=== PATIENT | male | born 1945 | race Caucasian/White ===

== ENCOUNTER 2016-04-05 09:58 | Observation (INO) | payer OTHER ==
[~2016-04-05] VITALS: Ht 172.7 cm; Wt 74.8 kg
[~2016-04-05 09:58] MED LIST: APAP500 MG PO; ASPIR 8181 MG PO; CALCIUM CARBON650 M1 PO; CLOPIDOGREL75 MG PO; COLESTIPOL PO; FLOMAX(MONOGRA0.4 MG PO; LIPITOR80 MG PO; LOPRESSOR 25MG25 MG PO; MULTIVITAMIN1 TA1 PO; NITROSTAT0.4 MG PO; PREDNISONE 1 MG1 MG PO; VITAMIN D3 202000 IU PO; ZOLOFT 100 MG100 MG PO
--- NOTE | 2016-04-05 10:24 | ED AMS/SEIZURE/WEAK/DIZZY ---
History of Present Illness General Chief Complaint: Dizziness Stated Complaint: DIZZINESS THIS AM, +LOC, HIT HEAD ON TABLE Source: patient, family Exam Limitations: no limitations Vital Signs & Intake/Output Vital Signs & Intake/Output Vital Signs Date Time Temp Pulse Resp B/P Pulse O2 O2 Flow FiO2 Ox Delivery Rate 04/05 1514 101.0 73 101/78 04/05 1413 80 20 118/56 96 Room Air Room Air 04/05 1412 80 118/56 04/05 1354 98.0 58 20 102/60 98 Room Air 04/05 1336 97.0 46 20 94/54 98 Room Air 04/05 1247 58 85/53 04/05 1146 74 20 116/55 97 Room Air Room Air 04/05 1048 97 Room Air Room Air 04/05 1044 56 88/60 04/05 1042 58 94/53 04/05 1008 96.8 52 20 64/40 Allergies Coded Allergies: NO KNOWN ALLERGIES (06/24/11) Reconcile Medications Acetaminophen (Unknown Strength) TABLET (Unknown Dose) PO PRN PAIN (Reported) Aspirin (Ecotrin*) 81 MG TABLET.DR 1 TAB PO DAILY HEART/BLOOD (Reported) Calcium Carbonate (Calcium) (Unknown Strength) TABLET (Unknown Dose) PO DAILY SUPPLEMENT (Reported) Cholecalciferol (Vitamin D3) (Vitamin D) (Unknown Strength) TABLET (Unknown Dose) PO DAILY SUPPLEMENT (Reported) Clopidogrel Bisulfate (Clopidogrel) 75 MG TABLET 1 TAB PO DAILY BLOOD THINNER (Reported) Dm/P-Ephed/Acetaminoph/Doxylam (Nathalie-Bradford Plus Cold+Flu Pkt) (Unknown Strength) POWD.PACK (Unknown Dose) PO AD COLD SYMPTOMS (Reported) Ezetimibe (Zetia) 10 MG TABLET 1 TAB PO DAILY CHOLESTEROL (Reported) Lisinopril 2.5 MG TABLET 1 TAB PO DAILY HEART/BP (Reported) Metoprolol Succinate 25 MG TAB 1 TAB PO DAILY BP/HEART (Reported) Multivitamin (Multi-Day Vitamins) 1 EACH TABLET 1 TAB PO DAILY SUPPLEMENT ( Reported) Niacinamide (Niacin) (Unknown Strength) TABLET (Unknown Dose) PO DAILY SUPPLEMENT (Reported) Tamsulosin HCl (Flomax) 0.4 MG CAP.ER.24H 1 CAP PO DAILY PROSTATE (Reported) Triage Note: C/O WEAKNESS, DIZZINESS, COUGH X 4 DAYS. HAD SYNCOPAL EPISODE THIS AM, HIT R SIDE OF FOREHEAD PT ON COUMADIN. PMH: PACEMAKER, [place], Triage Nurses Notes Reviewed? yes Onset: Just prior to arrival Duration: day(s): (4) Timing: recent history Injury Environment: home Severity: moderate HPI: Patient is a 70-year-old male with history of pacemaker, [place] presenting to the emergency Department chief complaint syncopal episode that happened this morning. Patient was sitting at the kitchen table when he felt lightheaded and passed out. Over the past 4 days he reports that he's been feeling weak and tired, tactile chills and fevers. Per he had staggering gait when he gets up to use the bathroom at night over the past couple days. Patient does take Coumadin daily. Denies any nausea or vomiting. Denies any palpitations. No visual changes. He reports that his head hurts over where he hit his head but other than that no head pain. Denies any neck pain. No back pain. Denies abdominal pain. He does report some diarrhea over the past 24 hours. Denies any urinary symptoms. No vomiting. Denies taking anything to help with symptoms that he does report recent exposure to influenza. He did get a flu shot this year. All of his primary care physicians are at the [facility]. (GEOVANNA ABBOTT) Past History Travel History Traveled to [place] past 21 day No Medical History Any Pertinent Medical History? see below for history Cardiovascular: myocardial infarction Influenza Vaccine: 02/27/06 Surgical History Surgical History: cardiac stents, pacemaker Psychosocial History Who do you live with Spouse What is your primary language Khmer Tobacco Use: Current Not Daily ETOH Use: occasional use Family History Family History, If Any: MOTHER (HTN). Hx Contributory? No (GEOVANNA ABBOTT) Review of Systems Review of Systems Constitutional: Reports: see HPI, chills, malaise, weakness. Comments Review of systems: See HPI, All other systems negative. Constitutional, no weight loss HEENT: No visual changes no sore throat Cardiovascular: No chest pain ,palpitation , orthopnea or ankle swelling Skin, no jaundice no rashes Respiratory: No dyspnea cough sputum or hemoptysis GI: No nausea no vomiting : No dysuria No hematuria Muscle skeletal: no back pain, no neck pain, Neurologic: No numbness Psych: No stress anxiety or depression,. Heme/endocrine: No bruising no bleeding no polyuria or polydipsia Immunology: No splenectomy or history of AIDS (GEOVANNA ABBOTT) Physical Exam Physical Exam General Appearance: well developed/nourished, no apparent distress, alert, awake , comfortable Comments: Well-developed well-nourished person in no acute distress HEENT: extraocular motion intact, no nystagmus. Pupils equally round and reactive to light and accommodation. Nose is atraumatic. External auditory canal and Tympanic membranes clear. Pharynx normal. No swelling or edema. Large hematoma approximately 4 cm in diameter noted right frontal bone. No step-off or bogginess noted to palpation over entire scalp. Neck: Supple, no lymphadenopathy, normal range of motion without pain or tenderness, no C-spine tenderness. Back: Nontender, no CVA tenderness. Full range of motion Cardiovascular: Regular rate and rhythms no murmurs rubs or gallops, normal JVP Respiratory: Chest nontender. No respiratory distress.breath sounds clear to auscultation bilaterally Abdomen: Soft, nontender nondistended, no appreciable organomegaly. Normal bowel sounds. No ascites Extremity: No edema, no calf tenderness to palpation, normal and equal pulses. Full range of motion of all extremities without difficulty or pain. Supply Chain Procurement Manager strength is equal and symmetric bilaterally. Muscular strength is 5/5 in all extremities. Neuro: Alert oriented x3, motor sensory normal, cranial nerves II through XII grossly intact. Cerebellar testing is unremarkable. Negative drop arm test. Skin: Other than hematoma noted on the forehead, No otherappreciable rash on exposed skin, skin is warm and dry. Psych: Mood and affect is normal, memory and judgment is normal. Core Measures ACS in differential dx? Yes CVA/TIA Diagnosis: No Severe Sepsis Present: No Septic Shock Present: No (GEOVANNA ABBOTT) Progress Differential Diagnosis: intracranial hemorrhage, dehydration, electrolyteabnormality, orthostatic hypotension,influenza, viral syndrome, Plan of Care: Orders Procedure Date/time Status Regular Diet 04/06 D Active Heart Healthy Diet 04/05 D Active BLOOD CULTURE 04/05 1521 Active Patient Data 04/05 1419 Active OXYGEN SETUP (GEN) 04/05 1404 Active Saline Lock 04/[address] in observation 04/05 1404 Active Vital Signs 04/05 1404 Active Activity/Ambulation 04/05 1404 Active Code Status 04/05 1404 Active Intake & Output 04/05 1047 Active URINALYSIS 04/05 1024 Active RAPID VIRAL INFLUENZA A 04/05 1023 Complete VIRAL CULTURE 04/05 1023 Active TROPONIN LEVEL 04/05 1023 Complete PROTHROMBIN TIME 04/05 1023 Complete LACTIC ACID 04/05 1023 Complete COMPREHENSIVE METABOLIC PANEL 04/05 1023 Complete CBC WITHOUT DIFFERENTIAL 04/05 1023 Complete TYPE & SCREEN (NOT X-MATCH) 04/05 1023 Complete MISTAKE 04/05 1008 Active EKG 04/05 1003 Active Laboratory Tests 04/05/16 1323: Lactic Acid Cancelled 04/05/16 1030: Anion Gap 9, Estimated GFR > 60, BUN/Creatinine Ratio 34.0 H, Glucose 118 H, Lactic Acid 1.3, Calcium 9.5, Total Bilirubin 0.6, AST 36, ALT 44, Alkaline Phosphatase 73, Troponin I 0.05, Total Protein 6.3, Albumin 3.5, Globulin 2.8, Albumin/Globulin Ratio 1.3, PT 12.2, INR 1.16, CBC w Diff NO MAN DIFF REQ, RBC 5.40, MCV 94.3 H, MCH 32.3 H, RDW 14.4, MPV 8.2, Gran % 71.1, Lymphocytes % 12.0 L, Monocytes % 14.5 H, Eosinophils % 2.2, Basophils % 0.2, Absolute Granulocytes 5.2, Absolute Lymphocytes 0.9 L, Absolute Monocytes 1.1 H, Absolute Eosinophils 0.2, Absolute Basophils 0, PUBS MCHC 34.2 04/05/16 1023: Virus Culture Pending Microbiology 04/05 152 BLOOD: Blood Culture - ORD 04/05 152 BLOOD: Blood Culture - ORD Diagnostic Imaging: Viewed by Me: CT Scan. Discussed w/RAD: CT Scan. Radiology Impression: PATIENT: ASHLIE CHEUNG PRESENT AGE: 70 PATIENT ACCOUNT NO: [id number] : 46 LOCATION: [facility] ORDERING PHYSICIAN: GEOVANNA CARRILLO SERVICE DATE: 04/05/16-1001 EXAM TYPE: CAT - CT CERV SPINE WO IV CONTRAST; CT HEAD WO IV CONTRAST Addendum: The previously described right parotid nodule is not included on the [id number] on the current study. This could be further clinically correlated, or followed up with a CT scan of the neck. Addendum Signed by: RISSA NEWELL MD 04/05/16 7551 EXAMINATION: CT HEAD WITHOUT CONTRAST CT CERVICAL SPINE WITHOUT CONTRAST CLINICAL INFORMATION: Head injury and loss of consciousness. Assess for intracranial pathology or fracture. COMPARISON: CT scan of the head 07/20/2013. TECHNIQUE: Multidetector CT imaging of the head and cervical spine was performed without the use of intravenous contrast. Coronal and sagittal reformatted images were generated at the technologist workstation. DLP: 991.35 mGy-cm. FINDINGS: CT head: There is no evidence of acute intracranial hemorrhage or territorial infarction. No abnormal mass-effect or midline shift is seen. Ervin to white matter differentiation is well preserved. No extra-axial fluid collections are identified. The ventricles and sulci are commensurately prominent consistent with mild diffuse volume loss, similar compared to the prior study. There are bilateral basal ganglia and left thalamic lacunar infarcts, similar compared to the prior study. There are scattered areas of low attenuation in the periventricular and subcortical white matter, consistent with chronic microvascular ischemic changes. There is a right supraorbital scalp hematoma without evidence of laceration. No fractures are demonstrated. The mastoid air cells are well-aerated. There is relatively extensive mucoperiosteal thickening in the bilateral ethmoid and sphenoid sinuses. There is mucoperiosteal thickening and likely retention cyst formation in the left maxillary sinus. CT cervical spine: There is straightening of the cervical lordosis. There are no compression fractures and vertebral body heights are maintained. There is multilevel narrowing of intervertebral disc height, most severe at C5-C6 and C6- C7. There are uncovertebral osteophytes and foraminal narrowing, most prominent on the right. There are facet arthropathic changes. The atlantoaxial distance is decreased consistent with degenerative changes. The prevertebral soft tissues are unremarkable. The lateral masses of C1 and C2 are normally aligned and the dens is intact. Atlantooccipital alignment is normal. The cervicomedullary and spinal cord are grossly unremarkable. There are relatively extensive atheromatous calcifications of the neck vessels. Left chest pacemaker generated and 2 leads are partially demonstrated. There are 4 mandibular dental implants. There are sequelae of prior median sternotomy. There is a stent in the left subclavian artery. The imaged lung apices are clear. IMPRESSION: 1. There are no acute bleeds or territorial infarcts. 2. There is a right supraorbital scalp contusion. There are no acute calvarial fractures. 3. There are changes consistent with diffuse volume loss and there are sequelae of chronic vascular changes. 4. There are no acute fractures or subluxations in the cervical spine. 5. There are multilevel degenerative changes. DICTATED BY: RISSA NEWELL MD DATE/ TIME DICTATED:04/05/161114 CHUCKING MACHINE SET UP OPERATOR TOOL:QUETA DATE/TIME TRANSCRIBED: 04/05/161114 CXR Impression: PATIENT: ASHLIE CHEUNG PRESENT AGE: 70 PATIENT ACCOUNT NO: [id number] : 46 LOCATION: [facility] ORDERING PHYSICIAN: GEOVANNA CARRILLO SERVICE DATE: 04/05/16 EXAM TYPE: RAD - XRY-PORTABLE CHEST XRAY EXAMINATION: XR PORTABLE CHEST CLINICAL INFORMATION: Syncope. COMPARISON: Chest x-ray 07/21/2013 TECHNIQUE: Portable AP view of the chest was obtained. 2:17 PM FINDINGS: Status post median sternotomy for CABG. Vascular stent left superior mediastinum. Pacemaker lead in right atrium and right ventricle in good position. No pulmonary vascular congestion. Lungs are clear. No pleural effusion. IMPRESSION: No acute abnormality of the chest. Initial ED EKG: NSR (82) Prior EKG: unchanged Comments: on arrival patient is hypotensive, alert and oriented, cranial nerves are intact. Patient is on Coumadin with a head injury. Patient will go for CT of the head and neck. IV fluids initiated. Blood work was drawn and sent including type and screen. Flu swab sent. Patient is resting well. Declined pain medication. 04/05/2016 1:20:20 PM patient informed of all lab work results and imaging results. Patient has influenza. Blood pressure seems to be responding to fluids, patient reports that he still feeling fatigued and lightheaded intermittently. Patient will be admitted for IV hydration, neuro checks secondary to head injury on Coumadin, influenza. Patient still neurologically intact. (JOHNIE CARRILLO,GEOVANNA) Departure Departure Time of Disposition: 1307 Disposition: STILL A PATIENT Condition: Stable Clinical Impression Primary Impression: Influenza A Secondary Impressions: Hypotension Qualifiers: Hypotension type: unspecified hypotension type Qualified Code: I95.9 - Hypotension, unspecified Syncope Qualifiers: Syncope type: unspecified Qualified Code: R55 - Syncope and collapse Referrals: PATIENT HAS NO PRIMARY CARE DR (PCP/Family) Departure Forms: Customer Survey General Discharge Information Admission Note Documentation of Exam: Documentation of any treatments & extenuating circumstances including Concerns Regarding Discharge (functional status, medication knowledge or non-compliance, living conditions, etc.) that warrant an admission rather than observation: Observation Note Spoke With: AC CHAU,DAYANNA Physician Advisor Notified: WAN CHAU,TULIO Garcia Place Patient In: Non-ED OBS Care Area Rationale for Observation: My rational for observation is as follows . Patient requiring IV hydration, blood pressure checks, neuro checks secondary to head injury and on Coumadin. Discharge at this time would be medically harmful, we need to monitor for episode of hypotension again. (JOHNIE CARRILLO,GEOVANNA) PA/DIRECTOR OF OUTSIDE SALES Co-Sign Statement Statement: ED Attending supervision documentation- x I saw and evaluated the patient. I have also reviewed all the pertinent lab results and diagnostic results. I agree with the findings and the plan of care as documented in the PA's/DIRECTOR OF OUTSIDE SALES's documentation. [] I have reviewed the ED Record and agree with the PA's/DIRECTOR OF OUTSIDE SALES's documentation. [] Additions or exceptions (if any) to the PAs/DIRECTOR OF OUTSIDE SALES's note and plan are summarized below: [] (MIRTHA CHAU,CM)
[2016-04-05 10:48] LABS: ABSOLUTE BASOPHIL COUNT 0 /CUMM (0.0-0.2); ABSOLUTE EOSINOPHIL COUNT 0.2 /CUMM (0.0-0.7); ABSOLUTE GRANULOCYTE CT 5.2 /CUMM (1.4-6.5); ABSOLUTE LYMPH COUNT 0.9 /CUMM (1.2-3.4); ABSOLUTE MONOCYTE COUNT 1.1 /CUMM (0.10-0.60); BASOPHIL % 0.2 % (0.0-2.0); EOSINOPHIL % 2.2 % (0-5); GRANULOCYTE % 71.1 % (42.2-75.2); HEMATOCRIT 50.9 % (42-52); MEAN CORPUSCULAR HGB 32.3 PG (27.0-31.0); MEAN CORPUSCULAR HGB CONC 34.2 G/DL (33.0-37.0); MEAN CORPUSCULAR VOLUME 94.3 FL (80.0-94.0); MEAN PLATELET VOLUME 8.2 FL (7.4-10.4); PLATELET COUNT 135 /CUMM (130-400); RBC DISTRIBUTION WIDTH 14.4 % (11.5-14.5); WHITE BLOOD CELL COUNT 7.4 /CUMM (4.8-10.8)
[2016-04-05 10:59] LABS: PT 12.2 SEC (9.4-12.5)
--- NOTE | 2016-04-05 11:39 | CT SCAN REPORT ---
EXAMINATION: CT HEAD WITHOUT CONTRAST CT CERVICAL SPINE WITHOUT CONTRAST CLINICAL INFORMATION: Head injury and loss of consciousness. Assess for intracranial pathology or fracture. COMPARISON: CT scan of the head 07/20/2013. TECHNIQUE: Multidetector CT imaging of the head and cervical spine was performed without the use of intravenous contrast. Coronal and sagittal reformatted images were generated at the technologist workstation. DLP: 991.35 mGy-cm. FINDINGS: CT head: There is no evidence of acute intracranial hemorrhage or territorial infarction. No abnormal mass-effect or midline shift is seen. Ervin to white matter differentiation is well preserved. No extra-axial fluid collections are identified. The ventricles and sulci are commensurately prominent consistent with mild diffuse volume loss, similar compared to the prior study. There are bilateral basal ganglia and left thalamic lacunar infarcts, similar compared to the prior study. There are scattered areas of low attenuation in the periventricular and subcortical white matter, consistent with chronic microvascular ischemic changes. There is a right supraorbital scalp hematoma without evidence of laceration. No fractures are demonstrated. The mastoid air cells are well-aerated. There is relatively extensive mucoperiosteal thickening in the bilateral ethmoid and sphenoid sinuses. There is mucoperiosteal thickening and likely retention cyst formation in the left maxillary sinus. CT cervical spine: There is straightening of the cervical lordosis. There are no compression fractures and vertebral body heights are maintained. There is multilevel narrowing of intervertebral disc height, most severe at C5-C6 and C6-C7. There are uncovertebral osteophytes and foraminal narrowing, most prominent on the right. There are facet arthropathic changes. The atlantoaxial distance is decreased consistent with degenerative changes. The prevertebral soft tissues are unremarkable. The lateral masses of C1 and C2 are normally aligned and the dens is intact. Atlantooccipital alignment is normal. The cervicomedullary and spinal cord are grossly unremarkable. There are relatively extensive atheromatous calcifications of the neck vessels. Left chest pacemaker generated and 2 leads are partially demonstrated. There are 4 mandibular dental implants. There are sequelae of prior median sternotomy. There is a stent in the left subclavian artery. The imaged lung apices are clear. IMPRESSION: 1. There are no acute bleeds or territorial infarcts. 2. There is a right supraorbital scalp contusion. There are no acute calvarial fractures. 3. There are changes consistent with diffuse volume loss and there are sequelae of chronic vascular changes. 4. There are no acute fractures or subluxations in the cervical spine. 5. There are multilevel degenerative changes.
[2016-04-05] MEDS ORDERED: METOPROLOL SUCC25 M1 PO (13:36)
[2016-04-05] MEDS ORDERED: LISINOPRIL2.5 M1 PO (13:37)
[2016-04-05] MEDS ORDERED: ZETIA10 M1 PO (13:37)
[2016-04-05] MEDS ORDERED: CLOPIDOGREL75 M1 PO (13:38)
[2016-04-05] MEDS ORDERED: FLOMAX0.4 M1 PO (13:38)
[2016-04-05] MEDS ORDERED: MULTI-DAY VITA1 EACH PO (13:39)
[2016-04-05] MEDS ORDERED: NIACIN500 M6 PO (13:39)
[2016-04-05] MEDS ORDERED: ASPIRIN EC81 M1 PO (13:39)
[2016-04-05] MEDS ORDERED: VITAMIN D2000 UNI1 PO (13:40)
[2016-04-05] MEDS ORDERED: CALCIUM600 M2 PO (13:40)
[2016-04-05] MEDS ORDERED: ACETAMINOPHEN500 M4 PO (13:41)
[2016-04-05] MEDS ORDERED: ALKA-SELTZER P1 EA10 PO (13:42)
--- NOTE | 2016-04-05 14:55 | RADIOLOGY REPORT ---
EXAMINATION: XR PORTABLE CHEST CLINICAL INFORMATION: Syncope. COMPARISON: Chest x-ray 07/21/2013 TECHNIQUE: Portable AP view of the chest was obtained. 2:17 PM FINDINGS: Status post median sternotomy for CABG. Vascular stent left superior mediastinum. Pacemaker lead in right atrium and right ventricle in good position. No pulmonary vascular congestion. Lungs are clear. No pleural effusion. IMPRESSION: No acute abnormality of the chest.
--- NOTE | 2016-04-05 15:28 | History & Physical ---
KATHRYN LIVE MD 04/05/16 1527: General Information and HPI Source of Information: patient, family Exam Limitations: no limitations History of Present Illness: Patient is a 67-year-old male with a past medical history of CAD status post CABG in 1998, history of PCI of his RCA and left subclavian artery, peripheral vascular disease,1st-degree AV block, Polymyalgia rheumatica,Benign prostatic hypertrophy, left femoral pseudoaneurysm, femoral bypass,Dyslipidemia,back surgery(meniscus surgery for L5-S1 degenerative disc disease) obstructive sleep apnea, myotonic dystrophy, posttraumatic stress disorder, rotator cuff surgery with continued with chief complaints of generalized body ache, runny nose since last 3-4 days, and an episode of fall in morning. Patient claims that he was sitting at the kitchen table when he felt lightheaded and suddenly fell down,followed by hitting of his face and head.He developed bruise and hematoma in right frontal area. He denies any palpitation, headache, blurry vision, loss of consciousness, episode of seizure,tongue bite, incontinence of stool and urine. He was having very loose and flulike symptoms since last 3-4 days for that. He took some herbal remedies. He did not follow any Doctor.He also claims that he feels dehydrated as his fluid intake is very low and also he has sick contact.His daughter is sick with flu. He also has couple of episodes of diarrheasince 1-2 days. Allergies/Medications Allergies: Coded Allergies: NO KNOWN ALLERGIES (06/24/11) Home Med list Acetaminophen (Unknown Strength) TABLET (Unknown Dose) PO PRN PAIN (Reported) Aspirin (Ecotrin*) 81 MG TABLET.DR 1 TAB PO DAILY HEART/BLOOD (Reported) Calcium Carbonate (Calcium) (Unknown Strength) TABLET (Unknown Dose) PO DAILY SUPPLEMENT (Reported) Cholecalciferol (Vitamin D3) (Vitamin D) (Unknown Strength) TABLET (Unknown Dose) PO DAILY SUPPLEMENT (Reported) Clopidogrel Bisulfate (Clopidogrel) 75 MG TABLET 1 TAB PO DAILY BLOOD THINNER (Reported) Dm/P-Ephed/Acetaminoph/Doxylam ([place] Plus Cold+Flu Pkt) (Unknown Strength) POWD.PACK (Unknown Dose) PO AD COLD SYMPTOMS (Reported) Ezetimibe (Zetia) 10 MG TABLET 1 TAB PO DAILY CHOLESTEROL (Reported) Lisinopril 2.5 MG TABLET 1 TAB PO DAILY HEART/BP (Reported) Metoprolol Succinate 25 MG TAB 1 TAB PO DAILY BP/HEART (Reported) Multivitamin (Multi-Day Vitamins) 1 EACH TABLET 1 TAB PO DAILY SUPPLEMENT ( Reported) Niacinamide (Niacin) (Unknown Strength) TABLET (Unknown Dose) PO DAILY SUPPLEMENT (Reported) Tamsulosin HCl (Flomax) 0.4 MG CAP.ER.24H 1 CAP PO DAILY PROSTATE (Reported) Past History Travel History Traveled to [place] past 21 day No Medical History Cardiovascular: myocardial infarction Influenza Vaccine: 02/27/06 Surgical History Surgical History: cardiac stents, pacemaker Past Family/Social History Family History Relations & Conditions if any MOTHER (HTN). Psychosocial History ETOH Use: occasional use Review of Systems Review of Systems Constitutional: Reports: fever, weakness. Denies: chills, diaphoresis. EENTM: Reports: nasal congestion. Cardiovascular: Denies: chest pain, edema, orthopena, palpitations, peripheral edema. Respiratory: Denies: cough, hemoptysis, orthopnea, short of breath, sputum production. GI: Denies: abdominal pain, bloating, constipation, diarrhea, distention, bowel incontinence, melena, nausea. Genitourinary: Denies: discharge, dysuria, frequency, hematuria, hesitation. Musculoskeletal: Denies: back pain, gout, joint pain, joint swelling, muscle pain, muscle stiffness. Skin: Denies: no symptoms. Neurological/Psychological: Reports: anxiety. Exam & Diagnostic Data Last 24 Hrs of Vital Signs/I&O Vital Signs Date Time Temp Pulse Resp B/P Pulse O2 O2 Flow FiO2 Ox Delivery Rate 04/05 1749 78 98/52 04/05 1745 Room Air Room Air 04/05 1744 98.4 04/05 1731 98.4 78 20 98/52 94 04/05 1659 101.3 77 20 94/55 100 Room Air Room Air 04/05 1650 101.3 04/05 1514 101.0 73 101/78 04/05 1413 80 20 118/56 96 Room Air Room Air 04/05 1412 80 118/56 04/05 1354 98.0 58 20 102/60 98 Room Air 04/05 1336 97.0 46 20 94/54 98 Room Air 04/05 1247 58 85/53 04/05 1146 74 20 116/55 97 Room Air Room Air 04/05 1048 97 Room Air Room Air 04/05 1044 56 88/60 04/05 1042 58 94/53 04/05 1008 96.8 52 20 64/40 Intake & Output 04/05 1600 04/05 0800 04/05 0000 Intake Total 3000 Output Total Balance 3000 Intake, IV 3000 Patient 74.843 kg Weight Physical Exam General Appearance Alert, Oriented X3, Cooperative, No Acute Distress Skin No Rashes, No Breakdown HEENT Atraumatic, PERRLA, EOMI Neck Supple, No JVD Cardiovascular Normal S1, Normal S2 Lungs mild basilar MORE on the right side Abdomen Soft, No Tenderness, No Hepatospenomegaly Neurological Normal Speech Assessment/Plan Assessment: Patient is a 67-year-old male with a past medical history of CAD status post CABG in 1998, history of PCI of his RCA and left subclavian artery, peripheral vascular disease,1st-degree AV block, Polymyalgia rheumatica,Benign prostatic hypertrophy, left femoral pseudoaneurysm, femoral bypass,Dyslipidemia,back surgery(meniscus surgery for L5-S1 degenerative disc disease) obstructive sleep apnea, myotonic dystrophy, posttraumatic stress disorder, rotator cuff surgery with continued with chief complaints of generalized body ache, runny nose since last 3-4 days, and an episode of fall in morning. Vital signs at the time of admission -Tem-101.0,P-52.RR-20,BP-64/40 Pertinent -hemoglobin 17.4, hematocrit 50.9, CT head and cervical spine - * No any acute bleed or territorial infarcts, no acute calvarial fractures, no acute fractures or subluxation in the cervical spine, * right suborbital scalp contusion was seen, diffuse volume loss, probably secondary to chronic vascular changes,multilevel degenerative disease in cervical spine. Chest Xray - s/p Median sternostomy for CABG, sclera stent left superior mediastinum, pacemaker lead in the right atrium and the right ventricle and good position, no pulmonary vascular congestion or any acute cardiopulmonary changes. Problem list - Influenza A Hypotension, probably secondary to dehydration or diarrhea CAD status post CABG in 1998, history of PCI of his RCA and left subclavian artery, peripheral vascular disease, 1st-degree AV block, Polymyalgia rheumatica on prednisone, Benign prostatic hypertrophy, left femoral pseudoaneurysm, femoral bypass, Hypertension Hyperlipidemia back surgery(meniscus surgery for L5-S1 degenerative disc disease) myotonic dystrophy, posttraumatic stress disorder, rotator cuff surgery Plan - * As the patient is having multiple cardiac problems, including CHF, pacemaker, and he fell down without any awareness. We will observe the patient for signs of arrhythmias. * Admit the patient in the telemetry * We'll start patient on IV fluid as he presented with a low blood pressure, probably secondary to dehydration or fever or diarrhea * We will repeat the echocardiogram to know cardiac status * We'll continue all home medication * We will regularly monitor CBC and BEP * The flu test was positive,for influenza A, as he had multiple medical problems presented with the shock and his age is more than 66. although, he is out of the time period of 48hrs, Iwould still think for tamiflu, although I will discuss with attending and follow his rcms * Strict intake output charting * Daily weight * DVT prophylaxis-heparin/ALP S * CODE STATUS-full code As Ranked By This Provider Problem List: 1. Syncope Qualifiers Syncope type: unspecified Qualified Code: R55 - Syncope and collapse 2. Influenza A 3. Peripheral vascular disease 4. CAD S/P BYPASS- 4 VESSELS 5. Degeneration of lumbosacral intervertebral disc 6. Dizziness Core Measures/Miscellaneous Acute Coronary Syndrome ACS Diagnosis: No Cerebrovascular Accident CVA/TIA Diagnosis: No Congestive Heart Failure CHF Diagnosis: No Venous Thromboembolism VTE Risk Factors: Age > 40 VTE Prophylaxis Ordered Inpt: Mechanical (ALPS/TEDS) [facility] d/t: No contraindications No VTE Pharm Prophylaxis d/t: No contraindications VTE Diagnosis: No VTE Type: NONE VTE Confirmed by (Test): NONE Severe Sepsis Severe Sepsis Present: No Septic Shock Septic Shock Present: No Miscellaneous Documentation Attending Case Discussed With: DAYANNA SHEN MD Primary Care Physician: PATIENT HAS NO PRIMARY CARE DR Patient sees these Specialists none Level of Patient Care: Telemetry HENRY POWELL 04/05/16 1528: Resident Review Statement Resident Statement: examined this patient, discussed with environmental intern, agreed with environmental intern Other Findings: This is a 70-year-old male past medical history of coronary artery disease status post CABG 4 vessels (1998) and PCI, peripheral artery disease status post femoral popliteal bypass (remote history, questionable myotonic dystrophy, polymyalgia rheumatica on prednisone, posttraumatic stress disorder , hyperlipidemia, degenerative disc disease, presented with chief complaint of syncopal episode that happened this morning. He was sitting at the kitchen table when he felt lightheaded and passed out.He fell on his face and hit the right frontal area and had a mild bruise.He is unsure if he lost conciousness or not. He denied seizure like activity, loss of blowel ,bladder control,chest pain, tongue biting or any prior aura. Over the past 4 days he reports that he's been feeling weak and tired, chills and fever. Per the he has been having staggering gait for the last couple of days. Of note patient is on daily Coumadin therapy. With the fall he did hurt his head, however he does not complain of any headache. He denies any nausea, vomiting, back pain, abdominal pain. He does report some diarrhea over the last 24 hours. Positive contact history for flu. Vitals on admission : MAXIMUM TEMPERATURE of 101, pulse of 50-80, respiration of 20, blood pressure in the range of 85 218 systolic and 50-60 diastolic. He was saturating 98% on room air. White count of 7.4, H/H was 17.4/50.9, platelet of 135. Electrolytes within the normal limit BUN and creatinine 34/1.0, sodium of 139. Glucose of 118. CT head and cervical spine did not show any acute bleed or territorial infarcts, right suborbital scalp contusion was seen, there were no acute calvarial fractures. Changes were consistent with diffuse volume loss, which could be a sequelae of chronic vascular changes, no acute fractures or subluxation in the cervical spine, multilevel degenerative disease. Chest Xray s/p Median sternostomy for CABG, sclera stent left superior mediastinum, pacemaker lead in the right atrium and the right ventricle and good position, no pulmonary vascular congestion or any acute cardiopulmonary changes. EKg : NSR, first degree Av block VT : 224, Qtc : 435,PVC's At the emergency room department he received 3 L of normal saline bolus. Problem list alongwith assesment and plan : 1. Mechanical fall ? syncope * Possible causes nuerogenic v/s cardiogenic syncope * check orthostatic vital signs. * Continue telemetry monitoring, rule out caridac cuase of syncope, rule out arrythmia. * Patient is very dehydrated. * Ct iv fluid supplementation. * PAtient recived 3 litres ofnromal saline, will continue gentle iv hydration at 75ml/hour * Previous echo is 2006, EF of 35 to 40%, will get another echo atthis admission. * Cautious with hydration. * Patient unsure lost conciousness or not, denied seizure like activity * ct nuerochecks * Denied complaint of sweating , or light headedness,palpitations or blurring of vision that would be consistent with vasovagal syncope. #2 Rapid Flu positive * Patient beyond 48 hours, therefore doesnot seem to be candidate fro tamiflu * Ct iv hydration * CT monitoring vitals closely. #3 Hypotension * 2/2 to volume loss due to dehydration * Ct iv hydration ct to monitor BP closely. #4 H/o CAD status post CABG * Stable * Ct home medications. * Ct metoprolol * Ct Zetia #5 right supraorbital scalp contusion * 2/2 to fall and hitting the head. * Willhold asprin for now. * Will ct DVT px with ALPS. #6 H/o Myotonic dystrophy. * Stable. Ct rest of home medicatinos for chronic illness. FC Mild/moderate, severe pain pathway DVT px : SERAFIN SHEN MD,[facility] 04/05/161950: Attending MD Review Statement Attending Statement Attending MD Statement: examined this patient, discuss w/resident/PA/STRETCHING PRESS OPERATOR, agreed w/resident/PA/STRETCHING PRESS OPERATOR, discussed with nursing Attending Assessment/Plan: 70M PMH CAD s/p CABG, PVD, HTN, BPH presenting with syncopal episode. Patient has been feeling weak and ill for 4 days and has not been eating or drinking much. He was sitting drinking coffee when he woke up on the floor. Lost consciousness for a second or two, no post-ictal state, no symptoms prior to syncope. Hit his right forehead on the ground, but does not complain of headache, vision changes, or any neurological complaints. Found to be influenza positive in ED. Appears dehydrated clinically and by labs. Ecchmosis on right forehead, exam otherwise benign. Initially hypotensive 66/40 but improved to 110/70 after 2L NS. Plan - Observation on telemetry - Continue gentle IV hydration, received 3L normal saline thus far - Not a candidate for Tamiflu given timing of symptoms - No antibiotics - Monitor renal function and electrolytes - Obtain echocardiogram - Continue home medications - DVT PPx
[2016-04-05 17:31] VITALS: BP 98/52
[2016-04-05 23:05] VITALS: BP 92/64
[2016-04-06 07:49] LABS: ABSOLUTE BASOPHIL COUNT 0 /CUMM (0.0-0.2); ABSOLUTE EOSINOPHIL COUNT 0.2 /CUMM (0.0-0.7); ABSOLUTE GRANULOCYTE CT 4.3 /CUMM (1.4-6.5); ABSOLUTE LYMPH COUNT 1.2 /CUMM (1.2-3.4); ABSOLUTE MONOCYTE COUNT 0.8 /CUMM (0.10-0.60); BASOPHIL % 0.2 % (0.0-2.0); GRANULOCYTE % 65.6 % (42.2-75.2); MEAN CORPUSCULAR HGB 31.8 PG (27.0-31.0); MEAN CORPUSCULAR VOLUME 93.4 FL (80.0-94.0); MEAN PLATELET VOLUME 8.9 FL (7.4-10.4); RBC DISTRIBUTION WIDTH 14.3 % (11.5-14.5); RED BLOOD CELL CT 4.78 /CUMM (4.70-6.10); WHITE BLOOD CELL COUNT 6.5 /CUMM (4.8-10.8)
[2016-04-06 08:00] VITALS: BP 90/58
--- NOTE | 2016-04-06 08:05 | PN- Housestaff ---
MARIA T CHAU,KATHRYN 04/06/16 0805: Subjective Follow-up For: Syncope Influenza A Dehydration Complaints: PT is feeling much uncomfortable in the hospital because of the bed, he want to go home as soon as possible Tele-Events Since Last Visit: No overnight events, continues to have first-degree block Subjective: Patient is seen and examined at the bedside. He was much better than yesterday. He denies of any dizziness, nausea, vomiting, chest pain. His weakness has been improved. Discussed with the nurse, according to her his blood pressure is continuously towards lower side. Also, he is negative for orthostatic hypotension. According to the patient his baseline blood pressure is always been near 105/70. Review of Systems Constitutional: Denies: no symptoms. EENTM: Denies: no symptoms. Cardiovascular: Denies: no symptoms. Respiratory: Denies: no symptoms. Gastrointestinal: Denies: no symptoms. Genitourinary: Denies: no symptoms. Musculoskeletal: Denies: no symptoms. Skin: Denies: no symptoms. Neurological/Psychological: Denies: no symptoms. Objective Last 24 Hrs of Vital Signs/I&O Vital Signs Date Time Temp Pulse Resp B/P Pulse O2 O2 Flow FiO2 Ox Delivery Rate 04/06 1739 97.7 / 1626 97.7 77 20 96/70 93 /08 1607 97.9 /08 1130 69 98/70 02/08 1114 98.5 02/08 1106 77 90/58 /08 1106 77 90/58 /08 1104 77 90/58 /08 0800 98.3 77 20 90/58 93 Room Air 04/06 0542 99.1 / 0000 96 Room Air 04/05 2305 98.4 72 22 92/64 96 Room Air 04/05 2230 98.4 Intake & Output 04/06 1600 /08 0800 /08 0000 Intake Total 1340 1080 1080 Output Total 450 725 350 Balance 890 355 730 Intake, IV 700 600 600 Intake, Oral 640 480 480 Number 0 Bowel Movements Output, Urine 450 725 350 Patient 74.843 kg Weight Physical Exam General Appearance: Alert, Oriented X3, Cooperative, No Acute Distress Skin: No Rashes, small bluish discoloration on right supraorbital area HEENT: Atraumatic, PERRLA, EOMI Neck: Supple, No JVD Cardiovascular: Regular Rate, Normal S1, Normal S2 Lungs: mild basilar crackles Abdomen: Normal Bowel Sounds, Soft, No Tenderness Neurological: Normal Speech Extremities: No Clubbing, No Cyanosis, No Edema Vascular: Normal Pulses, Pulses Symmetrical Assessment/Plan Assessment: Patient is a 67-year-old male with a past medical history of CAD status post CABG in 1998, history of PCI of his RCA and left subclavian artery, peripheral vascular disease,1st-degree AV block, Polymyalgia rheumatica,Benign prostatic hypertrophy, left femoral pseudoaneurysm, femoral bypass,Dyslipidemia,back surgery(meniscus surgery for L5-S1 degenerative disc disease) obstructive sleep apnea, myotonic dystrophy, posttraumatic stress disorder, rotator cuff surgery with continued with chief complaints of generalized body ache, runny nose since last 3-4 days, and an episode of fall in morning. Vital signs-temperature 97.7, pulse 77, respiratory rate 20, blood pressure 96/ 70, SPO2 93% on room air Orthostatic vitals -blood pressure 98/70 on lying, 92/56 on sitting, 82/54 on standing Problem list- Problem list - Influenza A right supraorbital scalp contusion Hypotension, probably secondary to dehydration or diarrhea CAD status post CABG in 1998, history of PCI of his RCA and left subclavian artery, peripheral vascular disease, 1st-degree AV block, Polymyalgia rheumatica on prednisone, Benign prostatic hypertrophy, left femoral pseudoaneurysm, femoral bypass, Hypertension Hyperlipidemia back surgery(meniscus surgery for L5-S1 degenerative disc disease) myotonic dystrophy, posttraumatic stress disorder, rotator cuff surgery NOTE -According to the patient, he was given 80 mgs of atorvastatin, 3-4 years ago and later he started having generalized body ache and muscle weakness. Doctors at [facility] were not able to accurately find the cause, thats why they did the muscle biopsy and found that the he is having myotonic dystrophy. As atorvastatin exacerbate his symptoms, he doesn't want to take it again. Plan - * We will continue to observe the patient in the telemetry * We will increase the IV fluid 100 mL per hour,as his blood pressure is low * We will follow the echocardiogram * We'll withhold the lisinopril and metoprolol as his blood pressure is lower side * We will restart his aspirin and clopidogrel * His magnesium was 2 * We will regularly monitor CBC and BEP * The flu test was positive,for influenza A, as he had multiple medical problems presented with the shock and his age is more than 66. although, he is out of the time period of 48hrs, I would still think for tamiflu, although I will discuss with attending and follow his rcms * Strict intake output charting * Daily weight * DVT prophylaxis-heparin/ALP S * CODE STATUS-full code Problem List: 1. Syncope 2. Hypotension 3. Influenza A 4. Scalp contusion Pain Ratin Pain Location: right supraorbital area Pain Goal: Remain pain free Pain Plan: mild Tomorrow's Labs & Rationales: cbc, bep, Mg DVT/Prophylaxis: mechanical, pharmacological DAYANNA SHEN MD 04/06/16 1157: Attending MD Review Statement Attending Statement Attending MD Statement: examined this patient, discuss w/resident/PA/CERTIFIED REGISTERED NURSE PRACTITIONER, agreed w/resident/PA/CERTIFIED REGISTERED NURSE PRACTITIONER, reviewed EMR data (avail) Attending Assessment/Plan: 70M PMH CAD s/p CABG, PVD, HTN, BPH presenting with syncopal episode. Patient has been feeling weak and ill for 4 days and has not been eating or drinking much. He was sitting drinking coffee when he woke up on the floor. Lost consciousness for a second or two, no post-ictal state, no symptoms prior to syncope. Hit his right forehead on the ground, but does not complain of headache, vision changes, or any neurological complaints. Found to be influenza positive in ED. Appears dehydrated clinically and by labs. Ecchmosis on right forehead, exam otherwise benign. Patient feels much better today. He is eating and drinking well and his only complaint is that he did not sleep well in the hospital bed. Vitals have improved, afebrile overnight. Plan - Continue gentle IV hydration, received 3L normal saline thus far - Not a candidate for Tamiflu given timing of symptoms - No antibiotics - Monitor renal function and electrolytes - Obtain echocardiogram - Continue home medications - DVT PPx - Pending echocardiogram and ambulation, patient can be discharged this afternoon or tomorrow morning
[2016-04-06 08:14] LABS: HEMATOCRIT 44.7 % (42-52); PLATELET COUNT 118 /CUMM (130-400)
[2016-04-06 11:30] VITALS: BP 98/70
--- NOTE | 2016-04-06 15:23 | Cons- Cardiology ---
General Information and HPI Consulting Request Date of Consult: 04/06/16 Requested By: DAYANNA SHEN MD History of Present Illness: This patient is a 70 year old male with history of coronary artery disease, status post coronary artery bypass grafting back in 1998. This consisted of 4 grafts and he also had aortobifemoral bypass 15-20 years ago. In addition, the patient has a known chronic first degree AV block. The patient was initially seen in the setting of an acute inferior wall myocardial infarction for which TNK was administered. The patient's current admission is for syncope. He has had "Flu-like" symptoms of weakness, runny nose and generalized achiness. He was sitting at his kitchen table when he noted some premonitory symptoms of lightheadedness without palpitations and then subsequently passed out. In general he has not been feeling lightheaded and otherwise denies any chest pain, pressure or tightness, shortness of breath or palpitations. The patient does feel back to normal at this point in time. It should be noted that this patient has a myotonic dystrophy and does not have the muscle strength that he once had. This patient had a cardiac catheterization performed by Dr. Comer at the [facility] prior to a surgical procedure. This resulted in a difficult but successful angioplasty of the right coronary artery with 2 drug-eluting stents, a Premier 3.5 x 60 mm stent and a 3 x 12 mm stent, both placed in the mid RCA. The patient also had a left subclavian angioplasty performed for a total subclavian occlusion. With this procedure, the patient's symptoms of chest and arm discomfort have completely resolved. An echocardiogram was also obtained during this admission. It did show a decreased ejection fraction of 23% with global hypokinesis, including the mid anterolateral, apical wall and inferior wall. The right ventricle was normal in size and function. In terms of the cardiac valves, there was mild mitral and trace tricuspid regurgitation. This did represent a decrease in his EF from a previous EF of approximately 40%. Allergies/Medications Allergies: Coded Allergies: NO KNOWN ALLERGIES (06/24/11) Home Med List: Acetaminophen (Unknown Strength) TABLET (Unknown Dose) PO PRN PAIN (Reported) Aspirin (Ecotrin*) 81 MG TABLET.DR 1 TAB PO DAILY HEART/BLOOD (Reported) Calcium Carbonate (Calcium) (Unknown Strength) TABLET (Unknown Dose) PO DAILY SUPPLEMENT (Reported) Cholecalciferol (Vitamin D3) (Vitamin D) (Unknown Strength) TABLET (Unknown Dose) PO DAILY SUPPLEMENT (Reported) Clopidogrel Bisulfate (Clopidogrel) 75 MG TABLET 1 TAB PO DAILY BLOOD THINNER (Reported) Dm/P-Ephed/Acetaminoph/Doxylam (Nathalie-Rueter Plus Cold+Flu Pkt) (Unknown Strength) POWD.PACK (Unknown Dose) PO AD COLD SYMPTOMS (Reported) Ezetimibe (Zetia) 10 MG TABLET 1 TAB PO DAILY CHOLESTEROL (Reported) Lisinopril 2.5 MG TABLET 1 TAB PO DAILY HEART/BP (Reported) Metoprolol Succinate 25 MG TAB 1 TAB PO DAILY BP/HEART (Reported) Multivitamin (Multi-Day Vitamins) 1 EACH TABLET 1 TAB PO DAILY SUPPLEMENT ( Reported) Niacinamide (Niacin) (Unknown Strength) TABLET (Unknown Dose) PO DAILY SUPPLEMENT (Reported) Tamsulosin HCl (Flomax) 0.4 MG CAP.ER.24H 1 CAP PO DAILY PROSTATE (Reported) Review of Systems Review of Systems: diarrhea Past History Travel History Traveled to [place] past 21 day No Medical History Blood Transfusion Hx: No Cardiovascular: myocardial infarction Other Medical Hx: Dyslipidemia, a femoral bypass 20 years ago, coronary artery disease status post CABG x4, coronary artery disease status post anterior wall NV, status post thrombolytics, back surgery, meniscus surgery for L5-S1 degenerative disc disease, recent angioplasty to the right coronary artery and left subclavian, obstructive sleep apnea, polymyalgia rheumatica, myotonic dystrophy, elevated PSA, posttraumatic stress disorder, rotator cuff surgery. Surgical History Surgical History: cardiac stents, pacemaker Family History Relations & Conditions If Any: MOTHER (HTN). Psychosocial History Where Do You Live? Home Smoking Status: Former Smoker ETOH Use: occasional use Exam & Diagnostic Data Vital Signs and I&O Vital Signs Date Time Temp Pulse Resp B/P Pulse O2 O2 Flow FiO2 Ox Delivery Rate 04/06 1130 69 98/70 04/06 1114 98.5 04/06 1106 77 90/58 04/06 1106 77 90/58 04/06 1104 77 90/58 04/06 0800 98.3 77 20 /58 93 Room Air 04/06 0542 99.1 04/06 0000 96 Room Air 04/05 2305 98.4 72 22 92/64 96 Room Air 04/05 2230 98.4 04/05 1749 78 98/52 04/05 1745 Room Air Room Air 04/05 1744 98.4 04/05 1731 98.4 78 20 98/52 94 04/05 1659 101.3 77 20 94/55 100 Room Air Room Air 04/05 1650 101.3 04/05 1514 101.0 73 101/78 Intake & Output 04/06 1600 04/06 0800 04/06 0000 04/05 1600 04/05 0800 04/05 0000 Intake Total 1340 1080 1080 3000 Output Total 450 725 350 Balance 890 525 463 6100 Intake, IV 700 558 523 2682 Intake, Oral 640 480 480 Number 0 Bowel Movements Output, Urine 450 725 350 Patient 165 lb 165 lb Weight Physical Exam: General: WD/ WN male in NAD; alert and oriented x 2, decreased memory HEENT: NC/AT, PERRL, EOMI Neck: no JVD. no carotid bruit Heart : RRR w/o mumur Lungs: clear bilaterally Abdomen: soft, NT, +ve bowel sounds Extremties: no edema Diagnostic Data EKG Results sinus rhythm with large old anterior NV, old inferior NV, first degree AV block and rare PVC Assessment/Plan Assessment/Plan * This patient had an episode of syncope in the setting of mild dehydration and vasodilitation related to a viral syndrome and diarrhea. Nevertheless, this patient has had prior episodes of syncope and has a low EF with evidence of ventricular ectopy. He also has a first degree AV block. As such, both ventricular dysrhythmias and heart block need to be considered. Check a magnesium level and please obtain a repeat echocardiogram to assess this patient 's overall EF. * Continue to monitor this patient on telemetry and continue aspirin and Plavix. He should be on a statin. His BP is borderline on his current drug regimen that includes tamsulosin and Metoprolol. I would hold of on afterload reduction with an ACEI until the patient proves that his BP is reasonably stable and in the normal range to avoid his passing out again upon arising. Consult Acknowledgment - Thank you for your consult request.
[2016-04-06 16:26] VITALS: BP 96/70
--- NOTE | 2016-04-06 21:53 | Patient Discharge Instructions ---
Discharge Instructions General Discharge Information You were seen/treated for: Hypertension, right scalp hematoma, fall Special Instructions: Take all fall precaution Please follow-up with your PCP within a week of discharge Please follow-up with your facility security officer within a week of discharge We are holding and not starting your lisinorpil We will provide you with BP kit, if BP is high, please restart your BP medication. Please follow up with your PCP within one week of discharge and discuss management of blood pressure medications. Diet Recommended Diet: Heart Healthy Activity Full Activity/No Limits: No (As tolerated) Acute Coronary Syndrome Inclusion Criteria At DC or during hospital stay patient has or had the following: ACS DIAGNOSIS No Discharge Core Measures Meds if any: Prescribed or Continued at Discharge Meds if any: NOT Prescribed or Continued at Discharge Congestive Heart Failure Inclusion Criteria At DC or during hospital stay patient has or had the following: CHF DIAGNOSIS No Discharge Core Measures Meds if any: Prescribed or Continued at Discharge Meds if any: NOT Prescribed or Continued at Discharge Cerebrovascular accident Inclusion Criteria At DC or during hospital stay patient has or had the following: CVA/TIA Diagnosis No Discharge Core Measures Meds if any: Prescribed or Continued at Discharge Meds if any: NOT Prescribed or Continued at Discharge Venous thromboembolism Inclusion Criteria VTE Diagnosis No VTE Type NONE VTE Confirmed by (Test) NONE Discharge Core Measures - Per Current guidelines, there needs to be overlap - treatment for the first 5 days of Warfarin therapy. - If discharged on Warfarin prior to 5 days of - overlap therapy, the patient will need to be - assessed for post discharge needs including - *Post discharge parental anticoagulation - *Warfarin and/or parental anticoagulation education - *Follow up date to check INR post discharge At least 5 days overlap therapy as Inpatient No Meds if any: Prescribed or Continued at Discharge Warfarin No Note: Overlap Therapy is Warfarin and Anticoagulant Meds if any: NOT Prescribed or Continued at Discharge
[2016-04-06 23:25] VITALS: BP 98/70
--- NOTE | 2016-04-07 08:08 | PN- Housestaff ---
Subjective Follow-up For: Syncope Influenza A Dehydration /hypotension Complaints: no complaints Subjective: pt is seen and examine at the bed side. He was not having any active complains.Denies dizziness, blurry vision,nausea, headache. Still had some cough and runny nose. Review of Systems Constitutional: Reports: weakness. Denies: chills, diaphoresis, fever, malaise. EENTM: Denies: no symptoms. Cardiovascular: Denies: chest pain, edema, orthopena, palpitations, peripheral edema. Respiratory: Reports: cough. Denies: hemoptysis, orthopnea, short of breath, sputum production. Gastrointestinal: Denies: abdominal pain, bloating, constipation, diarrhea, distention, nausea. Genitourinary: Denies: no symptoms. Musculoskeletal: Denies: no symptoms. Skin: Denies: no symptoms. Objective Last 24 Hrs of Vital Signs/I&O Vital Signs Date Time Temp Pulse Resp B/P Pulse O2 O2 Flow FiO2 Ox Delivery Rate 04/07 927 72 118/60 04/06 2351 97.9 04/06 2325 97.9 74 20 98/70 93 Room Air 04/06 1739 97.7 04/06 1626 97.7 77 20 96/70 93 04/06 1607 97.9 Intake & Output 04/07 1600 04/07 0800 04/07 0000 Intake Total 892 502 9937 Output Total 900 1400 1000 Balance -660 -480 80 Intake, IV 800 600 Intake, Oral 240 120 480 Number 0 Bowel Movements Output, Urine 900 1400 1000 Physical Exam General Appearance: Alert, Oriented X3, Cooperative, No Acute Distress Skin: No Rashes, No Breakdown HEENT: Atraumatic, PERRLA, EOMI Neck: Supple, No JVD Cardiovascular: Regular Rate, Normal S1, Normal S2 Lungs: Clear to Auscultation Abdomen: Soft, No Tenderness Neurological: Normal Speech Extremities: No Clubbing, No Cyanosis, No Edema Assessment/Plan Assessment: Patient is a 67-year-old male with a past medical history of CAD status post CABG in 1998, history of PCI of his RCA and left subclavian artery, peripheral vascular disease,1st-degree AV block, Polymyalgia rheumatica,Benign prostatic hypertrophy, left femoral pseudoaneurysm, femoral bypass,Dyslipidemia,back surgery(meniscus surgery for L5-S1 degenerative disc disease) obstructive sleep apnea, myotonic dystrophy, posttraumatic stress disorder, rotator cuff surgery with continued with chief complaints of generalized body ache, runny nose since last 3-4 days, and an episode of fall in morning. Vital signs-temperature 97.9, pulse 72, respiratory rate 20, blood pressure 118/ 60, SPO2 93% on room air Problem list - Influenza A right supraorbital scalp contusion Hypotension, probably secondary to dehydration or diarrhea CAD status post CABG in 1998, history of PCI of his RCA and left subclavian artery, peripheral vascular disease, 1st-degree AV block, Polymyalgia rheumatica on prednisone, Benign prostatic hypertrophy, left femoral pseudoaneurysm, femoral bypass, Hypertension Hyperlipidemia back surgery(meniscus surgery for L5-S1 degenerative disc disease) myotonic dystrophy, posttraumatic stress disorder, rotator cuff surgery NOTE -According to the patient, he was given 80 mgs of atorvastatin, 3-4 years ago and later he started having generalized body ache and muscle weakness. Doctors at [place] were not able to accurately find the cause, thats why they did the muscle biopsy and found that the he is having myotonic dystrophy. As atorvastatin exacerbate his symptoms, he doesn't want to take it again. Plan - * We will discharge him today * We also make patient aware that, today weather is too bad, if he wants we can discharge him tmr, but he was saying that one of his brother/cousin will be here to pick him. * Advised to have the echocardiogram as an outpatient. * we advised to make a log of BP and take it to PCP/ sandblasting supervisor. * We will continue his aspirin and clopidogrel * The flu test was positive,for influenza A, as he had multiple medical problems presented with the shock and his age is more than 66. although, he is out of the time period of 48hrs, I would still think for tamiflu, although I will discuss with attending and follow his rcms. * We advised to take droplet precautions for total 7 days, from onset of his symptoms. * DVT prophylaxis-heparin/ALP S * CODE STATUS-full code Problem List: 1. Syncope 2. Scalp contusion 3. Influenza A Pain Ratin Pain Location: none Pain Goal: Remain pain free Pain Plan: mild Tomorrow's Labs & Rationales: none DVT/Prophylaxis: mechanical, pharmacological
[2016-04-07 08:11] LABS: ABSOLUTE BASOPHIL COUNT 0 /CUMM (0.0-0.2); ABSOLUTE EOSINOPHIL COUNT 0.2 /CUMM (0.0-0.7); ABSOLUTE GRANULOCYTE CT 2.4 /CUMM (1.4-6.5); ABSOLUTE MONOCYTE COUNT 0.6 /CUMM (0.10-0.60); BASOPHIL % 0.6 % (0.0-2.0); EOSINOPHIL % 5.3 % (0-5); GRANULOCYTE % 56.8 % (42.2-75.2); HEMATOCRIT 47.1 % (42-52); MEAN CORPUSCULAR HGB 31.6 PG (27.0-31.0); MEAN CORPUSCULAR HGB CONC 33.5 G/DL (33.0-37.0); MEAN CORPUSCULAR VOLUME 94.5 FL (80.0-94.0); MEAN PLATELET VOLUME 8.4 FL (7.4-10.4); PLATELET COUNT 105 /CUMM (130-400); RBC DISTRIBUTION WIDTH 14.4 % (11.5-14.5); RED BLOOD CELL CT 4.98 /CUMM (4.70-6.10); WHITE BLOOD CELL COUNT 4.3 /CUMM (4.8-10.8)
[2016-04-07 09:28] VITALS: BP 118/60
--- NOTE | 2016-04-07 13:59 | Discharge Summary ---
Visit Information Visit Dates Admission Date: 04/05/16 Discharge Date: 04/07/2016 Hospital Course Course Attending Physician: DAYANNA SHEN MD Primary Care Physician: Jennifer Molina [facility] Course: Patient is a 67-year-old male with a past medical history of CAD status post CABG in 1998, history of PCI of his RCA and left subclavian artery, peripheral vascular disease,1st-degree AV block, Polymyalgia rheumatica,Benign prostatic hypertrophy, left femoral pseudoaneurysm, femoral bypass,Dyslipidemia,back surgery(meniscus surgery for L5-S1 degenerative disc disease) obstructive sleep apnea, myotonic dystrophy, posttraumatic stress disorder, rotator cuff surgery presented with chief complaints of generalized body ache, runny nose since last 3-4 days, and an episode of fall. Vital signs at the time of admission -Tem-101.0, P-52, RR-20, BP-64/40 Pertinent labs -hemoglobin 17.4, hematocrit 50.9 Influenza A - We kept the patient on droplet precautions, and maintain his hydration by giving IV fluids. We didnt give the Tamiflu because he was out of the window period of 48 hours. Patient felt much better after 24 hours, so we discharged with advised to follow up with PCP and have 7 days of droplet precaution from onset of his symptoms. Hypotension secondary to dehydration, probably secondary to diarrhea - We kept the patient on telemetry observation as the patient presented with a Hx of fall and having history of multiple cardiac problems and on examination had low BP. We maintain his blood pressure by giving IV fluids and holding his antihypertensives.We also took cardiology consult and followed their recommendations. At the time of discharge, his blood pressure was 118/60. We restarted him on metoprolol and kept hold on lisinopril.We advised to monitor the blood pressure daily and make a log, and show it to PCP/ceo & founder for further management of the blood pressure. Right supraorbital scalp contusion - After fall at home, patient had hematoma on the right supraorbital scalp area. We did CT head and cervical spine, which showed no any acute bleed or territorial infarcts, calvarial fractures and fractures or subluxation in the cervical spine, although there was right suborbital scalp contusion. We treated it conservatively,by giving symptomatic management. Allergies: Coded Allergies: NO KNOWN ALLERGIES (06/24/11) Pertinent Lab Results: CT head and cervical spine - * No any acute bleed or territorial infarcts, no acute calvarial fractures, no acute fractures or subluxation in the cervical spine, * right suborbital scalp contusion was seen, diffuse volume loss, probably secondary to chronic vascular changes,multilevel degenerative disease in cervical spin Chest Xray - s/p Median sternostomy for CABG, sclera stent left superior mediastinum, pacemaker lead in the right atrium and the right ventricle and good position, no pulmonary vascular congestion or any acute cardiopulmonary changes. Disposition Summary Disposition Principal Diagnosis: Influenza A right supraorbital scalp contusion Hypotension, probably secondary to dehydration or diarrhea Additional Diagnosis: CAD status post CABG in 1998, history of PCI of his RCA and left subclavian artery, peripheral vascular disease, 1st-degree AV block, Polymyalgia rheumatica on prednisone, Benign prostatic hypertrophy, left femoral pseudoaneurysm, femoral bypass, Hypertension Hyperlipidemia back surgery(meniscus surgery for L5-S1 degenerative disc disease) myotonic dystrophy, posttraumatic stress disorder, rotator cuff surger Discharge Disposition: home or self care Discharge Instructions General Discharge Information Code Status: Full Code Patient's Diet: Heart Helathy diet Patient's Activity: as tolerated Follow-Up Instructions/Appts: Take all fall precaution Please follow-up with your PCP within a week of discharge Please follow-up with your ceo & founder within a week of discharge We are holding and not starting your lisinorpil We will provide you with BP kit, if BP is high, please restart your BP medication. Please follow up with your PCP within one week of discharge and discuss management of blood pressure medications. Medications at Discharge Discharge Medications: Stop taking the following medications: Lisinopril (Lisinopril) 2.5 MG TABLET ORAL DAILY Continue taking these medications: Metoprolol Succinate (Metoprolol Succinate) 25 MG TAB 1 Tablet ORAL DAILY Comments: Last Taken: 04/06 Time: 10AM Ezetimibe (Zetia) 10 MG TABLET 1 Tablet ORAL DAILY Comments: Last Taken: 04/07 Time: 9AM Clopidogrel Bisulfate (Clopidogrel) 75 MG TABLET 1 Tablet ORAL DAILY Comments: Last Taken: 04/07 Time: 9AM Tamsulosin HCl (Flomax) 0.4 MG CAP.ER.24H 1 Capsule ORAL DAILY Comments: Last Taken: 04/07 Time: 9AM Multivitamin (Multi-Day Vitamins) 1 EACH TABLET 1 Tablet ORAL DAILY Comments: Last Taken: NOT GIVEN IN HOSPITAL Time: Aspirin (Ecotrin*) 81 MG TABLET.DR 1 Tablet ORAL DAILY Comments: Last Taken: 04/06 Time: 3PM Niacinamide (Niacin) (Unknown Strength) TABLET Unknown Dose ORAL DAILY Comments: Last Taken: 04/07 Time: 8AM Calcium Carbonate (Calcium) (Unknown Strength) TABLET Unknown Dose ORAL DAILY Comments: Last Taken: NOT GIVEN IN HOSPITAL Time: Cholecalciferol (Vitamin D3) (Vitamin D) (Unknown Strength) TABLET Unknown Dose ORAL DAILY Comments: Last Taken: NOT GIVEN IN HOSPITAL Time: Acetaminophen (Acetaminophen) (Unknown Strength) TABLET Unknown Dose ORAL as needed for PAIN Comments: Last Taken: 04/05 Time: 6PM Dm/P-Ephed/Acetaminoph/Doxylam (Nathalie-Starks Plus Cold+Flu Pkt) (Unknown Strength) POWD.PACK Unknown Dose ORAL As Directed Comments: Last Taken: NOT GIVEN IN HOSPITAL Time: Copies To: SHERRIE BURTON APRN, MD PhD,TULIO Mcadams MD Review Statement Documenting Attending: AC CHAU,DAYANNA
--- NOTE | 2016-04-07 14:06 | PN- Cardiology ---
Subjective Subjective: * Patient reports ambulating without any chest discomfort, shortness of breath, lightheadedness or palpitations. * Sinus rhythm with occasional unifocal ventricular ectopy Objective Vital Signs and I&Os Vital Signs Date Time Temp Pulse Resp B/P Pulse O2 O2 Flow FiO2 Ox Delivery Rate 04/07 927 72 118/60 04/06 2351 97.9 04/06 2325 97.9 74 20 98/70 93 Room Air 04/06 1739 97.7 04/06 1626 97.7 77 20 96/70 93 04/06 1607 97.9 Intake & Output 04/07 1600 04/07 0800 04/07 0000 04/06 1600 04/06 0000 Intake Total 598 539 8166 1340 1080 1080 Output Total 900 1400 1000 450 725 350 Balance -660 -480 80 890 355 730 Intake, IV 800 600 700 600 600 Intake, Oral 240 120 480 640 480 480 Number 0 0 Bowel Movements Output, Urine 900 1400 1000 450 725 350 Patient 165 lb Weight Physical Exam: General: WD/ WN male in NAD; alert and oriented x 2, decreased memory Neck: no JVD. no carotid bruit Heart : RRR w/o mumur Lungs: clear bilaterally Extremties: no edema Assessment/Plan Assessment/Plan * This patient feels improved and his current blood pressure is in an acceptable range at 118 systolic. I would stop lisinopril and continue Metoprolol as previously prescribed. He has a pacemaker to prevent bradycardia. Continue telemetry? Yes
--- NOTE | 2016-04-08 08:25 | ECHOCARDIOGRAM REPORT ---
ASHLIE CHEUNG Age: 70 : 1945 Gender: M Exam Date: 04/07/2016 09:44 Exam Location: [address] Ht (in): 68 Wt (lb): 165 BSA: 1.90 BP: 90 / 58 Ordering Physician: EDUIN MORILLO MD Referring Physician: EDUIN MORILLO MD Technologist: Nain Sifuentes [facility] Room Number: 187-1 Indications: LIGHTHEADEDNESS Rhythm: Sinus Technical Quality: fair/contrast used FINDINGS Left Ventricle Normal left ventricular size and wall thickness. Mild to moderately decreased systolic function with no obvious regional wall motion abnormalities. Distolic filling pattern is consistent with impaired LV relaxation. The ejection fraction is visually estimated at 35- 40%. Right Ventricle The right ventricle is normal in size and function. Right Atrium The right atrium is normal in size. Left Atrium The left atrium is normal in size. The interatrial septum is intact. Mitral Valve The mitral valve is normal in structure and function. There is trace to mild mitral regurgitation. Aortic Valve Structurally normal aortic valve without significant sclerosis or stenosis. There is no aortic regurgitation. Tricuspid Valve The tricuspid valve is normal in structure and function. There is no tricuspid regurgitation. Pulmonic Valve Structurally normal pulmonic valve. There is no pulmonic regurgitation. Pericardium Normal pericardium without effusion. No pleural effusion. Great Vessels Normal aortic root dimension. The aortic arch and great vessels are well seen and are normal. CONCLUSIONS 1. Moderately decreased EF of 35-40% with impaired LV relaxation. 2. Trace to mild mitral regurgitation. [place] M.D. (Electronically Signed) Final Date: 08 April 2016 08:24 MEASUREMENTS (Male / Female) Normal Values 2D ECHO LV Diastolic Diameter PLAX 4.8 cm 4.2 - 5.9 / 3.9 - 5.3 cm LV Systolic Diameter PLAX 4.3 cm 2.1 - 4.0 cm LV Fractional Shortening PLAX 10.4 % 25 - 46 % LV Ejection Fraction 2D Teich 22.7 % IVS Diastolic Thickness 1.0 cm LVPW Diastolic Thickness 1.1 cm LV Relative Wall Thickness 0.4 RV Internal Dim ED PLAX 3.3 cm 1.9 - 3.8 cm LVOT Diameter 1.8 cm Aortic Root Diameter 3.3 cm LA Systolic Diameter LX 3.7 cm 3.0 - 4.0 / 2.7 - 3.8 cm LA Volume 39.0 cm 18 - 58 / 22 - 52 cm Ascending Aorta Diameter 3.0 cm DOPPLER AV Peak Velocity 142.0 cm/s AV Peak Gradient 8.1 mmHg AV Mean Velocity 86.4 cm/s AV Mean Gradient 4.0 mmHg AV Velocity Time Integral 30.7 cm LVOT Peak Velocity 79.0 cm/s LVOT Peak Gradient 2.5 mmHg LVOT Mean Velocity 47.7 cm/s LVOT Mean Gradient 1.0 mmHg LVOT Velocity Time Integral 17.2 cm LVOT Stroke Volume 43.8 cm AV Area Cont Eq vti 1.4 cm AV Area Cont Eq pk 1.4 cm MV Peak Velocity 126.0 cm/s MV Peak Gradient 6.4 mmHg MV Mean Velocity 75.2 cm/s MV Mean Gradient 3.0 mmHg Mitral E Point Velocity 86.4 cm/s Mitral A Point Velocity 121.0 cm/s Mitral E to A Ratio 0.7 MV PHT Velocity 99.5 cm/s MV Deceleration [place] 286.0 cm/s MV Pressure Half Time 104.4 ms MV Area PHT 2.1 cm MV Deceleration Time 204.0 ms PV Peak Velocity 88.2 cm/s PV Peak Gradient 3.1 mmHg PV Mean Velocity 65.9 cm/s PV Mean Gradient 2.0 mmHg PV Velocity Time Integral 20.3 cm LV E' Lateral Velocity 7.9 cm/s Mitral E to LV E' Lateral Ratio 10.9 LV E' Septal Velocity 5.3 cm/s Mitral E to LV E' Septal Ratio 16.4
== END 2016-04-07 16:45 ==
LOC: CANRESERV → ENRESERVDT → ENRESERVTM → ERH 09:58 → 1NO 14:04 → ERHI 14:04 → ENPENDDIS 14:04 → EDBEDREQ 14:29 → 1NO 17:06
PROVIDERS: Internal Medicine; Physician Assistant; ADMIT Internal Medicine
DX: J09.X2 Influenza due to identified novel influenza A virus with other respiratory manifestations (principal); S00.03XA Contusion of scalp, initial encounter; I95.9 Hypotension, unspecified; I25.810 Atherosclerosis of coronary artery bypass graft(s) without angina pectoris; I73.9 Peripheral vascular disease, unspecified; I44.0 Atrioventricular block, first degree; M35.3 Polymyalgia rheumatica; N40.0 Benign prostatic hyperplasia without lower urinary tract symptoms; I10 Essential (primary) hypertension; E78.5 Hyperlipidemia, unspecified; G71.11 Myotonic muscular dystrophy; F43.10 Post-traumatic stress disorder, unspecified; E86.0 Dehydration; Y93.89 Activity, other specified; Y92.000 Kitchen of unspecified non-institutional (private) residence as the place of occurrence of the external cause; W17.89XA Other fall from one level to another, initial encounter
CPT/HCPCS: 2000; 36415; 81003; 82436; 87040; 87804; 87804-59; 93005; 93010; 96360; 96361; 97116-GP; 97161-GP; 97530-GP; C8929; G0378; G8978-GP; G8979-GP; G8980-GP; J3490; Q9957

== ENCOUNTER 2016-08-26 17:02 | Inpatient (IN) | payer OTHER ==
[~2016-08-26] VITALS: Ht 172.7 cm; Wt 87.6 kg
[~2016-08-26 17:02] MED LIST changes: +ACETAMINOPHEN500 M4 PO; +ALKA-SELTZER P1 EA10 PO; +ASPIRIN EC81 M1 PO; +CALCIUM600 M2 PO; +CLOPIDOGREL75 M1 PO; +FLOMAX0.4 M1 PO; +LISINOPRIL2.5 M1 PO; +METOPROLOL SUCC25 M1 PO; +MULTI-DAY VITA1 EACH PO; +NIACIN500 M6 PO; +VITAMIN D2000 UNI1 PO; +ZETIA10 M1 PO
--- NOTE | 2016-08-26 17:07 | NUR ---
O2 SAT 94 RA AT MANUFACTURING QUALITY MANAGER
--- NOTE | 2016-08-26 17:09 | NUR ---
RECEIVED 70 YO MALE C/O DIZZINESS AND WEAKNESS, STARTED THIS AM ABOUT 11 AM. PT WAS INCONTINENT OF URINE AFTER WAKING UP FROM A NAP. PT HAS HX OF ISCEMIC HEART DISEASE. NO C/O CHEST PAIN OR PRESSURE
--- NOTE | 2016-08-26 17:10 | NUR ---
PT WAS ASSISTED OUT OF CAR BY MULTIPLE STAFF MEMBERS SECONDARY TO WEAKNESS AND DIZZINESS.
--- NOTE | 2016-08-26 17:39 | ED DYSPNEA/ASTHMA COMPLAINT ---
History of Present Illness General Chief Complaint: Dyspnea (COPD, CHF, Other) Stated Complaint: SOB Source: patient, family Exam Limitations: no limitations Vital Signs & Intake/Output Vital Signs & Intake/Output Vital Signs Date Time Temp Pulse Resp B/P B/P Pulse O2 O2 Flow FiO2 Mean Ox Delivery Rate 08/30 0921 75 112/70 08/30 0640 98.4 63 20 112/70 92 Room Air 08/29 2127 78 98/62 ED Intake and Output 08/30 0000 08/29 1200 Intake Total 920 Output Total 1100 600 Balance -180 -600 Intake, Oral 920 Output, Urine 1100 600 Triage Note: RECEIVED 70 YO MALE C/O DIZZINESS AND WEAKNESS, STARTED THIS AM ABOUT 11 AM. PT WAS INCONTINENT OF URINE AFTER WAKING UP FROM A NAP. PT HAS HX OF ISCEMIC HEART DISEASE. NO C/O CHEST PAIN OR PRESSURE Triage Nurses Notes Reviewed? 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 Patient does smoke and has a chronic nonproductive cough no changes. Patient complains of fever and chills Denies any chest pain arm pain jaw pain nausea vomiting hemoptysis leg swelling headache blurred vision neck pain neck stiffness shortness of breath. (CAROLANN CARRILLO,MOISES) Allergies Coded Allergies: NO KNOWN ALLERGIES (UNKNOWN 08/29/16) Reconcile Medications Amoxicillin/Potassium Clav (Augmentin 875-125 Tablet) 875 MG-125 MG TABLET 1 TAB PO BID cellulitis Aspirin (Ecotrin*) 81 MG TABLET. 1 TAB PO DAILY HEART/BLOOD (Reported) Calcium Carbonate (Calcium) (Unknown Strength) TABLET (Unknown Dose) PO DAILY SUPPLEMENT (Reported) Cholecalciferol (Vitamin D3) (Vitamin D) (Unknown Strength) TABLET (Unknown Dose) PO DAILY SUPPLEMENT (Reported) Clopidogrel Bisulfate (Clopidogrel) 75 MG TABLET 1 TAB PO DAILY BLOOD THINNER Colestipol HCl (Colestid) 1 GRAM TABLET 4 TAB PO BID CHOLESTEROL (Reported) LAST PRESCRIBED IN 2014 Dm/P-Ephed/Acetaminoph/Doxylam (Nathalie-[place] Plus Cold+Flu Pkt) (Unknown Strength) POWD.PACK (Unknown Dose) PO AD COLD SYMPTOMS (Reported) Ezetimibe (Zetia) 10 MG TABLET 1 TAB PO DAILY CHOLESTEROL (Reported) Lisinopril 2.5 MG TABLET 1 TAB PO DAILY BP (Reported) Metoprolol Tartrate 25 MG TABLET 0.5 TAB PO BID blood pressure Multivitamin (Multi-Day Vitamins) 1 EACH TABLET 1 TAB PO DAILY SUPPLEMENT ( Reported) Niacinamide (Niacin) (Unknown Strength) TABLET 500 MG PO DAILY SUPPLEMENT ( Reported) Primidone (Mysoline) 50 MG TABLET 0.5 TAB PO DAILY BP (Reported) Tamsulosin HCl (Flomax) 0.4 MG CAP.ER.24H 1 CAP PO DAILY PROSTATE (Reported) (ANYA CRUM DO) Past History Travel History Traveled to [place] past 21 day No Medical History Any Pertinent Medical History? see below for history Neurological: NONE EENT: NONE Cardiovascular: myocardial infarction Respiratory: NONE Gastrointestinal: NONE Hepatic: NONE Renal: NONE Musculoskeletal: NONE Psychiatric: NONE Endocrine: NONE Blood Disorders: NONE Cancer(s): NONE Other Medical Hx: Dyslipidemia, a femoral bypass 20 years ago, coronary artery disease status post CABG x4, coronary artery disease status post anterior wall [place], status post thrombolytics, back surgery, meniscus surgery for L5-S1 degenerative disc disease, recent angioplasty to the right coronary artery and left subclavian, obstructive sleep apnea, polymyalgia rheumatica, myotonic dystrophy, elevated PSA, posttraumatic stress disorder, rotator cuff surgery. History of MRSA: No History of VRE: No History of CDIFF: No Influenza Vaccine: 02/27/06 Surgical History Surgical History: cardiac stents, pacemaker Psychosocial History Who do you live with Spouse What is your primary language Belarusian Tobacco Use: Current Daily Use Daily Tobacco Use Amount/Type: => 5 Cigarettes daily Family History Family History, If Any: MOTHER (HTN). Hx Contributory? No (MOISES ZAMAN) Review of Systems Review of Systems Constitutional: Reports: see HPI, chills, fever. EENTM: Reports: no symptoms. Respiratory: Reports: see HPI, cough. Cardiovascular: Reports: see HPI. Denies: chest pain. GI: Reports: no symptoms. Genitourinary: Reports: no symptoms. Musculoskeletal: Reports: no symptoms. Skin: Reports: no symptoms. Neurological/Psychological: Reports: see HPI. Denies: headache. Hematologic/Endocrine: Reports: no symptoms. Immunologic/Allergic: Reports: no symptoms. All Other Systems: Reviewed and Negative (MOISES ZAMAN) Physical Exam Physical Exam General Appearance: no apparent distress, alert, comfortable Head: atraumatic Eyes: Bilateral: normal appearance, PERRL, EOMI. Ears, Nose, Throat: normal pharynx, normal ENT inspection, hearing grossly normal Neck: normal inspection, supple, full range of motion, no midline tenderness Respiratory: chest non-tender, crackles Cardiovascular: tachycardia Peripheral Pulses: 2+ radial (R), 2+ radial (L) Gastrointestinal: normal bowel sounds, soft, non-tender Extremities: normal inspection, normal capillary refill, normal range of motion, no edema Skin: intact, normal color, warm/dry Lymphatic: no anterior cervical maria del rosario Core Measures ACS in differential dx? No Severe Sepsis Present: Yes BC x2: Yes Lactic Acid x2: Yes IV ABX Broad Spectrum: Yes NS/LR Started: Yes Septic Shock Present: Yes BC x2: Yes Lactic Acid: Yes IV ABX Broad Spectrum: Yes Focused Exam Completed: Yes NS/LR 30ml/kg w/in 3hrs: Yes IV Vasopressors started: No (MOISES ZAMAN) Progress Differential Diagnosis: asthma, AMI, bronchitis, costochondritis, CHF, COPD, musculoskeletal pain, pericarditis, pulmonary embolism, pneumonia, pneumothorax, unstable angina Plan of Care: Orders Procedure Date/time Status Discharge Patient 08/30 UNK Active MISSING MEDICATION FORM 08/30 UNK Active Laboratory Tests 08/30/16 0707: Anion Gap 5, Estimated GFR > 60, BUN/Creatinine Ratio 24.3, CBC w Diff NO MAN DIFF REQ, RBC 5.06, MCV 95.1 H, MCH 32.0 H, RDW 13.9, MPV 8.3, Gran % 61.3, Lymphocytes % 18.7 L, Monocytes % 9.6 H, Eosinophils % 10.0 H, Basophils % 0.4, Absolute Granulocytes 3.7, Absolute Lymphocytes 1.1 L, Absolute Monocytes 0.6, Absolute Eosinophils 0.6, Absolute Basophils 0, PUBS MCHC 33.6 Patient on initial examination is noted to be febrile and weak over no apparent distress. Patient does have crackles on examination patient was treated for concerns of community-acquired pneumonia. Patient's fever is improving. Patient was administered MULTIPLE normal saline bolus Prior to patient's being admitted patient's blood pressure then became 70/50 patient was administered 2 peripheral lines and was fluid resuscitation did not improve patient's hypotension. Patient then became concerned of severe sepsis and which a central line placed Blood sputum and urine cultures are pending (CAROLANN CARRILLO,MOISES) Diagnostic Imaging: Viewed by Me: Radiology Read. Radiology Impression: SEE COMMENTS Initial ED EKG: normal p-waves, normal QRS complex, normal sinus rhythm, SINUS TACHYCARDIA 112 BPM Comments: PATIENT: ASHLIE CHEUNG PRESENT AGE: 70 PATIENT ACCOUNT NO: [id number] : 46 LOCATION: [facility] [place] ORDERING PHYSICIAN: MOISES CARRILLO SERVICE DATE: 08/26/16 EXAM TYPE: RAD - XRY-CHEST XRAY, PA AND LATERAL EXAMINATION: XR CHEST CLINICAL INFORMATION: Cough, fever COMPARISON: Chest x-ray 07/21/2013 TECHNIQUE: 2 views of the chest were obtained. FINDINGS: Status post median sternotomy. Heart size enlarged. Pacemaker lead in right atrium and right ventricle. Lung volume low. There is mild prominence of the central vessels with prominence of the interstitial lung markings. Lung markings are accentuated by the low inspiratory effort. Underlying mild pulmonary vascular congestion not excluded. No focal dense consolidation or pleural effusion. IMPRESSION: 1. Low inspiratory effort with mild prominence of central vessels. The increased lung markings are accentuated by the low inspiration. 2. No focal consolidation. DICTATED BY: AMALIA GORDON MD DATE/TIME DICTATED:08/26/161829 PATIENT: ASHILE CHEUNG PRESENT AGE: 70 PATIENT ACCOUNT NO: [id number] : 46 LOCATION: [facility] ORDERING PHYSICIAN: HERMELINDO SWIFT MD SERVICE DATE: 08/26/16 EXAM TYPE: CAT - CTA CHEST Addendum: Right IJ catheter has been placed and the catheter tip is in the superior vena cava at the cavoatrial junction. Addendum Signed by: AMALIA GORDON MD 08/26/16 7677 EXAMINATION: CT ANGIOGRAM CHEST, PE STUDY CLINICAL INFORMATION: Shortness of breath. Weakness. Hypertension. COMPARISON: Chest x-ray 08/26/2016, 07/03/2016, 07/21/2013 TECHNIQUE: A noncontrast localizer was performed, followed by the administration of 115 mL Optiray [address] of the chest was then performed. Coronal and sagittal reformatted and 3-D technique MIP images of the chest were completed at the CT scanner and reviewed on the PACS workstation. No adverse effects were reported. DLP: 525.34 mGy-cm. FINDINGS: VASCULAR: The main pulmonary artery, secondary and tertiary branches of the pulmonary artery are normally opacified with no evidence of pulmonary embolism. There is extensive atherosclerotic vascular wall calcifications of the aorta and great vessels. Vascular calcification at the origin of great vessels. Vascular stent at the origin of the left brachiocephalic artery. Vascular calcification of coronary arteries. Status post median sternotomy for CABG. Pacemaker leads in right atrium and right ventricle. MEDIASTINUM: No mediastinal mass. No significant lymphadenopathy. There is no pericardial effusion. LUNGS: Coarse reticular opacities at dependent lung of linear atelectasis. FLUID: There is no pericardial effusion. There is no pleural effusion. AXILLA: No significant lymphadenopathy. UPPER ABDOMEN: Several hepatic cysts seen in right and left lobe of liver. Adrenal glands are normal. SKELETAL: Status post median sternotomy. Multilevel degenerative change of the spine with endplate spurs of the vertebrae. IMPRESSION: No acute abnormality. No evidence of pulmonary embolism. DICTATED BY: AMALIA GORDON MD DATE/TIME DICTATED:08/26/162315 PREMIUM CANCELLATION CLERK:QUETA (MOISES ZAMAN) Comments: 08/26/2016 7:39:06 PM although patient was admitted prior to sign out (and consequently patient not signed out to me), I was asked to see patient due to low blood pressure. Patient's systolic blood pressure is currently 72 systolic. I have reevaluated this patient. He was found asleep on the stretcher but aroused with gentle tactile stimuli. Although feeling weak, he denied any specific complaint at this time. When I spoke to him about his blood pressure he stated that usually runs a low blood pressure, typically in the 90s systolic range. He has normal capillary refill and warm and well-perfused extremities although peripheral pulses are weak. He is awake and alert and answers questions and is cooperative. Given his history of chronically low blood pressure does difficult to ascertain whether or not he truly meets septic shock criterion. Although his systolic blood pressure is less than 90 on a regular basis. IV fluids are being administered. We will continue to reevaluate patient periodically. 08/26/2016 8:43:13 PM central line is being placed. Patient's case discussed with the ICU house staff. 08/26/2016 10:02:48 PM patient's case discussed with Dr. Montana. Since this patient is critically ill and he has asked that I speak with Dr. Andre who will start coverage in the morning. 08/26/2016 10:30 PM patient's case discussed with Dr. Swift, including my discussion with Dr. Montana. Dr. Andre has yet to return page. Dr. swift will contact Dr. Montana. (EVON CHAU,ANYA Correa) ED Sepsis Exam Date of Focused Sepsis Exam: 08/27/16 Time of Focused Sepsis Exam: 1939 Sepsis Cardiac Exam: Tachycardia Sepsis Resp Exam: CRACKLES Sepsis Cap Refill Exam: <2 Sec Sepsis Peripheral Pulse Exam: Normal Sepsis Peripheral Pulse Location: Radial Sepsis Skin Color Exam: Flushed Skin Temp/Moisture Exam: Hot/Dry (MOISES ZAMAN) Departure Departure Disposition: STILL A PATIENT Condition: Stable Clinical Impression Primary Impression: Septic shock Secondary Impressions: Fever Referrals: ALMA BURTON APRN (PCP/Family) Departure Forms: Customer Survey General Discharge Information Admission Note Spoke With: DAX SWIFT MD Documentation of Exam: Documentation of any treatments & extenuating circumstances including Concerns Regarding Discharge (functional status, medication knowledge or non-compliance, living conditions, etc.) that warrant an admission rather than observation: [ Patient will be admitted to the ICU for concerns of septic shock at this time is unclear patient's etiology of SEPTIC SHOCK however initially patient had concerns of pneumonia which IV antibiotics were administered. Patient requires pressors, IV antibiotics, IV fluid resuscitation and further evaluation of patient's critical findings.] (MOISES ZAMAN) Departure Prescriptions: Current Visit Scripts Metoprolol Tartrate 0.5 TAB PO BID 30 Days Amoxicillin/Potassium Clav (Augmentin 875-125 Tablet) 1 TAB PO BID #7 TAB Clopidogrel Bisulfate (Clopidogrel) 1 TAB PO DAILY 30 Days Comments 08/26/16 7:15 pm I was alerted that the patient's blood pressure was low. He has an elevated lactic acid. Blood cultures have been drawn. 30 mL per KG of IV fluids are being given. He is awake alert and oriented 3. He has rales at the right base . He will be reevaluated after the fluid bolus. The patient was signed out to Dr. Solo, who will reevaluate the patient after the fluid bolus. PA/CLERICAL ADMINISTRATOR Co-Sign Statement Statement: ED Attending supervision documentation- [X] I saw and evaluated the patient. I have also reviewed all the pertinent lab results and diagnostic results. I agree with the findings and the plan of care as documented in the PA's/CLERICAL ADMINISTRATOR's documentation. [] I have reviewed the ED Record and agree with the PA's/CLERICAL ADMINISTRATOR's documentation. [] Additions or exceptions (if any) to the PAs/CLERICAL ADMINISTRATOR's note and plan are summarized below: [] (ANYA CRUM DO) Procedures Central Line Central Line Lumen: triple Central Line Procedure: Yes: bentadine prep?, sterile drapes applied, sterile dressing applied. Central Line Position: internal jugular (R) Anesthesia: lidocaine 1% CC's of Anesthesia: 5 Complications: none Central Line Post Position: sutured, good blood return, CONFIRMED WITH CT CHEST (MOISES ZAMAN) Critical Care Note Critical Care Note Critical Care Time: 75-104 min (MOISES ZAMAN) (Levophed Drip) 0158 Sodium Chloride 250 ML (Normal Saline 0.9%) Acetaminophen 650 MG Q6P PRN 08/26 2100 AC (Tylenol) Acetaminophen 1,000 MG Q6P PRN 08/26 2100 AC (Ofirmev) Morphine Sulfate 0.5 MG Q4P PRN 08/26 2100 AC (Morphine) Acetaminophen 975 MG ONCE ONE 08/26 1745 CAN (Tylenol) 08/26 1746 Laboratory Tests 08/27/16 0440: Anion Gap 7, Estimated GFR > 60, Glucose 114 H, Lactic Acid 0.7, Calcium 8.1 L , Phosphorus 2.5, Magnesium 1.8, Total Bilirubin 0.6, AST 41, ALT 61, Troponin I 0.11 *H, Albumin 2.8 L, CBC w Diff MAN DIFF ORDERED, RBC 4.86, MCV 96.1 H, MCH 32.2 H, RDW 14.0, MPV 8.5, Gran % 89.0 H, Lymphocytes % 4.9 L, Monocytes % 6.0, Eosinophils % 0, Basophils % 0.1, Absolute Granulocytes 15.7 H, Segmented Neutrophils 85 H, Band Neutrophils 5, Absolute Lymphocytes 0.9 L, Lymphocytes 2 L, Monocytes 8, Absolute Monocytes 1.1 H, Absolute Eosinophils 0, Absolute Basophils 0, Platelet Estimate ADEQUATE, Polychromasia 1+, Poikilocytosis 1+, Ovalocytes 1+, PUBS MCHC 33.5, Fld Total RBCs Counted 100 08/26/16 2349: Troponin I 0.11 *H 08/26/16 2255: pH 7.38, pCO2 30 L, pO2 74 L, HCO3 17 L, ABG O2 Sat (Measured) 93.0 L, Carboxyhemoglobin 2.8, O2 Concentration % 2L, Temperature 98.5, O2 Delivery Method NC, Phlebotomy Draw Site RIGHT BRACHIAL 08/26/162009: Lactic Acid 1.0 08/26/16 1755: Urine Color YEL, Urine Clarity CLEAR, Urine pH 6.5, Ur Specific [place] 1.010, Urine Protein NEG, Urine Ketones NEG, Urine Nitrite NEG, Urine Bilirubin NEG, Urine Urobilinogen 0.2, Ur Leukocyte Esterase SMALL H, Ur Microscopic SEDIMENT EXAMINED, Urine RBC RARE, Urine WBC 1-3 H, Ur Epithelial Cells OCCAS, Urine Hemoglobin NEG, Urine Glucose NEG 08/26/16 1730: Anion Gap 9, Estimated GFR > 60, BUN/Creatinine Ratio 34.3 H, Glucose 147 H, Lactic Acid 2.6 H, Calcium 10.1, Total Bilirubin 0.9, AST 31, ALT 49, Alkaline Phosphatase 69, Troponin I 0.04, Total Protein 6.5, Albumin 3.8, Globulin 2.7, Albumin/Globulin Ratio 1.4, CBC w Diff MAN DIFF ORDERED, RBC 5.64, MCV 95.4 H, MCH 32.0 H, RDW 14.1, MPV 8.2, Gran % 92.1 H, Lymphocytes % 2.3 L, Monocytes % 5.2, Eosinophils % 0.3, Basophils % 0.1, Absolute Granulocytes 13.3 H, Segmented Neutrophils 82 H, Band Neutrophils 6 H, Absolute Lymphocytes 0.3 L, Lymphocytes 7 L, Monocytes 4, Absolute Monocytes 0.8 H, Eosinophils 1, Absolute Eosinophils 0, Absolute Basophils 0, Platelet Estimate ADEQUATE, Normochromic RBCs VERIFIED, Anisocytosis 1+, Macrocytic Cells 1+, PUBS MCHC 33.5 , Lyme Disease Antibody Pending Microbiology 08/26 2329 UPPER RESP: Surveillance Culture - RECD 08/26 2329 GI: Surveillance Culture - RECD 08/26 2053 LOWER RESP: Respiratory Culture - COLB 08/26 2053 LOWER RESP: Gram Stain - COLB 08/26 2044 URINE ROUT: Urine Culture - COLB 08/26 1801 BLOOD: Blood Culture - RECD 08/26 174 BLOOD: Blood Culture - RECD 08/26 173 LOWER RESP: Respiratory Culture - COLB 08/26 1738 LOWER RESP: Gram Stain - COLB Patient on initial examination is noted to be febrile and weak over no apparent distress. Patient does have crackles on examination patient was treated for concerns of community-acquired pneumonia. Patient's fever is improving. Patient was administered MULTIPLE normal saline bolus Prior to patient's being admitted patient's blood pressure then became 70/50 patient was administered 2 peripheral lines and was fluid resuscitation did not improve patient's hypotension. Patient then became concerned of severe sepsis and which a central line placed Blood sputum and urine cultures are pending (CAROLANN CARRILLO,MOISES) Comments: 08/26/2016 7:39:06 PM although patient was admitted prior to sign out (and consequently patient not signed out to me), I was asked to see patient due to low blood pressure. Patient's systolic blood pressure is currently 72 systolic. I have reevaluated this patient. He was found asleep on the stretcher but aroused with gentle tactile stimuli. Although feeling weak, he denied any specific complaint at this time. When I spoke to him about his blood pressure he stated that usually runs a low blood pressure, typically in the 90s systolic range. He has normal capillary refill and warm and well-perfused extremities although peripheral pulses are weak. He is awake and alert and answers questions and is cooperative. Given his history of chronically low blood pressure does difficult to ascertain whether or not he truly meets septic shock criterion. Although his systolic blood pressure is less than 90 on a regular basis. IV fluids are being administered. We will continue to reevaluate patient periodically. 08/26/2016 8:43:13 PM central line is being placed. Patient's case discussed with the ICU house staff. 08/26/2016 10:02:48 PM patient's case discussed with Dr. Montana. Since this patient is critically ill and he has asked that I speak with Dr. Andre who will start coverage in the morning. 08/26/2016 10:30 PM patient's case discussed with Dr. Swift, including my discussion with Dr. Montana. Dr. Andre has yet to return page. Dr. swift will contact Dr. Montana. (EVON CHAU,ANYA Correa) ED Sepsis Exam Date of Focused Sepsis Exam: 08/27/16 Time of Focused Sepsis Exam: 1939 Sepsis Cardiac Exam: Tachycardia Sepsis Resp Exam: CRACKLES Sepsis Cap Refill Exam: <2 Sec Sepsis Peripheral Pulse Exam: Normal Sepsis Peripheral Pulse Location: Radial Sepsis Skin Color Exam: Flushed Skin Temp/Moisture Exam: Hot/Dry (MOISES ZAMAN) Departure Departure Disposition: STILL A PATIENT Condition: Stable Clinical Impression Primary Impression: Septic shock Secondary Impressions: Fever Referrals: ALMA BURTON APRN (PCP/Family) Departure Forms: Customer Survey General Discharge Information Admission Note Spoke With: DAX SWIFT MD Documentation of Exam: Documentation of any treatments & extenuating circumstances including Concerns Regarding Discharge (functional status, medication knowledge or non-compliance, living conditions, etc.) that warrant an admission rather than observation: [ Patient will be admitted to the ICU for concerns of septic shock at this time is unclear patient's etiology of SEPTIC SHOCK however initially patient had concerns of pneumonia which IV antibiotics were administered. Patient requires pressors, IV antibiotics, IV fluid resuscitation and further evaluation of patient's critical findings.] (MOISES ZAMAN) Departure Comments 08/26/16 7:15 pm I was alerted that the patient's blood pressure was low. He has an elevated lactic acid. Blood cultures have been drawn. 30 mL per KG of IV fluids are being given. He is awake alert and oriented 3. He has rales at the right base . He will be reevaluated after the fluid bolus. The patient was signed out to Dr. Solo, who will reevaluate the patient after the fluid bolus. (ANYA CRUM DO) Procedures Central Line Central Line Lumen: triple Central Line Procedure: Yes: bentadine prep?, sterile drapes applied, sterile dressing applied. Central Line Position: internal jugular (R) Anesthesia: lidocaine 1% CC's of Anesthesia: 5 Complications: none Central Line Post Position: sutured, good blood return, CONFIRMED WITH CT CHEST (MOISES ZAMAN) Critical Care Note Critical Care Note Critical Care Time: 75-104 min (MOISES ZAMAN)
--- NOTE | 2016-08-26 17:59 | NUR ---
PT WAS WHEELED TO ROOM 21 ASSISTED ONTO STRETCHER AND PLACED ON MONITO PT DOES HAVE A LT CHEST WALL PACER LABS AND BLD CULTURES ALONG WITH URINE SENT
--- NOTE | 2016-08-26 18:02 | NUR ---
PT MEDICATED ORDERED
[2016-08-26 18:11] LABS: ABSOLUTE BASOPHIL COUNT 0 /CUMM (0.0-0.2); ABSOLUTE EOSINOPHIL COUNT 0 /CUMM (0.0-0.7); ABSOLUTE GRANULOCYTE CT 13.3 /CUMM (1.4-6.5); ABSOLUTE LYMPH COUNT 0.3 /CUMM (1.2-3.4); ABSOLUTE MONOCYTE COUNT 0.8 /CUMM (0.10-0.60); BASOPHIL % 0.1 % (0.0-2.0); EOSINOPHIL % 0.3 % (0-5); HEMATOCRIT 53.8 % (42-52); MEAN CORPUSCULAR HGB CONC 33.5 G/DL (33.0-37.0); MEAN CORPUSCULAR VOLUME 95.4 FL (80.0-94.0); MEAN PLATELET VOLUME 8.2 FL (7.4-10.4); PLATELET COUNT 143 /CUMM (130-400); RBC DISTRIBUTION WIDTH 14.1 % (11.5-14.5); RED BLOOD CELL CT 5.64 /CUMM (4.70-6.10); WHITE BLOOD CELL COUNT 14.4 /CUMM (4.8-10.8)
--- NOTE | 2016-08-26 18:13 | NUR ---
PT LEFT FOR RADIOLOGY
--- NOTE | 2016-08-26 18:20 | NUR ---
PT RECIEIVING BREATHING TX NOW
[2016-08-26 18:26] LABS: GRANULOCYTE % 92.1 % (42.2-75.2)
--- NOTE | 2016-08-26 18:36 | RADIOLOGY REPORT ---
EXAMINATION: XR CHEST CLINICAL INFORMATION: Cough, fever COMPARISON: Chest x-ray 07/21/2013 TECHNIQUE: 2 views of the chest were obtained. FINDINGS: Status post median sternotomy. Heart size enlarged. Pacemaker lead in right atrium and right ventricle. Lung volume low. There is mild prominence of the central vessels with prominence of the interstitial lung markings. Lung markings are accentuated by the low inspiratory effort. Underlying mild pulmonary vascular congestion not excluded. No focal dense consolidation or pleural effusion. IMPRESSION: 1. Low inspiratory effort with mild prominence of central vessels. The increased lung markings are accentuated by the low inspiration. 2. No focal consolidation.
--- NOTE | 2016-08-26 18:42 | NUR ---
CRITICAL TEST RESULTS [id number] ASHLIE CHEUNG 70 M TESTS AND RESULTS: LACTIC 2.6 Results received and read back by: KINSEY MANUEL Results received date and time: 08/26/16 1843 The following provider was notified of the results, and read the results back: LORENA VUONG Notified date and time: 08/26/16 at 1843
--- NOTE | 2016-08-26 18:47 | NUR ---
SECOND LITER INFUSING
--- NOTE | 2016-08-26 19:15 | NUR ---
PT MEDICATED WITH ROCEPHIN PER EMAR. ZITHROMAX INFUSING PER EMAR.
--- NOTE | 2016-08-26 19:19 | NUR ---
PT NOTED WITH A LOW B/P AND PA NOTIFIED OF FINDING AND SECOND IV ESTABLISHED AND 3RD AND 4TH LITER INFUSING
--- NOTE | 2016-08-26 19:55 | NUR ---
PT HAS 5TH LITER INFUSING AT PRESENT
--- NOTE | 2016-08-26 20:01 | NUR ---
DR. GARBER AT BEDSIDE WITH PT TO EVAL
--- NOTE | 2016-08-26 20:10 | NUR ---
2ND LATIC SENT
--- NOTE | 2016-08-26 20:31 | NUR ---
PT HAS 6TH FLUID INF[address] PER DR. JCARLOS CADET TO START IT ALTHOUGH PT HAS A JVD COS OF HIS PRESSURE
--- NOTE | 2016-08-26 20:35 | History & Physical ---
HENRY POWELL 08/26/162034: General Information and HPI MD Statement: I have seen and personally examined ASHLIE CHEUNG and documented this H&P. The patient is a 70 year old M who presented with a patient stated chief complaint of [dizziness]. Source of Information: family, old records Exam Limitations: little hard of hearing History of Present Illness: This is a 70-year-old male with past medical history of coronary artery disease status post CABG in 1998 (4 grafts with aortobifemoral bypass 15-20 years ago), RCA with 2 drug-eluting stents, status post left subclavian angioplasty performed for total subclavian occlusion, systolic and diastolic heart failure, hypertension, dyslipidemia, myotonic dystrophy, benign prostatic hyperplasia, obstructive sleep apnea on CPAP, PTSD, previous back surgeries, current active smoker, occasional alcoholic and no illicit drug abuse came in today with chief complaint of dizziness and generalized weakness. Apprently the the patient was doing all right until on the day of admission in [facility] around 11 AM he was outdoors with the children, when he felt dizzy, lightheaded and therefore came inside. His offered him some ice water, and gave him a peanut butter sandwich as he hadn't eaten anything in morning, however he felt very fatigued and therefore laid down. He tried to go upstairs for a nap, was unable to do that due to weakness therefore laid on the sofa. He also was very shaky, possibly was having chills and rigors. His measured blood pressure was noted to be 115/80 mmHg. However as he wasn't feeling good he took a nap for 2-3 hours. On waking up he noticed that he had an accident and had an episode of urinary incontinence, which was very unusual for him, he was also now more lethargic, tired, dizzy, she measured his pressure is again and now they were noted to be 90/60 mmHg and therefore they decided to come to [facility]. We talked with his at length over the phone, she had concerns about his heart, and wanted to make sure that cardiology sees the patient. He denied any chest pain, abdominal pain, any burning or dysuria, recent cold cough or congestion, any sick contacts, nausea, vomiting, diarrhea, palpitations. At baseline he has myotonic dystrophy, and has muscular weakness, he is hard to walk, however does not use any walker or cane, he has a nursing at that comes in , however recently he is walking capacity has been worsening and therefore he has been working with physical therapy. He does get up and move around but not a lot, he does drive and does groceries occasionally however more recently he has had muscular weakness. Allergies/Medications Allergies: Coded Allergies: NO KNOWN ALLERGIES (06/24/11) Home Med list Acetaminophen (Unknown Strength) TABLET (Unknown Dose) PO PRN PAIN (Reported) Aspirin (Ecotrin*) 81 MG TABLET.DR 1 TAB PO DAILY HEART/BLOOD (Reported) Calcium Carbonate (Calcium) (Unknown Strength) TABLET (Unknown Dose) PO DAILY SUPPLEMENT (Reported) Cholecalciferol (Vitamin D3) (Vitamin D) (Unknown Strength) TABLET (Unknown Dose) PO DAILY SUPPLEMENT (Reported) Clopidogrel Bisulfate (Clopidogrel) 75 MG TABLET 1 TAB PO DAILY BLOOD THINNER (Reported) Colestipol HCl (Colestid) 1 GRAM TABLET 4 TAB PO BID CHOLESTEROL (Reported) LAST PRESCRIBED IN 2014 Dm/P-Ephed/Acetaminoph/Doxylam ([place] Plus Cold+Flu Pkt) (Unknown Strength) POWD.PACK (Unknown Dose) PO AD COLD SYMPTOMS (Reported) Ezetimibe (Zetia) 10 MG TABLET 1 TAB PO DAILY CHOLESTEROL (Reported) Lisinopril 2.5 MG TABLET 1 TAB PO DAILY BP (Reported) Metoprolol Succinate 25 MG TAB 1 TAB PO DAILY BP/HEART (Reported) Multivitamin (Multi-Day Vitamins) 1 EACH TABLET 1 TAB PO DAILY SUPPLEMENT ( Reported) Niacinamide (Niacin) (Unknown Strength) TABLET 500 MG PO DAILY SUPPLEMENT ( Reported) Primidone (Mysoline) 50 MG TABLET 0.5 TAB PO DAILY BP (Reported) Tamsulosin HCl (Flomax) 0.4 MG CAP.ER.24H 1 CAP PO DAILY PROSTATE (Reported) Compliance With Home Meds: UNKNOWN Past History Travel History Traveled to [place] past 21 day No Medical History Neurological: NONE EENT: NONE Cardiovascular: myocardial infarction Respiratory: NONE Gastrointestinal: NONE Hepatic: NONE Renal: NONE Musculoskeletal: NONE Psychiatric: NONE Endocrine: NONE Blood Disorders: NONE Cancer(s): NONE Other Medical Hx: Dyslipidemia, a femoral bypass 20 years ago, coronary artery disease status post CABG x4, coronary artery disease status post anterior wall SC, status post thrombolytics, back surgery, meniscus surgery for L5-S1 degenerative disc disease, recent angioplasty to the right coronary artery and left subclavian, obstructive sleep apnea, polymyalgia rheumatica, myotonic dystrophy, elevated PSA, posttraumatic stress disorder, rotator cuff surgery. History of MRSA: No History of VRE: No History of CDIFF: No Influenza Vaccine: 02/27/06 Surgical History Surgical History: cardiac stents, pacemaker Past Family/Social History Family History Relations & Conditions if any MOTHER (HTN). Psychosocial History Where do you live? Home Who Do You Live With? spouse, child Services at Home: Nursing Primary Language: French Smoking Status: Current Everyday Smoker ETOH Use: occasional use Illicit Drug Use: denies illicit drug use Functional Ability ADLs Independent: dressing, eating, toileting, bathing. Ambulation: independent IADLs Independent: transportation, medication admin. Review of Systems Review of Systems Constitutional: Denies: chills, fever, malaise, weakness. EENTM: Denies: blurred vision, double vision, visual changes, eye pain, eye drainage. Cardiovascular: Denies: chest pain, edema, orthopena, palpitations, peripheral edema, syncope. Respiratory: Reports: cough. Denies: hemoptysis, orthopnea, short of breath, sputum production, stridor, wheezing. GI: Denies: abdominal pain, bloating, constipation, diarrhea, nausea. Genitourinary: Denies: discharge, dysuria, frequency, hematuria. Musculoskeletal: Reports: muscle pain, muscle stiffness. Denies: joint pain, joint swelling. Skin: Denies: cysts, change in skin color, change in hair/nails, dryness, erythema. Neurological/Psychological: Reports: confusion. Denies: anxiety, ataxia, cognitive dysfunction, depressed, dementia. Hematologic/Endocrine: Reports: no symptoms. Immunologic/Allergic: Reports: no symptoms. All Other Systems: Reviewed and Negative Exam & Diagnostic Data Last 24 Hrs of Vital Signs/I&O Vital Signs Date Time Temp Pulse Resp B/P B/P Pulse O2 O2 Flow FiO2 Mean Ox Delivery Rate 08/26 2149 99.7 08/261 84/0 08/27 1955 100.5 95 18 60/42 96 Nasal 2.0L Cannula 08/27 1947 100 16 66/0 94 Room Air Room Air 08/26 1910 99.7 80 16 72/56 94 Nasal 2.0L Cannula 08/26 1827 100.7 08/26 1802 95 Room Air 08/26 1758 102.4 08/26 1714 102.4 110 20 105/68 91 Room Air Physical Exam General Appearance Alert, Oriented X3, Cooperative Skin Scari nthe sternal aread midline, another midline scar in abdominal area Skin Temp/Moisture Exam: Cool/Dry Sepsis Skin Exam (color): Normal for Ethnicity HEENT Atraumatic, PERRLA, EOMI Neck Supple, JVd + Lymphatic LAd Cardiovascular Normal S1, Normal S2, tachycardia Lungs b/l crackles all over Abdomen Normal Bowel Sounds, Soft, No Tenderness, midline scar Neurological Strength at 5/5 X4 Ext, Normal Tone, Sensation Intact, Cranial Nerves 3-12 NL Extremities No Clubbing, No Cyanosis, No Edema, Normal Pulses Vascular Normal Pulses Sepsis Peripheral Pulse Location: Radial Last 24 Hrs of Labs/Stefan: Laboratory Tests 08/26/165: pH 7.38, pCO2 30 L, pO2 74 L, HCO3 17 L, ABG O2 Sat (Measured) 93.0 L, Carboxyhemoglobin 2.8, O2 Concentration % 2L, Temperature 98.5, O2 Delivery Method NC, Phlebotomy Draw Site RIGHT BRACHIAL 08/26/162009: Lactic Acid 1.0 08/26/161754: Urine Color YEL, Urine Clarity CLEAR, Urine pH 6.5, Ur Specific [place] 1.010, Urine Protein NEG, Urine Ketones NEG, Urine Nitrite NEG, Urine Bilirubin NEG, Urine Urobilinogen 0.2, Ur Leukocyte Esterase SMALL H, Ur Microscopic SEDIMENT EXAMINED, Urine RBC RARE, Urine WBC 1-3 H, Ur Epithelial Cells OCCAS, Urine Hemoglobin NEG, Urine Glucose NEG 08/26/16 1730: Anion Gap 9, Estimated GFR > 60, BUN/Creatinine Ratio 34.3 H, Glucose 147 H, Lactic Acid 2.6 H, Calcium 10.1, Total Bilirubin 0.9, AST 31, ALT 49, Alkaline Phosphatase 69, Troponin I 0.04, Total Protein 6.5, Albumin 3.8, Globulin 2.7, Albumin/Globulin Ratio 1.4, CBC w Diff MAN DIFF ORDERED, RBC 5.64, MCV 95.4 H, MCH 32.0 H, RDW 14.1, MPV 8.2, Gran % 92.1 H, Lymphocytes % 2.3 L, Monocytes % 5.2, Eosinophils % 0.3, Basophils % 0.1, Absolute Granulocytes 13.3 H, Segmented Neutrophils 82 H, Band Neutrophils 6 H, Absolute Lymphocytes 0.3 L, Lymphocytes 7 L, Monocytes 4, Absolute Monocytes 0.8 H, Eosinophils 1, Absolute Eosinophils 0, Absolute Basophils 0, Platelet Estimate ADEQUATE, Normochromic RBCs VERIFIED, Anisocytosis 1+, Macrocytic Cells 1+, PUBS MCHC 33.5 , Lyme Disease Antibody Pending Microbiology 08/26 2329 UPPER RESP: Surveillance Culture - ORD 08/26 2329 GI: Surveillance Culture - ORD 08/26 2053 LOWER RESP: Respiratory Culture - ORD 08/26 2053 LOWER RESP: Gram Stain - ORD 08/26 2044 URINE ROUT: Urine Culture - ORD 08/26 180 BLOOD: Blood Culture - RECD 08/26 1744 BLOOD: Blood Culture - RECD 08/26 1738 LOWER RESP: Respiratory Culture - ORD 08/26 1738 LOWER RESP: Gram Stain - ORD Diagnostic Data EKG Results Sinus tachycardia, rate of 112,qtc 410,FL 212 CXR Results SERVICE DATE: 08/26/16 EXAM TYPE: RAD - XRY-CHEST XRAY, PA AND LATERAL MPRESSION: 1. Low inspiratory effort with mild prominence of central vessels. The increased lung markings are accentuated by the low inspiration. 2. No focal consolidation. Other Results SERVICE DATE: 08/26/16-2049 EXAM TYPE: CAT - CTA CHEST FINDINGS: VASCULAR: The main pulmonary artery, secondary and tertiary branches of the pulmonary artery are normally opacified with no evidence of pulmonary embolism. There is extensive atherosclerotic vascular wall calcifications of the aorta and great vessels. Vascular calcification at the origin of great vessels. Vascular stent at the origin of the left brachiocephalic artery. Vascular calcification of coronary arteries. Status post median sternotomy for CABG. Pacemaker leads in right atrium and right ventricle. MEDIASTINUM: No mediastinal mass. No significant lymphadenopathy. There is no pericardial effusion. LUNGS: Coarse reticular opacities at dependent lung of linear atelectasis. FLUID: There is no pericardial effusion. There is no pleural effusion. AXILLA: No significant lymphadenopathy. UPPER ABDOMEN: Several hepatic cysts seen in right and left lobe of liver. Adrenal glands are normal. SKELETAL: Status post median sternotomy. Multilevel degenerative change of the spine with endplate spurs of the vertebrae. IMPRESSION: No acute abnormality. No evidence of pulmonary embolism. Assessment/Plan Assessment: In summary this is a 70-year-old male with past medical history of coronary artery disease status post CABG in 1998 (4 grafts with aortobifemoral bypass 15- 20 years ago), RCA with 2 drug-eluting stents, status post left subclavian angioplasty performed for total subclavian occlusion, systolic and diastolic heart failure, hypertension, dyslipidemia, myotonic dystrophy, benign prostatic hyperplasia, obstructive sleep apnea on CPAP, PTSD, previous back surgeries, current active smoker, occasional alcoholic and no illicit drug abuse came in today with chief complaint of dizziness and generalized weakness since the morning of admission. Vitals MAXIMUM TEMPERATURE of 102.4, blood pressure low at 60 over Doppler, especially rate between 80 up to 120, heart rate 90 upto 110. He was 96% saturating on 2 L. Relevant labs white count of 14.4, 6 bands, H/H of 18.0/53.8, platelets of 143, MCV 95.4, electrolytes within normal limits, sodium mildly low at 134, BUN/ creatinine 24/0.7, UA showed small leukocyte esterase with 1-3 WBCs. Lyme's titer was sent from the ER. Chest x-ray did not show any evidence of consolidation. CTA chest did not show any evidence of consolidation, vascular abnormalities or any evidence of fluid overload. Last echocardiogram in March 2016 showed ejection fraction of 35-40% with diastolic dysfunction,. Initial lactic acid was elevated at 2.6, came down to 1.0. Liver function tests were within normal limits. Initial set of troponin was 0.04, EKG did not show any acute ST-T wave changes, first degree heart block which is old, QTC within normal limit, sinus tachycardia. Blood cultures, urine cultures and sputum cultures were sent from the ER. She received one time of IV ceftriaxone and azithromycin while in the ER. She received total of 6 L of normal saline while in the ER. Pressure still continued to be low therefore she was started on Levophed. Was discussed with Dr. Andre, cardiology horizontal resaw operator, possible differential of cardiogenic shock, as the white count and, chest x-ray as well as UA not very impressive. Possible differentials septic shock versus cardiogenic shock. We will obtain an echocardiogram in the a.m. Problem list along with assessment and plan. Problem #1 hypotension most likely secondary to septic versus cardiogenic shock. Continue to follow blood cultures, sputum cultures, urine cultures. Continue to trend white count. Continue to monitor vitals, intake and output, surveillance monitor. And received one time off IV ceftriaxone and azithromycin, as the chest x-ray and UA are not very impressive, he does not have any symptoms, we will hold off antibiotics for now. If worsening signs of sepsis, consider starting antibiotics. Will trend EKG and troponins. We will hold all the antihypertensive medications for now. Problem #2 history of coronary artery disease status post CABG and drug-eluting stents. Patient was on baby aspirin, continue aspirin daily. Patient was also on Plavix, however the is not very clear of the home medications and what he takes. He did not give us any clear list of medications that he takes. He does have Plavix and his home medication list, ever as per the he has not been taking it due to some allergy, need to confirm this. Nephrology consult in a.m. Consider ID consult if worsening leukocytosis. Continue Levothroid to keep map above 60. Continue to monitor CVP. Gentle hydration with only 30 mL per hour. Problem #3 history of hypertension. We'll hold off all antihypertensives for now. Problem #4 history of hyperlipidemia. We'll hold off statins for now. Problem #5 history of myotonic dystrophy. Problem #6 history of PTSD. We will hold off all his home medications for now, as the medication list was not confirmed. PCP is Alma Burton, have to call her in a.m. to confirm the medication list and medications the patient is actually actively taking. I did went through all the medication list with the however she had medications from 2013 and , which probably he was not taking, and she wasn't very sure on what were his active medications. He is full code. DVT prophylaxis with Lovenox. Mild/moderate and severe pain pathway. Please confrim CMR in am. As Ranked By This Provider Problem List: 1. Dizziness 2. Hypotension Core Measures/Miscellaneous Acute Coronary Syndrome ACS Diagnosis: No Cerebrovascular Accident CVA/TIA Diagnosis: No Congestive Heart Failure CHF Diagnosis: No VTE (View Protocol) VTE Risk Factors: Age > 40 [facility] prophylaxis d/t: No contraindications No VTE Pharm Prophylaxis d/t: No contraindications VTE Diagnosis: No VTE Type: NONE VTE Confirmed by (Test): NONE Sepsis (View Protocol) Severe Sepsis Present: No Septic Shock Septic Shock Present: No Miscellaneous Documentation Attending Case Discussed With: DAX GARBER MD Primary Care Physician: ALMA BURTON APRN Patient sees these Specialists Dr andre Level of Patient Care: Critical Care (CRI) DAX GARBER 08/27/16 0446: Attending MD Review Statement Attending Statement Attending MD Statement: examined this patient, discuss w/resident/PA/VICE PRESIDENT OF TALENT MANAGEMENT, agreed w/resident/PA/VICE PRESIDENT OF TALENT MANAGEMENT, discussed with family, reviewed EMR data (avail), reviewed images, amended to note Attending Assessment/Plan: CC: dizziness PMH: Right angioplasty, first-degree AV block, myotonic dystrophy, BPH, femoral bypass, HLD, back surgery, ROLAND on CPAP, HFrEF(40%) , S/P pacemaker Patient was brought in ER by his for an episode of dizziness and lightheadedness. Patient was shaking at home and felt very lethargic so took a nap, when he woke up he had episode of urinary incontinence because he could not make it to the bathroom and his blood pressure was 90/60 checked by his . Because patient was still very dizzy, lethargic the decided to come to hospital. 14 point ROS unremarkable including chest pain, cough, dysuria, burning, nausea, vomiting, diarrhea. Patient has mild upper respiratory congestion but that just started after coming to ER. Patient and his do not provide any history regarding medications. Patient was planned to undergo possible stenting of left femoral vessel last week, but machine was out of order some that could not be done. Vitals: Height arrival T max 102.4, HR 110, blood pressure 105/68, respiration 20, saturating 91% on 2 L. Later on blood pressure dropped to 72/56, heart rate 80. On exam: A O 3, lethargic, cooperative, no acute distress, neck supple, JVD elevated, no lymphadenopathy, mucosa dry, no focal neurological deficit, no dependent edema, no obvious skin rashes or inflammation CVS: S1-S2, RRR. RS: Crackles in all lung perera. Abdomen: Soft, NT, ND, bowel sounds present. Peripheral pulses palpable thready, extremities warm. Labs: WBC 14.4, neutrophils 92%, bands 6, hemoglobin 18, hematocrit 53, sodium 134, potassium 4.2, chloride 102, right carpal 23, BUN 24, creatinine 0.7, glucose 147, calcium 10.1, lactate 2.6, LFT unremarkable, troponin 0.04 UA positive for small leukocyte esterase ABG 7.38/30/74/17 on 2 L NC CXR: 1. Low inspiratory effort with mild prominence of central vessels. The increased lung markings are accentuated by the low inspiration. 2. No focal consolidation. CTA chest with contrast: No acute abnormality. No evidence of pulmonary embolism. A and P 70-year-old male with extensive past medical history, poor historian presented in ER for dizziness and low blood pressure at home. At arrival patient's blood pressure was low normal range with mild tachycardia, While in ER patient's blood pressure dropped significantly. Patient received 6 L normal saline bolus in ER and blood pressure was still 60 over Doppler at that point central line was placed. His hemoglobin, hematocrit, BUN point towards more hemoconcentration, appears dehydrated on exam, Patient's JVD was significantly elevated, had crackles all the lung perera . Extensive cardiac and vascular history, CTA was obtained to rule out any vascular pathology, PE, pneumonia. Patient has mild leukocyte esterase but no symptoms of UTI except one episode of incontinence. At this point unclear source of hypotension, his lactic acid improved from 2.6-1.0, patient currently on Levophed. + Septic shock versus cardiogenic shock + UTI versus pneumonia + History of CAD S/P CABG S/P stent + S/P pacemaker + PVD + ROLAND + HFrEF(40%) - Admit to ICU - Continue gentle hydration - Titrate Levophed to keep map above 60 - Trend lactate - Serial troponin and EKG - Urine culture, blood culture - Continue ceftriaxone and azithromycin - Cardiology consult - Critical care consult - Need to reconfirm his home medications - DVT prophylaxis with Lovenox TTS 30 min
[2016-08-26] MEDS ORDERED: MYSOLINE50 M1 PO (21:25)
[2016-08-26] MEDS ORDERED: COLESTID1 G1 PO (21:28)
--- NOTE | 2016-08-26 21:28 | NUR ---
PT RECEIVED A CENTRAL LINE TO HIS RT JUGULAR AREA TOLERATED WELL AND PENA PLACED AND BLD PRESSURE A LITTLE BETTER
[2016-08-26] MEDS ORDERED: LISINOPRIL2.5 M1 PO (21:29)
--- NOTE | 2016-08-26 21:35 | NUR ---
MULTIPLE ATTEMPTS MADE TO OBTAIN ABG BY RT UNSUCCESSFUL RESIDENT INFORMED OF LORENZO
--- NOTE | 2016-08-26 21:55 | NUR ---
REPORT GIVEN TO ICU AND PT TO BE TRANSPORTED TO CAT SCAN AND THEN TO FLOOR
--- NOTE | 2016-08-26 22:38 | NUR ---
PT TRANSPORTED SAFELY TO FLOOR
--- NOTE | 2016-08-26 22:39 | NUR ---
ASHLIE CHEUNG Nurse Note by: GEMA LEVINE I agree with the CERAMIC TILE SETTER findings/evaluation of this patient's condition. Entered by: GEMA LEVINE Date: 08/26/16 Time: 4639
[2016-08-26 23:00] VITALS: BP 91/60
--- NOTE | 2016-08-26 23:27 | CT SCAN REPORT ---
EXAMINATION: CT ANGIOGRAM CHEST, PE STUDY CLINICAL INFORMATION: Shortness of breath. Weakness. Hypertension. COMPARISON: Chest x-ray 08/26/2016, 07/03/2016, 07/21/2013 TECHNIQUE: A noncontrast localizer was performed, followed by the administration of 115 mL Optiray [address] of the chest was then performed. Coronal and sagittal reformatted and 3-D technique MIP images of the chest were completed at the CT scanner and reviewed on the PACS workstation. No adverse effects were reported. DLP: 525.34 mGy-cm. FINDINGS: VASCULAR: The main pulmonary artery, secondary and tertiary branches of the pulmonary artery are normally opacified with no evidence of pulmonary embolism. There is extensive atherosclerotic vascular wall calcifications of the aorta and great vessels. Vascular calcification at the origin of great vessels. Vascular stent at the origin of the left brachiocephalic artery. Vascular calcification of coronary arteries. Status post median sternotomy for CABG. Pacemaker leads in right atrium and right ventricle. MEDIASTINUM: No mediastinal mass. No significant lymphadenopathy. There is no pericardial effusion. LUNGS: Coarse reticular opacities at dependent lung of linear atelectasis. FLUID: There is no pericardial effusion. There is no pleural effusion. AXILLA: No significant lymphadenopathy. UPPER ABDOMEN: Several hepatic cysts seen in right and left lobe of liver. Adrenal glands are normal. SKELETAL: Status post median sternotomy. Multilevel degenerative change of the spine with endplate spurs of the vertebrae. IMPRESSION: No acute abnormality. No evidence of pulmonary embolism.
--- NOTE | 2016-08-27 00:54 | NUR ---
RECEIVED PT FROM ER VIA STRETCHER AT 2230-EKG MONITORING, 02 AT 2LNC, IVF INFUSING, PENA IN PLACE, RT IJ TLC IN PLACE. PT PLACED IN BED AT ATTACHED TO BEDSIDE MONITOR. PT A/OX3, FOLLOWS COMMANDS. DENIES ANY PAIN AT PRESENT. BREATH SOUNDS CLEAR WITH DIMINISHED BREATH SOUNDS AT BASES BILATERALLY. NO COUGH, SOB OR RESP DISTRESS NOTED AT PRESENT. SEE FLOW SHEET FOR VS, 02 SATS, I/O'S. MONITOR SHOWS 1ST DEGREE AVB, NO ECTOPY NOTED AT PRESENT. BP IN 80'S ON ADMISSION-LEVOPHED GTT STARTED AT 5MCG/MIN ORDERED-SEE FREQUENT VS SHEET FOR TITRATION. CVP-9 AT PRESENT. ABD SOFT, NONTENDER, NONDISTENDED, POSITIVE BOWEL SOUNDS. PENA IN PLACE-DRAINING CLEAR YELLOW URINE AT PRESENT. SKIN INTACT. ORIENTATION TO UNIT DONE
--- NOTE | 2016-08-27 04:47 | Admission Certification ---
Admission Certification Certification Statement - As attending physician, I certify that at the time of - admission, based on clinical presentation, severity of - symptoms, need for further diagnostic testing and - therapeutic interventions, and risk of adverse outcomes - without in-hospital treatment, in my clinical assessment, - this patient requires an acute hospital stay for a minimum - of two nights or longer. I have also considered psychsocial - factors such as support system, advanced age, financial - issues, cognitive issues, and failed out-patient treatments, - past re-admission history, safety of patient, and lack of - compliance as applicable. Specific rationale supporting this admission is: Hypotension
[2016-08-27 05:42] LABS: ABSOLUTE BASOPHIL COUNT 0 /CUMM (0.0-0.2); ABSOLUTE EOSINOPHIL COUNT 0 /CUMM (0.0-0.7); ABSOLUTE GRANULOCYTE CT 15.7 /CUMM (1.4-6.5); ABSOLUTE LYMPH COUNT 0.9 /CUMM (1.2-3.4); ABSOLUTE MONOCYTE COUNT 1.1 /CUMM (0.10-0.60); BASOPHIL % 0.1 % (0.0-2.0); EOSINOPHIL % 0 % (0-5); MEAN CORPUSCULAR HGB 32.2 PG (27.0-31.0); MEAN CORPUSCULAR HGB CONC 33.5 G/DL (33.0-37.0); MEAN CORPUSCULAR VOLUME 96.1 FL (80.0-94.0); MEAN PLATELET VOLUME 8.5 FL (7.4-10.4); PLATELET COUNT 135 /CUMM (130-400); RED BLOOD CELL CT 4.86 /CUMM (4.70-6.10); WHITE BLOOD CELL COUNT 17.6 /CUMM (4.8-10.8)
[2016-08-27 05:48] LABS: HEMATOCRIT 46.7 % (42-52)
--- NOTE | 2016-08-27 06:50 | NUR ---
PT SLEPT MOST OF SHIFT. PT REMAINS A/OX3, DENIED ANY PAIN THOUGHOUT SHIFT. BREATH SOUNDS REMAIN CLEAR. NO SOB OR RESP DISTRESS NOTED THOUGHOUT SHIFT. MONITOR 1ST DEGREE AVB, OCC PACED BEAT NOTED. BP 90-100'S THOUGHOUT SHIFT-LEVOPHED GTT TITRATED OFF AT 0630 BUT RESTARTED AT 5MCG/MIN SBP-80'S. ADEQUATE URINE OUTPUT VIA PENA FOR SHIFT. SKIN REMAINS INTACT
[2016-08-27 08:00] VITALS: BP 100/60
--- NOTE | 2016-08-27 08:15 | Cons- CRCU ---
[facility] 08/27/16 0814: General Information and HPI Consulting Request Date of Consult: 08/27/16 Requested By: Dr. Swift Source of Information: patient Exam Limitations: no limitations History of Present Illness: 70-year-old gentleman with past medical history of coronary artery disease status post CABG in 1998, status post left subclavian angioplasty performed for total subclavian occlusion, right coronary artery with 2 drug-eluting stents, systolic and diastolic heart failure, hypertension dyslipidemia, prostatic enlargement, obstructive sleep apnea on CPAP, myotonic dystrophy, current smoker , occasional alcoholic came to ED with chief complaints of dizziness and generalized weakness Patient was apparently normal until the day of admission yesterday. He was outdoors with the children, then he felt dizzy, lightheaded and hence he came inside.His offered him some ice water, and gave him a peanut butter sandwich as he hadn't eaten anything in morning, however he felt very fatigued and therefore laid down. He tried to go upstairs for a nap, was unable to do that due to weakness therefore laid on the sofa. He was shaky, possibly was having chills and rigors. Blood pressure then noted to be 115/80 mmHg. He took a nap for 2-3 hours. On waking up he noticed that he had an accident and had an episode of urinary incontinence which was very unusual. His measured his blood pressure again and it noted to be 90/60 mmHg and came to [facility] ED and He denies any chest pain, palpitations, loss of consciousness, abdominal pain, dysuria, vomiting, diarrhea,recent hospital admission. 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 He has been working with physical therapy. He does not drive on occasion does his groceries. Patient is an active smoker who willing to quit smoking once he is out of the hospital Allergies/Medications Allergies: Coded Allergies: NO KNOWN ALLERGIES (06/24/11) Home Med List: Acetaminophen (Unknown Strength) TABLET (Unknown Dose) PO PRN PAIN (Reported) Aspirin (Ecotrin*) 81 MG TABLET. 1 TAB PO DAILY HEART/BLOOD (Reported) Calcium Carbonate (Calcium) (Unknown Strength) TABLET (Unknown Dose) PO DAILY SUPPLEMENT (Reported) Cholecalciferol (Vitamin D3) (Vitamin D) (Unknown Strength) TABLET (Unknown Dose) PO DAILY SUPPLEMENT (Reported) Clopidogrel Bisulfate (Clopidogrel) 75 MG TABLET 1 TAB PO DAILY BLOOD THINNER (Reported) Colestipol HCl (Colestid) 1 GRAM TABLET 4 TAB PO BID CHOLESTEROL (Reported) LAST PRESCRIBED IN 2014 Dm/P-Ephed/Acetaminoph/Doxylam ([place]athal[place] Plus Cold+Flu Pkt) (Unknown Strength) POWD.PACK (Unknown Dose) PO AD COLD SYMPTOMS (Reported) Ezetimibe (Zetia) 10 MG TABLET 1 TAB PO DAILY CHOLESTEROL (Reported) Lisinopril 2.5 MG TABLET 1 TAB PO DAILY BP (Reported) Metoprolol Succinate 25 MG TAB 1 TAB PO DAILY BP/HEART (Reported) Multivitamin (Multi-Day Vitamins) 1 EACH TABLET 1 TAB PO DAILY SUPPLEMENT ( Reported) Niacinamide (Niacin) (Unknown Strength) TABLET 500 MG PO DAILY SUPPLEMENT ( Reported) Primidone (Mysoline) 50 MG TABLET 0.5 TAB PO DAILY BP (Reported) Tamsulosin HCl (Flomax) 0.4 MG CAP.ER.24H 1 CAP PO DAILY PROSTATE (Reported) Current Medications: Current Medications Sig/Yamilet Start time Last Medication Dose Route Stop Time Status Admin Acetaminophen 650 MG Q6P PRN 08/26 2100 AC PO Acetaminophen 1,000 MG Q6P PRN 08/26 2100 AC IV Acetaminophen 1,000 MG ONCE ONE 08/26 1800 DC 08/26 N/A 1 UNIT IV 08/26 1813 1758 Acetaminophen 0 .STK-MED ONE 08/26 1759 DC IV Acetaminophen 975 MG ONCE ONE 08/26 1745 CAN PO 08/26 1746 Albuterol Sulfate 3 ML ONCE ONE 08/26 1815 DC 08/26 INH 08/26 1816 1807 Aspirin Buffered 81 MG DAILY 08/27 1000 AC 08/27 PO 1038 Azithromycin 500 MG ONCE ONE 08/26 1845 DC 08/26 Sodium Chloride 250 ML IV 08/26 194 1915 Ceftriaxone Sodium 0 .STK-MED ONE 08/26 190 DC .ROUTE Ceftriaxone Sodium 1,000 MG ONCE ONE 08/26 190 DC 08/26 IV 08/26 190 1915 Clopidogrel Bisulfate 75 MG DAILY 08/27 1120 DC PO Enoxaparin Sodium 40 MG DAILY 08/27 1000 AC 08/27 SC 1038 Ezetimibe 10 MG DAILY 08/27 1121 AC PO Ipratropium [place] 2.5 ML ONCE ONE 08/26 1815 DC 08/26 INH 08/26 1816 1807 Lidocaine 0 .STK-MED ONE 08/26 204 DC .ROUTE Magnesium Oxide 400 MG ONE ONE 08/27 0900 DC 08/27 PO 08/27 09 1038 Morphine Sulfate 0.5 MG Q4P PRN 08/26 2100 AC IV Nicotinic Acid 500 MG DAILY 08/27 112 AC PO Norepinephrine 4 MG Q24H 08/26 2230 AC 08/27 Sodium Chloride 250 ML IV 0158 Potassium Chloride 40 MEQ ONCE ONE 08/27 09 DC 08/27 PO 08/27 09 1038 Sodium Chloride 1,000 ML .Q24H 08/26 2315 AC 08/26 IV 08/28 2314 2326 Sodium Chloride 1,000 ML BOLUS ONE 08/27 1999 DC 08/26 IV 08/26 Sodium Chloride 1,000 ML BOLUS ONE 08/26 191 DC 08/26 IV 08/26 2013 191 Sodium Chloride 1,000 ML BOLUS ONE 08/26 1915 DC 08/26 IV 08/26 2013 1915 Sodium Chloride 1,000 ML .Q1H ONE 08/26 1915 DC 08/26 IV 08/26 2013 195 Sodium Chloride 1,000 ML BOLUS ONE 08/26 1845 DC 08/26 IV 08/26 1944 1845 Sodium Chloride 1,000 ML BOLUS ONE 08/26 1745 DC 08/26 IV 08/26 1844 1758 Review of Systems Review of Systems Constitutional: Denies: chills, fever, malaise. EENTM: Reports: no symptoms. Denies: blurred vision, double vision, visual changes. Cardiovascular: Denies: chest pain, edema, orthopena, palpitations (right lower leg pedal edema+ ). Respiratory: Denies: no symptoms, cough, hemoptysis, orthopnea, short of breath, sputum production. GI: Denies: abdominal pain, diarrhea, distention, nausea, vomiting. Genitourinary: Denies: dysuria, frequency, hematuria, hesitation. Musculoskeletal: Reports: back pain, muscle stiffness. Denies: joint pain. Skin: Denies: change in skin color, dryness. Neurological/Psychological: Denies: anxiety, depressed, dementia, headache, numbness, tremors. Hematologic/Endocrine: Denies: no symptoms. Immunologic/Allergic: Denies: no symptoms. All Other Systems: Reviewed and Negative Past History Travel History Traveled to [place] past 21 day No Medical History Blood Transfusion Hx: No Neurological: NONE EENT: NONE Cardiovascular: CAD, diastolic CHF, myocardial infarction, systolic CHF Respiratory: NONE Gastrointestinal: NONE Hepatic: NONE Renal: NONE Musculoskeletal: NONE (myotonic dystrophy) Psychiatric: NONE Endocrine: NONE Blood Disorders: NONE Cancer(s): NONE Surgical History Surgical History: hernia repair-umbilical, femoral bypass 20 years ago, status post CABG, meniscus surgery for [id number] disc disease, recent major plasty to the right coronary artery andleft subclavian, rotator cuff surgery. Family History Relations & Conditions If Any: MOTHER (HTN). Psychosocial History Where Do You Live? Home Who Do You Live With? spouse, child Services at Home: Nursing Primary Language: [place]i Smoking Status: Current Everyday Smoker (willing to quit smoking) ETOH Use: occasional use Illicit Drug Use: denies illicit drug use Functional Ability ADLs Independent: dressing, eating, toileting, bathing. Ambulation: independent IADLs Independent: transportation, medication admin. Needs Assist: shopping (n). ECHO Results (as available) Date of last Echo 04/07/16 EF% 35 (ef 35-40%) Exam & Diagnostic Data Last 24 Hrs of Vital Signs/I&O Vital Signs Date Time Temp Pulse Resp B/P B/P Pulse O2 O2 Flow FiO2 Mean Ox Delivery Rate 08/27 1145 Nasal 3.0L Cannula 08/27 1144 96 Nasal 3.0L Cannula 08/27 0400 97 Nasal 2.0L Cannula 08/27 0158 80 20 114/57 08/27 0000 96 Nasal 2.0L Cannula 08/26 2300 98.9 88 23 91/60 94 Nasal 2.0L Cannula 08/26 2230 94 Nasal 2.0L Cannula 08/26 2150 99.7 08/26 2131 84/0 08/26 1956 100.5 95 18 60/42 96 Nasal 2.0L Cannula 08/26 1948 100 16 66/0 94 Room Air Room Air 08/26 1911 99.7 80 16 72/56 94 Nasal 2.0L Cannula 08/26 1827 100.7 08/26 1802 95 Room Air 08/26 1758 102.4 08/26 1714 102.4 110 20 105/68 91 Room Air Intake & Output 08/27 1600 08/27 0800 08/27 0000 Intake Total 638 6250 Output Total 580 850 Balance 58 5400 Intake, IV 398 6250 Intake, Oral 240 Number 0 Bowel Movements Output, Urine 580 850 Patient 193 lb Weight Weight Bed scale Measurement Method Physical Exam General Appearance: alert, awake, comfortable Head: atraumatic, normal appearance Neck: normal inspection, supple (no jvd), central line in right internal jugular vein. no sign of any swelling or redness. Respiratory: normal breath sounds Cardiovascular: regular rate/rhythm Gastrointestinal: normal bowel sounds, soft, non-tender, no organomegaly Back: normal inspection Extremities: normal inspection (right ankle pedal edema 2+) Neurologic/Psych: no motor/sensory deficits, awake, alert, oriented x 3 Cranial Nerves: normal hearing Skin: normal color Last 48 Hrs of Labs/Stefan: Laboratory Tests 08/27/16 1110: PT 14.6 H, INR 1.40 H 08/27/16 1100: Troponin I 0.07 08/27/16 0440: Anion Gap 7, Estimated GFR > 60, Glucose 114 H, Lactic Acid 0.7, Uric Acid 5.8, Calcium 8.1 L, Phosphorus 2.5, Magnesium 1.8, Total Bilirubin 0.6, AST 41, ALT 61, Troponin I 0.11 *H, [id number] Pept 4370 H, Albumin 2.8 L, CBC w Diff MAN DIFF ORDERED, RBC 4.86, MCV 96.1 H, MCH 32.2 H, RDW 14.0, MPV 8.5, Gran % 89.0 H, Lymphocytes % 4.9 L, Monocytes % 6.0, Eosinophils % 0, Basophils % 0.1, Absolute Granulocytes 15.7 H, Segmented Neutrophils 85 H, Band Neutrophils 5, Absolute Lymphocytes 0.9 L, Lymphocytes 2 L, Monocytes 8, Absolute Monocytes 1.1 H, Absolute Eosinophils 0, Absolute Basophils 0, Platelet Estimate ADEQUATE, Polychromasia 1+, Poikilocytosis 1+, Ovalocytes 1+, PUBS MCHC 33.5, Fld Total RBCs Counted 100 08/26/16 2349: Troponin I 0.11 *H 08/26/16 2255: pH 7.38, pCO2 30 L, pO2 74 L, HCO3 17 L, ABG O2 Sat (Measured) 93.0 L, Carboxyhemoglobin 2.8, O2 Concentration % 2L, Temperature 98.5, O2 Delivery Method NC, Phlebotomy Draw Site RIGHT BRACHIAL 08/26/162009: Lactic Acid 1.0 08/26/161754: Urine Color YEL, Urine Clarity CLEAR, Urine pH 6.5, Ur Specific [place] 1.010, Urine Protein NEG, Urine Ketones NEG, Urine Nitrite NEG, Urine Bilirubin NEG, Urine Urobilinogen 0.2, Ur Leukocyte Esterase SMALL H, Ur Microscopic SEDIMENT EXAMINED, Urine RBC RARE, Urine WBC 1-3 H, Ur Epithelial Cells OCCAS, Urine Hemoglobin NEG, Urine Glucose NEG 08/26/16 1730: Anion Gap 9, Estimated GFR > 60, BUN/Creatinine Ratio 34.3 H, Glucose 147 H, Lactic Acid 2.6 H, Calcium 10.1, Total Bilirubin 0.9, AST 31, ALT 49, Alkaline Phosphatase 69, Troponin I 0.04, Total Protein 6.5, Albumin 3.8, Globulin 2.7, Albumin/Globulin Ratio 1.4, CBC w Diff MAN DIFF ORDERED, RBC 5.64, MCV 95.4 H, MCH 32.0 H, RDW 14.1, MPV 8.2, Gran % 92.1 H, Lymphocytes % 2.3 L, Monocytes % 5.2, Eosinophils % 0.3, Basophils % 0.1, Absolute Granulocytes 13.3 H, Segmented Neutrophils 82 H, Band Neutrophils 6 H, Absolute Lymphocytes 0.3 L, Lymphocytes 7 L, Monocytes 4, Absolute Monocytes 0.8 H, Eosinophils 1, Absolute Eosinophils 0, Absolute Basophils 0, Platelet Estimate ADEQUATE, Normochromic RBCs VERIFIED, Anisocytosis 1+, Macrocytic Cells 1+, PUBS MCHC 33.5 , Lyme Disease Antibody Pending Diagnostic Data EKG Results sinus tachycardia CXR Results 1. Low inspiratory effort with mild prominence of central vessels. The increased lung markings are accentuated by the low inspiration. 2. No focal consolidation Other Results SERVICE DATE: 08/26/16-2049 EXAM TYPE: CAT - CTA CHEST FINDINGS: VASCULAR: The main pulmonary artery, secondary and tertiary branches of the pulmonary artery are normally opacified with no evidence of pulmonary embolism. There is extensive atherosclerotic vascular wall calcifications of the aorta and great vessels. Vascular calcification at the origin of great vessels. Vascular stent at the origin of the left brachiocephalic artery. Vascular calcification of coronary arteries. Status post median sternotomy for CABG. Pacemaker leads in right atrium and right ventricle. MEDIASTINUM: No mediastinal mass. No significant lymphadenopathy. There is no pericardial effusion. LUNGS: Coarse reticular opacities at dependent lung of linear atelectasis. FLUID: There is no pericardial effusion. There is no pleural effusion. AXILLA: No significant lymphadenopathy. UPPER ABDOMEN: Several hepatic cysts seen in right and left lobe of liver. Adrenal glands are normal. SKELETAL: Status post median sternotomy. Multilevel degenerative change of the spine with endplate spurs of the vertebrae. IMPRESSION: No acute abnormality. No evidence of pulmonary embolism. Assessment/Plan Impression/Plan: 70-year-old gentleman with past medical history of coronary artery disease s/p CABG in 1998 (4 grafts with aortobifemoral bypass 15-20 years ago), RCA with 2 drug-eluting stents, s/p left subclavian angioplasty performed for total subclavian occlusion, systolic and diastolic heart failure, hypertension, dyslipidemia, myotonic dystrophy,prostatic enlargement, obstructive sleep apnea on CPAP, PTSD, previous back surgery, current active smoker, occasional alcoholic and no illicit drug abuse came to ED with chief complaint of dizziness and generalized weakness since the yesterday. Patient is admitted in ICU to maintain his blood pressure with pressors in view of shock likely sepsis VS cardiogenic. Patient is afebrile, alert, comfortable at rest.Fever now subsided with leukocytosis. Plan Respiratory -Normal chest x-ray -Normal CTA -No signs of pneumonia ID -Cultures pending -Possible UTI, monitor with CBCs and temperature -Received 1 dose of ceftriaxone and azithromycin at ED -ID consult -suggestive of sepsis, with possible sources including a cellulitis over the right ankle and an intra-abdominal process, with mild, questionable right lower quadrant tenderness. To be continued on empiric antibiotics pending further evaluation. - suggested elevation and warm compression of right leg, CT abdomen and pelvis is lower quadrant tenderness persists, continue ceftriaxone 1 g IV. CVS -Repeat echo Cardiology recommendations -Recommended continued monitoring of EKG, troponin, fluid restriction.to continue Pressors for his hypotension. Watch closely for fluid overload and [facility]. Withhold Plavix Heme -Check coags -Monitor WBC and hemoglobin Metabolic -Monitor electrolytes creatinine. Replete as needed Alimentary -Diet Neuro -No active issues DVT prophylaxis -Lovenox Problem List: 1. Septic shock Consult Acknowledgment - Thank you for your consult request. MORGAN BLEDSOE MD 08/27/16 1052: Assessment/Plan Other Findings/Comments: Morgan George M.D. have examined this patient, reviewed available EMR data, personally reviewed images, discussed with resident/PA/PHYSICAL THERAPY MANAGER, discussed management plan with housestaff and nursing staff, discussed managment plan all of healthcare providers, discussed management plan with patient and/or family, agreed with resident/PA/PHYSICAL THERAPY MANAGER. The past history and parts of the chart have been autopopulated. Impression 70 year old man * Admitted to the ICU for vasopressor use in setting of shock. Differential diagnosis is hypovolemic, septic, less likely cardiogenic. Febrile with leukocytosis. Plan Respiratory -no signs of pneumonia -normal CTA ID -f/u all cultures -possible UTI source -febrile with leukocytosis, monitor fevers and wbc -received Ceftriaxone and Zithromax -ID consultation for appropriate antiobiotic coverage CVS -ECHO repeat -Cardiology consulted and will follow Heme -monitor wbc, hemoglobin -on asa and plavix -check coags for baseline Metabolic -ins/outs -monitor creatinine, electrolytes, replete as needed Alimentary -diet Neuro -no active issues DVT prophyalxis - Lovenox Pain control TTS 60 min Consult Acknowledgment - Thank you for your consult request. TTS 60 min Consult Acknowledgment - Thank you for your consult request.
--- NOTE | 2016-08-27 10:33 | Cons- Cardiology ---
General Information and HPI Consulting Request Date of Consult: 08/27/16 Requested By: DAX GARBER MD Reason for Consult: Hypotension in a 70-year-old man with known heart disease. Source of Information: patient, old records Exam Limitations: no limitations History of Present Illness: Mr. Rodriguez is a 70-year-old man with a history of previous bypass surgery in 1998 and aortobifemoral vascular bypass 15-20 years ago. He's also had angioplasty of his grafts in the past, date unknown. He also has a dual-chamber pacemaker, date of implantation and indication unknown at this time. He is on usual cardiac medications at home. His last echocardiogram in March 2016 showed ejection fraction of 35-40%. Yesterday the patient did not feel well with generalized weakness. This did not improve with hydration and he came to emergency room where he was found to be markedly hypotensive with systolic pressures in the 60s. His EKG did not show any acute changes and his initial troponin was negative but the second one was positive at 0.11. He was febrile to 102.4 with elevated white count to 14.4 with left shift. He was given IV antibiotics in the emergency department and started on fluids. A central line was placed and he was started on Levothroid. This morning his blood pressure is improved in the 110s. The nurse was unable to wean him off Levothroid however as his blood pressure dropped again. His third troponin did come back again a 0.11. Another one is pending. His follow- up EKG did not show any acute changes. The patient denies any chest pain or shortness of breath associated with this presentation. He does not have chronic angina. Allergies/Medications Allergies: Coded Allergies: NO KNOWN ALLERGIES (06/24/11) Home Med List: Acetaminophen (Unknown Strength) TABLET (Unknown Dose) PO PRN PAIN (Reported) Aspirin (Ecotrin*) 81 MG TABLET.DR 1 TAB PO DAILY HEART/BLOOD (Reported) Calcium Carbonate (Calcium) (Unknown Strength) TABLET (Unknown Dose) PO DAILY SUPPLEMENT (Reported) Cholecalciferol (Vitamin D3) (Vitamin D) (Unknown Strength) TABLET (Unknown Dose) PO DAILY SUPPLEMENT (Reported) Colestipol HCl (Colestid) 1 GRAM TABLET 4 TAB PO BID CHOLESTEROL (Reported) LAST PRESCRIBED IN 2014 Dm/P-Ephed/Acetaminoph/Doxylam ([place] Plus Cold+Flu Pkt) (Unknown Strength) POWD.PACK (Unknown Dose) PO AD COLD SYMPTOMS (Reported) Ezetimibe (Zetia) 10 MG TABLET 1 TAB PO DAILY CHOLESTEROL (Reported) Lisinopril 2.5 MG TABLET 1 TAB PO DAILY BP (Reported) Metoprolol Succinate 25 MG TAB 1 TAB PO DAILY BP/HEART (Reported) Multivitamin (Multi-Day Vitamins) 1 EACH TABLET 1 TAB PO DAILY SUPPLEMENT ( Reported) Niacinamide (Niacin) (Unknown Strength) TABLET 500 MG PO DAILY SUPPLEMENT ( Reported) Primidone (Mysoline) 50 MG TABLET 0.5 TAB PO DAILY BP (Reported) Tamsulosin HCl (Flomax) 0.4 MG CAP.ER.24H 1 CAP PO DAILY PROSTATE (Reported) Current Medications: Current Medications Sig/Yamilet Start time Last Medication Dose Route Stop Time Status Admin Acetaminophen 650 MG Q6P PRN 08/26 2100 AC PO Acetaminophen 1,000 MG Q6P PRN 08/26 2100 AC IV Acetaminophen 1,000 MG ONCE ONE 08/26 1800 DC 08/26 N/A 1 UNIT IV 08/26 181 1758 Acetaminophen 0 .STK-MED ONE 08/26 1759 DC IV Acetaminophen 975 MG ONCE ONE 08/26 1745 CAN PO 08/26 1746 Albuterol Sulfate 3 ML ONCE ONE 08/26 1815 DC 08/26 INH 08/26 1816 1807 Aspirin Buffered 81 MG DAILY 08/27 1000 AC PO Azithromycin 500 MG ONCE ONE 08/26 1845 DC 08/26 Sodium Chloride 250 ML IV 08/26 1944 1915 Ceftriaxone Sodium 0 .STK-MED ONE 08/26 190 DC .ROUTE Ceftriaxone Sodium 1,000 MG ONCE ONE 08/26 1900 DC 08/26 IV 08/26 1901 1915 Enoxaparin Sodium 40 MG DAILY 08/27 1000 AC SC Ipratropium [place] 2.5 ML ONCE ONE 08/26 1815 DC 08/26 INH 08/26 181 1807 Lidocaine 0 .STK-MED ONE 08/26 2043 DC .ROUTE Magnesium Oxide 400 MG ONE ONE 08/27 0900 DC PO 08/27 0901 Morphine Sulfate 0.5 MG Q4P PRN 08/26 2100 AC IV Norepinephrine 4 MG Q24H 08/26 2230 AC 08/27 Sodium Chloride 250 ML IV 0158 Potassium Chloride 40 MEQ ONCE ONE 08/27 0900 DC PO 08/27 0901 Sodium Chloride 1,000 ML .Q24H 08/26 2315 AC 08/26 IV 08/284 2326 Sodium Chloride 1,000 ML BOLUS ONE 08/27 1999 DC 08/26 IV 08/26 Sodium Chloride 1,000 ML BOLUS ONE 08/26 191 DC 08/26 IV 08/26 Sodium Chloride 1,000 ML BOLUS ONE 08/26 191 DC 08/26 IV 08/26 Sodium Chloride 1,000 ML .Q1H ONE 08/26 1915 DC 08/26 IV 08/26 Sodium Chloride 1,000 ML BOLUS ONE 08/26 184 DC 08/26 IV 08/27 1943 184 Sodium Chloride 1,000 ML BOLUS ONE 08/26 174 DC 08/26 IV 08/27 1843 175 Review of Systems Review of Systems: He has no other complaints in the review of systems. Past History Travel History Traveled to [place] past 21 day No Medical History Blood Transfusion Hx: Yes Neurological: NONE EENT: NONE Cardiovascular: CAD (this is V. tach), myocardial infarction, CABGOr (isabdomen) Respiratory: NONE Gastrointestinal: NONE Hepatic: NONE Renal: NONE Musculoskeletal: NONE Psychiatric: NONE Endocrine: NONE Blood Disorders: NONE Cancer(s): NONE Other Medical Hx: Dyslipidemia, a femoral bypass 20 years ago, coronary artery disease status post CABG x4, coronary artery disease status post anterior wall [place], status post thrombolytics, back surgery, meniscus surgery for L5-S1 degenerative disc disease, recent angioplasty to the right coronary artery and left subclavian, obstructive sleep apnea, polymyalgia rheumatica, myotonic dystrophy, elevated PSA, posttraumatic stress disorder, rotator cuff surgery. Surgical History Surgical History: cardiac stents, pacemaker Family History Relations & Conditions If Any: MOTHER (HTN). Psychosocial History Where Do You Live? Home Who Do You Live With? spouse, child Services at Home: Nursing Primary Language: Portuguese Smoking Status: Current Everyday Smoker ETOH Use: occasional use Illicit Drug Use: denies illicit drug use Functional Ability ADLs Independent: dressing, eating, toileting, bathing. Ambulation: independent IADLs Independent: transportation, medication admin. ECHO Results (as available) Date of last Echo 04/15/16 EF% 35 Exam & Diagnostic Data Vital Signs and I&O Vital Signs Date Time Temp Pulse Resp B/P B/P Pulse O2 O2 Flow FiO2 Mean Ox Delivery Rate 08/27 0400 97 Nasal 2.0L Cannula 08/27 0158 80 20 114/57 08/27 0000 96 Nasal 2.0L Cannula 08/26 2300 98.9 88 23 91/60 94 Nasal 2.0L Cannula 08/26 2230 94 Nasal 2.0L Cannula 08/26 2150 99.7 08/26 2131 84/0 08/26 1956 100.5 95 18 60/42 96 Nasal 2.0L Cannula 08/26 1948 100 16 66/0 94 Room Air Room Air 08/26 1911 99.7 80 16 72/56 94 Nasal 2.0L Cannula 08/26 1827 100.7 08/26 1802 95 Room Air 08/26 1758 102.4 08/26 1714 102.4 110 20 105/68 91 Room Air Intake & Output 08/27 1600 08/27 0800 08/27 0000 08/26 1600 08/26 0800 08/26 0000 Intake Total 638 6250 Output Total 580 850 Balance 58 5400 Intake, IV 398 6250 Intake, Oral 240 Number 0 Bowel Movements Output, Urine 580 850 Patient 193 lb Weight Weight Bed scale Measurement Method Physical Exam: Well-developed well-nourished man, sitting up in bed, eating breakfast, no acute distress. HEENT exam normal Neck veins not distended Carotids difficult to assess due to IJ catheter and neck Chest clear to percussion and auscultation Heart regular rhythm, no murmurs, gallops or rubs. Healed midsternal scar noted Abdomen benign Extremities some edema and warmth to the left ankle otherwise negative Labs/Stefan Results: Laboratory Tests 08/27 08/26 0440 2349 Chemistry Sodium (137 - 145 mmol/L) 139 Potassium (3.5 - 5.1 mmol/L) 3.7 Chloride (98 - 107 mmol/L) 112 H Carbon Dioxide (22 - 30 mmol/L) 20 L Anion Gap (5 - 16) 7 BUN (9 - 20 mg/dL) 14 Creatinine (0.7 - 1.2 mg/dL) 0.7 Estimated GFR (>60 ml/min) > 60 Glucose (65 - 99 mg/dL) 114 H Lactic Acid (0.7 - 2.1 mmol/L) 0.7 Uric Acid (3.5 - 8.5 mg/dL) 5.8 Calcium (8.4 - 10.2 mg/dL) 8.1 L Phosphorus (2.5 - 4.5 mg/dL) 2.5 Magnesium (1.6 - 2.3 mg/dL) 1.8 Total Bilirubin (0.2 - 1.3 mg/dL) 0.6 AST (17 - 59 U/L) 41 ALT (21 - 72 U/L) 61 Troponin I (<0.11 ng/ml) 0.11 *H 0.11 *H Albumin (3.5 - 5.0 g/dL) 2.8 L Hematology CBC w Diff MAN DIFF ORDERED WBC (4.8 - 10.8 /CUMM) 17.6 H RBC (4.70 - 6.10 /CUMM) 4.86 Hgb (14.0 - 18.0 G/DL) 15.6 Hct (42 - 52 %) 46.7 MCV (80.0 - 94.0 FL) 96.1 H MCH (27.0 - 31.0 PG) 32.2 H RDW (11.5 - 14.5 %) 14.0 Plt Count (130 - 400 /CUMM) 135 MPV (7.4 - 10.4 FL) 8.5 Gran % (42.2 - 75.2 %) 89.0 H Lymphocytes % (20.5 - 51.1 %) 4.9 L Monocytes % (1.7 - 9.3 %) 6.0 Eosinophils % (0 - 5 %) 0 Basophils % (0.0 - 2.0 %) 0.1 Absolute Granulocytes (1.4 - 6.5 /CUMM) 15.7 H Segmented Neutrophils (42.2 - 75.2 %) 85 H Band Neutrophils (0.0 - 5.0 %) 5 Absolute Lymphocytes (1.2 - 3.4 /CUMM) 0.9 L Lymphocytes (20.5 - 51.1 %) 2 L Monocytes (1.7 - 9.3 %) 8 Absolute Monocytes (0.10 - 0.60 /CUMM) 1.1 H Absolute Eosinophils (0.0 - 0.7 /CUMM) 0 Absolute Basophils (0.0 - 0.2 /CUMM) 0 Platelet Estimate (ADEQUATE) ADEQUATE Polychromasia 1+ Poikilocytosis 1+ Ovalocytes 1+ PUBS MCHC (33.0 - 37.0 G/DL) 33.5 Other Body Source Fld Total RBCs Counted (%) 100 08/26 Blood Gas pH (7.35 - 7.45 PH) 7.38 pCO2 (35 - 45 TORR) 30 L pO2 (80 - 100 TORR) 74 L HCO3 (21 - 28 MEQ/L) 17 L ABG O2 Sat (Measured) (>96.0 %) 93.0 L Carboxyhemoglobin (1.5 - 5.0 %) 2.8 O2 Concentration % 2L Temperature (97.0 - 100.0 FARH) 98.5 O2 Delivery Method NC Chemistry Lactic Acid (0.7 - 2.1 mmol/L) 1.0 Miscellaneous Phlebotomy Draw Site RIGHT BRACHIAL 08/26 08/26 175 1730 Chemistry Sodium (137 - 145 mmol/L) 134 L Potassium (3.5 - 5.1 mmol/L) 4.2 Chloride (98 - 107 mmol/L) 102 Carbon Dioxide (22 - 30 mmol/L) 23 Anion Gap (5 - 16) 9 BUN (9 - 20 mg/dL) 24 H Creatinine (0.7 - 1.2 mg/dL) 0.7 Estimated GFR (>60 ml/min) > 60 BUN/Creatinine Ratio (7 - 25 %) 34.3 H Glucose (65 - 99 mg/dL) 147 H Lactic Acid (0.7 - 2.1 mmol/L) 2.6 H Calcium (8.4 - 10.2 mg/dL) 10.1 Total Bilirubin (0.2 - 1.3 mg/dL) 0.9 AST (17 - 59 U/L) 31 ALT (21 - 72 U/L) 49 Alkaline Phosphatase (< 127 U/L) 69 Troponin I (<0.11 ng/ml) 0.04 Total Protein (6.3 - 8.2 g/dL) 6.5 Albumin (3.5 - 5.0 g/dL) 3.8 Globulin (1.9 - 4.2 gm/dL) 2.7 Albumin/Globulin Ratio (1.1 - 2.2 %) 1.4 Hematology CBC w Diff MAN DIFF ORDERED WBC (4.8 - 10.8 /CUMM) 14.4 H RBC (4.70 - 6.10 /CUMM) 5.64 Hgb (14.0 - 18.0 G/DL) 18.0 Hct (42 - 52 %) 53.8 H MCV (80.0 - 94.0 FL) 95.4 H MCH (27.0 - 31.0 PG) 32.0 H RDW (11.5 - 14.5 %) 14.1 Plt Count (130 - 400 /CUMM) 143 MPV (7.4 - 10.4 FL) 8.2 Gran % (42.2 - 75.2 %) 92.1 H Lymphocytes % (20.5 - 51.1 %) 2.3 L Monocytes % (1.7 - 9.3 %) 5.2 Eosinophils % (0 - 5 %) 0.3 Basophils % (0.0 - 2.0 %) 0.1 Absolute Granulocytes (1.4 - 6.5 /CUMM) 13.3 H Segmented Neutrophils (42.2 - 75.2 %) 82 H Band Neutrophils (0.0 - 5.0 %) 6 H Absolute Lymphocytes (1.2 - 3.4 /CUMM) 0.3 L Lymphocytes (20.5 - 51.1 %) 7 L Monocytes (1.7 - 9.3 %) 4 Absolute Monocytes (0.10 - 0.60 /CUMM) 0.8 H Eosinophils (0 - 5.0 %) 1 Absolute Eosinophils (0.0 - 0.7 /CUMM) 0 Absolute Basophils (0.0 - 0.2 /CUMM) 0 Platelet Estimate (ADEQUATE) ADEQUATE Normochromic RBCs VERIFIED Anisocytosis 1+ Macrocytic Cells 1+ PUBS MCHC (33.0 - 37.0 G/DL) 33.5 Serology Lyme Disease Antibody Pending Urines Urine Color (YEL,AMB,STR) YEL Urine Clarity (CLEAR) CLEAR Urine pH (5.0 - 8.0) 6.5 Ur Specific Metaline (1.001 - 1.035) 1.010 Urine Protein (NEG,<30 MG/DL) NEG Urine Ketones (NEG) NEG Urine Nitrite (NEG) NEG Urine Bilirubin (NEG) NEG Urine Urobilinogen (0.1 - 1.0 EU/dl) 0.2 Ur Leukocyte Esterase (NEG) SMALL H Ur Microscopic SEDIMENT EXAMINED Urine RBC (0 - 5 /HPF) RARE Urine WBC (0 - 2 /HPF) 1-3 H Ur Epithelial Cells (NONE,FEW) OCCAS Urine Hemoglobin (NEG) NEG Urine Glucose (N MG/DL) NEG Diagnostic Data EKG Results EKG on admission showed sinus tachycardia rate 112, old inferior and anterior myocardial infarctions. There are no acute changes. EKG this morning shows sinus rhythm at a rate of 71, first-degree AV block, old inferior and anterior myocardial infarctions and no acute changes. CXR Results PATIENT: ASHLIE RODRIGUEZ PRESENT AGE: 70 PATIENT ACCOUNT NO: [id number] : 46 LOCATION: [facility], [place] ORDERING PHYSICIAN: MOISES CARRILLO SERVICE DATE: 08/26/16 EXAM TYPE: RAD - XRY-CHEST XRAY, PA AND LATERAL EXAMINATION: XR CHEST CLINICAL INFORMATION: Cough, fever COMPARISON: Chest x-ray 07/21/2013 TECHNIQUE: 2 views of the chest were obtained. FINDINGS: Status post median sternotomy. Heart size enlarged. Pacemaker lead in right atrium and right ventricle. Lung volume low. There is mild prominence of the central vessels with prominence of the interstitial lung markings. Lung markings are accentuated by the low inspiratory effort. Underlying mild pulmonary vascular congestion not excluded. No focal dense consolidation or pleural effusion. IMPRESSION: 1. Low inspiratory effort with mild prominence of central vessels. The increased lung markings are accentuated by the low inspiration. 2. No focal consolidation. DICTATED BY: AMALIA GORDON MD DATE/TIME DICTATED:08/26/161829 [employer]:QUETA DATE/TIME TRANSCRIBED:08/26/161829 CONFIDENTIAL, DO NOT COPY WITHOUT APPROPRIATE AUTHORIZATION. <Electronically signed in Other Vendor System> SIGNED BY: AMALIA GORDON MD 08/26/161835 Assessment/Plan Assessment/Plan This patient presents with hypotension, fever and elevated white count. Likely this is an infectious etiology. However cultures are not yet completed. He did receive antibiotics in the emergency department. He is much improved over his presentation but remains on pressors. His cardiac enzymes are borderline and flat at this time but repeats are pending. This likely represents demand ischemia in the setting of hypotension. The EKG does not show any acute changes. There is no evidence of congestive heart failure on chest x-ray. I don't think there is any evidence of an acute cardiac event going on at this time. I recommend continued monitoring and EKG and troponin determinations. Fluid resuscitation and pressors are being given for his hypotension and etiology is being determined. I would recommend holding his cardiac medications for now until he is hemodynamically stable. I would watch closely for fluid overload and congestive heart failure, given the reduced left ventricular systolic function and large amount of fluids he has received. We will follow him along from a cardiac standpoint but I don't think there is any acute cardiac event at this time. Consult Acknowledgment - Thank you for your consult request.
[2016-08-27 11:51] LABS: PT 14.6 SEC (9.4-12.5)
--- NOTE | 2016-08-27 12:18 | Cons- Infect Disease ---
General Information and HPI Consulting Request Date of Consult: 08/27/16 Requested By: DAX GARBER MD Reason for Consult: Rule out sepsis Source of Information: patient, old records History of Present Illness: This is a 70-year-old man with a history of coronary artery disease, status post CABG and right coronary artery stents, peripheral vascular disease, status post aortobifemoral bypass and left subclavian angioplasty, CHF, hypertension, myotonic dystrophy, BPH, obstructive sleep apnea, on CPAP and polymyalgia rheumatica admitted on August 26 with the acute onset of dizziness, weakness and lethargy associated with urinary incontinence and shaking. On admission he was febrile to 102.4. His initial blood pressure was 105/68, but he dropped to 66 over palp. He was given 6 L of fluid in the emergency room and was then placed on Levophed. Laboratory data revealed a white blood cell count of 14,000, with 82 segs and 6 bands, BUN/creatinine 24 and 0.7, lactic acid 2.6, with normal liver enzymes, ABG 7.38/30/74 on 2 L. Urinalysis rare RBC/1-3 WBC. Chest x-ray was negative. CTA of the chest was negative. He was given Ceftriaxone and Azithromycin and admitted to the ICU. He defervesced overnight and blood pressure has improved though he remains on Levophed. At present he feels weak but denies any specific pain. He has no cough, shortness of breath or chest pain. He notes no GI or symptoms. Allergies/Medications Allergies: Coded Allergies: NO KNOWN ALLERGIES (06/24/11) Home Med List: Acetaminophen (Unknown Strength) TABLET (Unknown Dose) PO PRN PAIN (Reported) Aspirin (Ecotrin*) 81 MG TABLET.DR 1 TAB PO DAILY HEART/BLOOD (Reported) Calcium Carbonate (Calcium) (Unknown Strength) TABLET (Unknown Dose) PO DAILY SUPPLEMENT (Reported) Cholecalciferol (Vitamin D3) (Vitamin D) (Unknown Strength) TABLET (Unknown Dose) PO DAILY SUPPLEMENT (Reported) Clopidogrel Bisulfate (Clopidogrel) 75 MG TABLET 1 TAB PO DAILY BLOOD THINNER (Reported) Colestipol HCl (Colestid) 1 GRAM TABLET 4 TAB PO BID CHOLESTEROL (Reported) LAST PRESCRIBED IN 2014 Dm/P-Ephed/Acetaminoph/Doxylam ([place] Plus Cold+Flu Pkt) (Unknown Strength) POWD.PACK (Unknown Dose) PO AD COLD SYMPTOMS (Reported) Ezetimibe (Zetia) 10 MG TABLET 1 TAB PO DAILY CHOLESTEROL (Reported) Lisinopril 2.5 MG TABLET 1 TAB PO DAILY BP (Reported) Metoprolol Succinate 25 MG TAB 1 TAB PO DAILY BP/HEART (Reported) Multivitamin (Multi-Day Vitamins) 1 EACH TABLET 1 TAB PO DAILY SUPPLEMENT ( Reported) Niacinamide (Niacin) (Unknown Strength) TABLET 500 MG PO DAILY SUPPLEMENT ( Reported) Primidone (Mysoline) 50 MG TABLET 0.5 TAB PO DAILY BP (Reported) Tamsulosin HCl (Flomax) 0.4 MG CAP.ER.24H 1 CAP PO DAILY PROSTATE (Reported) Past History Travel History Traveled to [place] past 21 day No Medical History Blood Transfusion Hx: Yes Neurological: myotonic dystrophy EENT: NONE Cardiovascular: CAD (RCA stents), diastolic CHF, hyperlipidemia, myocardial infarction, PVD, systolic CHF Respiratory: obstructive sleep apnea Gastrointestinal: NONE Hepatic: NONE Renal: NONE Musculoskeletal: polymyalgia rheumatica Psychiatric: PTSD Endocrine: NONE Blood Disorders: NONE Cancer(s): NONE History of MRSA: No History of VRE: No History of CDIFF: No Isolation History: Standard Influenza Vaccine: 02/27/06 Surgical History Surgical History: CABG, pacemaker, s/p aortobifemoral bypass, s/p back surgeries, s/p left subclavian angioplasty, s/p rotator cuff surgery Family History Relations & Conditions If Any: MOTHER (HTN). Psychosocial History Where Do You Live? Home Who Do You Live With? spouse, child Services at Home: Nursing Primary Language: Armenian Smoking Status: Current Everyday Smoker ETOH Use: occasional use Illicit Drug Use: denies illicit drug use Functional Ability ADLs Independent: dressing, eating, toileting, bathing. Ambulation: independent IADLs Independent: transportation, medication admin. ECHO Results (as available) Date of last Echo 04/15/16 EF% 35 Review of Systems Review of Systems Cardiovascular: Denies: chest pain. Respiratory: Denies: cough, short of breath. GI: Denies: abdominal pain, diarrhea, nausea, vomiting. Genitourinary: Reports: no symptoms. All Other Systems: Reviewed and Negative Exam & Diagnostic Data Last 24 Hrs of Vital Signs/I&O Vital Signs Date Time Temp Pulse Resp B/P B/P Pulse O2 O2 Flow FiO2 Mean Ox Delivery Rate 08/27 1145 Nasal 3.0L Cannula 08/27 1144 96 Nasal 3.0L Cannula 08/27 0400 97 Nasal 2.0L Cannula 08/27 0158 80 20 114/57 08/27 0000 96 Nasal 2.0L Cannula 08/26 2300 98.9 88 23 91/60 94 Nasal 2.0L Cannula 08/26 2230 94 Nasal 2.0L Cannula 08/26 2150 99.7 08/26 2131 84/0 08/26 1956 100.5 95 18 60/42 96 Nasal 2.0L Cannula 08/26 1948 100 16 66/0 94 Room Air Room Air 08/26 1911 99.7 80 16 72/56 94 Nasal 2.0L Cannula 08/26 1827 100.7 08/26 1802 95 Room Air 08/26 1758 102.4 08/26 1714 102.4 110 20 105/68 91 Room Air Intake & Output 08/27 1600 08/27 0800 08/27 0000 Intake Total 638 6250 Output Total 580 850 Balance 58 5400 Intake, IV 398 6250 Intake, Oral 240 Number 0 Bowel Movements Output, Urine 580 850 Patient 193 lb Weight Weight Bed scale Measurement Method Physical Exam Other Physical Findings: He is awake and alert in no acute distress. MAXIMUM TEMPERATURE 102.4. Skin reveals no rash. HEENT exam is negative. Neck is supple with no adenopathy; right IJ triple-lumen catheter with no inflammation at the site. Lungs are clear. Heart regular rhythm with no murmur. Abdomen is soft, questionable tenderness at the right lower quadrant, with no guarding or rebound, and with positive bowel sounds. Back no CVA tenderness. Extremities mild erythema and edema over the right ankle, with tenderness medially, with full range of motion. Neuro is without focality. Last 24 Hours of Lab Results: Laboratory Tests 08/27 08/27 08/27 1110 1100 0440 Chemistry Sodium (137 - 145 mmol/L) 139 Potassium (3.5 - 5.1 mmol/L) 3.7 Chloride (98 - 107 mmol/L) 112 H Carbon Dioxide (22 - 30 mmol/L) 20 L Anion Gap (5 - 16) 7 BUN (9 - 20 mg/dL) 14 Creatinine (0.7 - 1.2 mg/dL) 0.7 Estimated GFR (>60 ml/min) > 60 Glucose (65 - 99 mg/dL) 114 H Lactic Acid (0.7 - 2.1 mmol/L) 0.7 Uric Acid (3.5 - 8.5 mg/dL) 5.8 Calcium (8.4 - 10.2 mg/dL) 8.1 L Phosphorus (2.5 - 4.5 mg/dL) 2.5 Magnesium (1.6 - 2.3 mg/dL) 1.8 Total Bilirubin (0.2 - 1.3 mg/dL) 0.6 AST (17 - 59 U/L) 41 ALT (21 - 72 U/L) 61 Troponin I (<0.11 ng/ml) Pending 0.11 *H [id number] Pept (<125 pg/mL) 4370 H Albumin (3.5 - 5.0 g/dL) 2.8 L Coagulation PT (9.4 - 12.5 SEC) 14.6 H INR (0.90 - 1.17) 1.40 H Hematology CBC w Diff MAN DIFF ORDERED WBC (4.8 - 10.8 /CUMM) 17.6 H RBC (4.70 - 6.10 /CUMM) 4.86 Hgb (14.0 - 18.0 G/DL) 15.6 Hct (42 - 52 %) 46.7 MCV (80.0 - 94.0 FL) 96.1 H MCH (27.0 - 31.0 PG) 32.2 H RDW (11.5 - 14.5 %) 14.0 Plt Count (130 - 400 /CUMM) 135 MPV (7.4 - 10.4 FL) 8.5 Gran % (42.2 - 75.2 %) 89.0 H Lymphocytes % (20.5 - 51.1 %) 4.9 L Monocytes % (1.7 - 9.3 %) 6.0 Eosinophils % (0 - 5 %) 0 Basophils % (0.0 - 2.0 %) 0.1 Absolute Granulocytes (1.4 - 6.5 /CUMM) 15.7 H Segmented Neutrophils (42.2 - 75.2 %) 85 H Band Neutrophils (0.0 - 5.0 %) 5 Absolute Lymphocytes (1.2 - 3.4 /CUMM) 0.9 L Lymphocytes (20.5 - 51.1 %) 2 L Monocytes (1.7 - 9.3 %) 8 Absolute Monocytes (0.10 - 0.60 /CUMM) 1.1 H Absolute Eosinophils (0.0 - 0.7 /CUMM) 0 Absolute Basophils (0.0 - 0.2 /CUMM) 0 Platelet Estimate (ADEQUATE) ADEQUATE Polychromasia 1+ Poikilocytosis 1+ Ovalocytes 1+ PUBS MCHC (33.0 - 37.0 G/DL) 33.5 Other Body Source Fld Total RBCs Counted (%) 100 08/26 08/26 08/26 2111 6157 2009 Blood Gas pH (7.35 - 7.45 PH) 7.38 pCO2 (35 - 45 TORR) 30 L pO2 (80 - 100 TORR) 74 L HCO3 (21 - 28 MEQ/L) 17 L ABG O2 Sat (Measured) (>96.0 %) 93.0 L Carboxyhemoglobin (1.5 - 5.0 %) 2.8 O2 Concentration % 2L Temperature (97.0 - 100.0 FARH) 98.5 O2 Delivery Method NC Chemistry Lactic Acid (0.7 - 2.1 mmol/L) 1.0 Troponin I (<0.11 ng/ml) 0.11 *H Miscellaneous Phlebotomy Draw Site RIGHT BRACHIAL 08/26 08/26 1755 1730 Chemistry Sodium (137 - 145 mmol/L) 134 L Potassium (3.5 - 5.1 mmol/L) 4.2 Chloride (98 - 107 mmol/L) 102 Carbon Dioxide (22 - 30 mmol/L) 23 Anion Gap (5 - 16) 9 BUN (9 - 20 mg/dL) 24 H Creatinine (0.7 - 1.2 mg/dL) 0.7 Estimated GFR (>60 ml/min) > 60 BUN/Creatinine Ratio (7 - 25 %) 34.3 H Glucose (65 - 99 mg/dL) 147 H Lactic Acid (0.7 - 2.1 mmol/L) 2.6 H Calcium (8.4 - 10.2 mg/dL) 10.1 Total Bilirubin (0.2 - 1.3 mg/dL) 0.9 AST (17 - 59 U/L) 31 ALT (21 - 72 U/L) 49 Alkaline Phosphatase (< 127 U/L) 69 Troponin I (<0.11 ng/ml) 0.04 Total Protein (6.3 - 8.2 g/dL) 6.5 Albumin (3.5 - 5.0 g/dL) 3.8 Globulin (1.9 - 4.2 gm/dL) 2.7 Albumin/Globulin Ratio (1.1 - 2.2 %) 1.4 Hematology CBC w Diff MAN DIFF ORDERED WBC (4.8 - 10.8 /CUMM) 14.4 H RBC (4.70 - 6.10 /CUMM) 5.64 Hgb (14.0 - 18.0 G/DL) 18.0 Hct (42 - 52 %) 53.8 H MCV (80.0 - 94.0 FL) 95.4 H MCH (27.0 - 31.0 PG) 32.0 H RDW (11.5 - 14.5 %) 14.1 Plt Count (130 - 400 /CUMM) 143 MPV (7.4 - 10.4 FL) 8.2 Gran % (42.2 - 75.2 %) 92.1 H Lymphocytes % (20.5 - 51.1 %) 2.3 L Monocytes % (1.7 - 9.3 %) 5.2 Eosinophils % (0 - 5 %) 0.3 Basophils % (0.0 - 2.0 %) 0.1 Absolute Granulocytes (1.4 - 6.5 /CUMM) 13.3 H Segmented Neutrophils (42.2 - 75.2 %) 82 H Band Neutrophils (0.0 - 5.0 %) 6 H Absolute Lymphocytes (1.2 - 3.4 /CUMM) 0.3 L Lymphocytes (20.5 - 51.1 %) 7 L Monocytes (1.7 - 9.3 %) 4 Absolute Monocytes (0.10 - 0.60 /CUMM) 0.8 H Eosinophils (0 - 5.0 %) 1 Absolute Eosinophils (0.0 - 0.7 /CUMM) 0 Absolute Basophils (0.0 - 0.2 /CUMM) 0 Platelet Estimate (ADEQUATE) ADEQUATE Normochromic RBCs VERIFIED Anisocytosis 1+ Macrocytic Cells 1+ PUBS MCHC (33.0 - 37.0 G/DL) 33.5 Serology Lyme Disease Antibody Pending Urines Urine Color (YEL,AMB,STR) YEL Urine Clarity (CLEAR) CLEAR Urine pH (5.0 - 8.0) 6.5 Ur Specific [place] (1.001 - 1.035) 1.010 Urine Protein (NEG,<30 MG/DL) NEG Urine Ketones (NEG) NEG Urine Nitrite (NEG) NEG Urine Bilirubin (NEG) NEG Urine Urobilinogen (0.1 - 1.0 EU/dl) 0.2 Ur Leukocyte Esterase (NEG) SMALL H Ur Microscopic SEDIMENT EXAMINED Urine RBC (0 - 5 /HPF) RARE Urine WBC (0 - 2 /HPF) 1-3 H Ur Epithelial Cells (NONE,FEW) OCCAS Urine Hemoglobin (NEG) NEG Urine Glucose (N MG/DL) NEG Last 24 Hours of Stefan Results: Blood cultures 2 August 27 so far negative Urine culture August 26 negative Diagnostic Data Recent Imaging Findings: Chest x-ray August 26 negative CTA of the chest August 26 negative Assessment/Plan Assessment/Plan Impression: This is a 70-year-old man with a history of coronary artery disease, peripheral vascular disease, CHF, BPH, obstructive sleep apnea and polymyalgia rheumatica admitted on August 26 with the acute onset of weakness, lethargy and dizziness, found to be febrile and hypotensive, requiring 6 L of fluid and pressors, with a leukocytosis, apparently improved this morning, with temperatures down, but with an increased white blood cell count. His clinical picture is suggestive of sepsis, with possible sources including a cellulitis over the right ankle and an intra-abdominal process, with mild, questionable right lower quadrant tenderness. He can be continued on empiric antibiotics pending further evaluation. He does have a history of polymyalgia rheumatica but his clinical picture is not consistent with a flareup of this disease. Suggestion: 1. Follow-up recent cultures 2. Elevation/warm compresses right leg 3. Consider CT of the abdomen and pelvis if right lower quadrant tenderness persists 4. Would continue Ceftriaxone 1 g IV every 24 hours pending above Consult Acknowledgment - Thank you for your consult request.
[2016-08-27 16:00] VITALS: BP 98/60
--- NOTE | 2016-08-27 20:36 | NUR ---
PT A/O X 3 NO C/O PAIN OFFERED DOES C/O FEELING WEAK. NASAL O2 AT 2L BS DIMINISHED TO L BASE. O2 SAT 94%.
[2016-08-28] VITALS: BP 101/59
[2016-08-28 05:07] LABS: ABSOLUTE BASOPHIL COUNT 0 /CUMM (0.0-0.2); ABSOLUTE EOSINOPHIL COUNT 0.2 /CUMM (0.0-0.7); ABSOLUTE LYMPH COUNT 1.1 /CUMM (1.2-3.4); ABSOLUTE MONOCYTE COUNT 0.7 /CUMM (0.10-0.60); BASOPHIL % 0.4 % (0.0-2.0); EOSINOPHIL % 1.7 % (0-5); GRANULOCYTE % 80.4 % (42.2-75.2); HEMATOCRIT 43.2 % (42-52); MEAN CORPUSCULAR HGB 32.2 PG (27.0-31.0); MEAN CORPUSCULAR HGB CONC 33.3 G/DL (33.0-37.0); MEAN CORPUSCULAR VOLUME 96.8 FL (80.0-94.0); MEAN PLATELET VOLUME 8.7 FL (7.4-10.4); PLATELET COUNT 110 /CUMM (130-400); RBC DISTRIBUTION WIDTH 14.5 % (11.5-14.5); RED BLOOD CELL CT 4.47 /CUMM (4.70-6.10)
--- NOTE | 2016-08-28 07:41 | PN- CRCU ---
RICHARD CHAU,OBED 08/28/16 0741: Subjective HPI/Critical Care Issues: Patient seen at bedside. Patient is comfortable and afebrile. No overnight events. No active complaints. Blood pressure is stable(114/60). Patient is off Levophed. Patient improved overall since yesterday. Objective Current Medications: Current Medications Sig/Yamilet Start time Last Medication Dose Route Stop Time Status Admin Acetaminophen 650 MG Q6P PRN 08/26 2100 AC PO Acetaminophen 1,000 MG Q6P PRN 08/26 2100 AC 08/28 IV 0116 Aspirin Buffered 81 MG DAILY 08/27 1000 AC 08/27 PO 1038 Ceftriaxone Sodium 1,000 MG Q24H 08/27 1405 AC IV Clopidogrel Bisulfate 75 MG DAILY 08/27 1120 DC PO Enoxaparin Sodium 40 MG DAILY 08/27 1000 AC 08/27 SC 1038 Ezetimibe 10 MG DAILY 08/27 1121 AC 08/27 PO 1547 Magnesium Oxide 400 MG ONE ONE 08/27 0900 DC 08/27 PO 08/27 0901 1038 Morphine Sulfate 0.5 MG Q4P PRN 08/26 2100 AC IV Nicotinic Acid 500 MG DAILY 08/27 1121 AC 08/27 PO 1546 Norepinephrine 4 MG Q24H 08/26 2230 DC 08/27 Sodium Chloride 250 ML IV 0158 Phosphate 250 MG ONCE ONE 08/28 0600 DC PO 08/28 0601 Potassium Chloride 40 MEQ ONCE ONE 08/27 0900 DC 08/27 PO 08/27 0901 1038 Sodium Chloride 1,000 ML .Q24H 08/26 2315 AC 08/28 IV 08/28 2314 0010 Tramadol HCl 50 MG ONCE ONE 08/27 1600 DC 08/27 PO 08/27 1601 1646 Vital Signs & I&O Last 24 Hrs of Vitals and I&O: Vital Signs Date Time Temp Pulse Resp B/P B/P Pulse O2 O2 Flow FiO2 Mean Ox Delivery Rate 08/28 0418 95 Nasal 2.0L Cannula 08/28 0000 94 Nasal 2.0L Cannula 08/28 0000 97.5 73 18 101/59 94 Nasal 2.0L Cannula 08/27 2227 72 111/61 08/27 2029 94 Nasal 2.0L Cannula 08/27 1600 98.3 74 20 98/60 95 Nasal 2.0L Cannula 08/27 1600 95 Nasal 2.0L Cannula 08/27 1200 95 Nasal 2.0L Cannula 08/27 1145 Nasal 3.0L Cannula 08/27 1144 96 Nasal 3.0L Cannula Intake & Output 08/28 1600 08/28 0800 08/28 0000 Intake Total 380 819 Output Total 600 750 Balance -220 69 Intake, IV 380 499 Intake, Oral 320 Output, Urine 600 750 Exam General Appearance: well developed/nourished, no apparent distress, alert, awake , comfortable Head: atraumatic, normal appearance Ears, Nose, Throat: normal ENT inspection Neck: normal inspection, supple, central line in place.NO SWELLING OR REDNESS To be removed soon before transferring to [facility]. Respiratory: normal breath sounds Cardiovascular: regular rate/rhythm, normal peripheral pulses Abdomen: normal bowel sounds, soft Extremities: normal inspection, normal capillary refill, 2+ pedal edema right lower leg. Neurologic/Psychiatric: awake, alert, oriented x 3, normal gait, normal mood/ affect Skin: intact, normal color Results Last 24 Hrs of Lab Results: Laboratory Tests 08/28/16 0410: Anion Gap 6, Estimated GFR > 60, Glucose 79, Calcium 8.5, Phosphorus 2.1 L, Magnesium 2.2, Total Bilirubin 0.5, AST 26, ALT 46, Albumin 2.3 L, CBC w Diff NO MAN DIFF REQ, RBC 4.47 L, MCV 96.8 H, MCH 32.2 H, RDW 14.5, MPV 8.7, Gran % 80.4 H, Lymphocytes % 11.0 L, Monocytes % 6.5, Eosinophils % 1.7, Basophils % 0.4, Absolute Granulocytes 8.0 H, Absolute Lymphocytes 1.1 L, Absolute Monocytes 0.7 H, Absolute Eosinophils 0.2, Absolute Basophils 0, PUBS MCHC 33.3 08/27/16 1110: PT 14.6 H, INR 1.40 H 08/27/16 1100: Troponin I 0.07 Impression/Plan Impression/Plan Impression/Plan: 70-year-old gentleman with past medical history of coronary artery disease s/p CABG in 1998 (4 grafts with aortobifemoral bypass 15-20 years ago), RCA with 2 drug-eluting stents, s/p left subclavian angioplasty performed for total subclavian occlusion, systolic and diastolic heart failure, hypertension, dyslipidemia, myotonic dystrophy,prostatic enlargement, obstructive sleep apnea on CPAP, PTSD, previous back surgery, current active smoker, occasional alcoholic and no illicit drug abuse came to ED with chief complaint of dizziness and generalized weakness. patient was admitted in ICU for his low blood pressure support in view of shock likely sepsis versus cardiogenic Plan Respiratory -Normal chest x-ray -Normal CTA -No signs of pneumonia ID - Blood culture negative, - Continue ceftriaxone - ID folow up CVS - Patient had non sustained VT yesterday around 10.44am. No further events. - Patient off Levophed. - Metoprolol and lisinopril withheld on day of admission. - Electrolytes repleted. - echo to be done - Cardiology advised lasix, telemetry monitoring and ID follow up to look for any septic etiology. Heme -WBC is trending down. Metabolic -Monitor electrolytes. Replete as needed Alimentary -Diet Neuro -No active issues DVT prophylaxis -Lovenox MORGAN BLEDSOE MD 08/28/16 0829: Subjective HPI/Critical Care Issues: pt seen and examined off vasopressors appears comfortable awaiting ECHO Impression/Plan Impression/Plan Recommendations: Morgan George M.D. have examined this patient, reviewed available EMR data, personally reviewed images, discussed with resident/PA/DUSTLESS OPERATOR, discussed management plan with housestaff and nursing staff, discussed managment plan all of healthcare providers, discussed management plan with patient and/or family, agreed with resident/PA/DUSTLESS OPERATOR. The past history and parts of the chart have been autopopulated. Impression 70 year old man * Admitted to the ICU for vasopressor use in setting of shock. Differential diagnosis is hypovolemic, septic, less likely cardiogenic. Plan Respiratory -no signs of pneumonia -normal CTA ID -f/u all cultures -possible UTI source -improved overall -received Ceftriaxone and Zithromax -ID consultation appreciated, currently on Ceftriaxone -wbc resolved CVS -ECHO repeat -Cardiology appreciated -off vasopressors Heme -monitor wbc, hemoglobin -on asa and plavix Metabolic -ins/outs -monitor creatinine, electrolytes, replete as needed Alimentary -diet Neuro -no active issues DVT prophyalxis - Lovenox Pain control TTS 35 min
[2016-08-28 08:00] VITALS: BP 116/66
--- NOTE | 2016-08-28 11:17 | NUR ---
PT A/O, HERNANDEZ WELL. VSS, 1AVB 60-70'S. BP 110-130'S. CVP 7. 2LNC 94%. CRACKLES IN THE BASES. NO DYSPNEA OR SOB, NO C/P. ABDOMEN SOFT, +BS. NO N/V/D. TOLERATING HHD W GOOD APPETITE. PENA CATH DC'D. PT HAS VOIDED >500 SINCE REMOVAL. IVF DC'D. PT C/O LOWER BACK BACK PAIN, 06/06. MEDICATED WITH TYLENOL IV AND REPOSITIONED TO BEDSIDE CHAIR. PT ASSISSTED BACK TO BED FOR EKG AND ECHO THEN BACK TO RECLINER. PT OFFERS NO COMPLAINTS AT THIS TIME. PHOS OF 2.1 REPLETED. PT DOWN GRADED TO TELEMETRY.
--- NOTE | 2016-08-28 11:20 | Transfer of Care Summary ---
Hospital Course Course Hospital Course: 70-year-old gentleman with past medical history of coronary artery disease status post CABG in 1998, status post left subclavian angioplasty performed for total subclavian occlusion, right coronary artery with 2 drug-eluting stents, systolic and diastolic heart failure, hypertension, dyslipidemia, prostatic enlargement, obstructive sleep apnea on CPAP, myotonic dystrophy, current smoker , occasional alcoholic came to ED with chief complaints of dizziness and generalized weakness. In the ED his temperature was 102.4, pressure low at 60 over Doppler especially rate between 80 up to 120 heart rate 90 up to 110 he was 96% saturating on 2 L Relevant labs white count of 14.4, 6 bands, H/H of 18.0/53.8, platelets of 143, MCV 95.4, electrolytes within normal limits, sodium mildly low at 134, BUN/ creatinine 24/0.7, UA showed small leukocyte esterase with 1-3 WBCs. Initial lactic acid was elevated at 2.6, came down to 1.0. Liver function tests were within normal limits. Initial set of troponin was 0.04, EKG did not show any acute ST-T wave changes, first degree heart block which is old, QTC within normal limit, sinus tachycardia. Blood cultures, urine cultures and sputum cultures were sent from the ER. She received one time of IV ceftriaxone and azithromycin while in the ER. She received total of 6 L of normal saline while in the ER. Pressure still continued to be low therefore she was started on Levophed. His blood pressure medication lisinopril and metoprolol was withheld. Patient was admitted in ICU to maintenance blood pressure with pressors in view of shock septic versus cardiogenic. Complications: * Shock most likely due to sepsis versus cardiogenic Significant Procedures: Central line placed in ED. Pertinent Lab Results: 08/28/16- Troponin trending down from 0.11 to 0.07 WBCs trended down from 14.4 -10/cumm today morning PT 14.6 INR 1.40 Sodium 137, potassium 4.2, chloride 109, carbon dioxide 22. Phosphorus 2.1 repleted today. Lyme titers pending Assessment/Plan: 70-year-old gentleman with past medical history of coronary artery disease s/p CABG in 1998 (4 grafts with aortobifemoral bypass 15-20 years ago), RCA with 2 drug-eluting stents, s/p left subclavian angioplasty performed for total subclavian occlusion, systolic and diastolic heart failure, hypertension, dyslipidemia, myotonic dystrophy,prostatic enlargement, obstructive sleep apnea on CPAP, PTSD, previous back surgery, current active smoker, occasional alcoholic and no illicit drug abuse came to ED with chief complaint of dizziness and generalized weakness. patient was admitted in ICU for his low blood pressure support in view of shock likely cardiogenic versus septic. Plan Respiratory -Normal chest x-ray -Normal CTA -No signs of pneumonia ID - Blood culture negative, - Continue ceftriaxone (D3) - ID folow up CVS - Patient had non sustained VT yesterday around 10.44am. No further events Electrolytes repleted. - Repeat echo - Cardiology advised lasix, telemetry monitoring and ID follow up to look for any septic etiology. Heme -WBC is trending down. Metabolic -Monitor electrolytes. Replete as needed. Alimentary -Diet. Neuro -No active issues. DVT prophylaxis -Lovenox
--- NOTE | 2016-08-28 11:21 | PN- Cardiology ---
Subjective Subjective: The patient is feeling better. His blood pressure has normalized. There have been no arrhythmias. He has been maintained on antibiotics. He received 8 L of fluid over the first 2 days. He is feeling swollen. His last troponin was in the normal range. ID has suggested a cellulitis or an intra-abdominal process accounting for his septic picture. Objective Vital Signs and I&Os Vital Signs Date Time Temp Pulse Resp B/P B/P Pulse O2 O2 Flow FiO2 Mean Ox Delivery Rate 08/28 08 93 Nasal 2.0L Cannula 08/28 08 97.6 66 16 116/66 94 Nasal 2.0L Cannula 08/28 0418 95 Nasal 2.0L Cannula 08/28 0000 94 Nasal 2.0L Cannula 08/28 0000 97.5 73 18 101/59 94 Nasal 2.0L Cannula 08/27 2227 72 111/61 08/27 2029 94 Nasal 2.0L Cannula 08/27 1600 98.3 74 20 98/60 95 Nasal 2.0L Cannula 08/27 1600 95 Nasal 2.0L Cannula 08/27 1200 95 Nasal 2.0L Cannula 08/27 1145 Nasal 3.0L Cannula 08/27 1144 96 Nasal 3.0L Cannula Intake & Output 08/28 1600 08/28 0800 08/28 0000 08/27 1600 08/27 0800 08/27 0000 Intake Total 380 819 330 579 4391 Output Total 600 750 750 580 850 Balance -220 69 998 31 3991 Intake, IV 380 499 929 035 3940 Intake, Oral 320 560 240 Number 0 0 Bowel Movements Output, Urine 600 750 750 580 850 Patient 193 lb Weight Weight Bed scale Measurement Method Physical Exam: He is in no distress HEENT exam is normal Chest is clear Heart reveals regular rhythm and no murmurs Extremities reveal trace to 1+ edema Current Medications: Current Medications Sig/Yamilet Start time Last Medication Dose Route Stop Time Status Admin Acetaminophen 650 MG Q6P PRN 08/26 2100 AC PO Acetaminophen 1,000 MG Q6P PRN 08/26 2100 AC 08/28 IV 0909 Aspirin Buffered 81 MG DAILY 08/27 1000 AC 08/28 PO 0910 Ceftriaxone Sodium 1,000 MG Q24H 08/27 1405 AC IV Clopidogrel Bisulfate 75 MG DAILY 08/27 1120 DC PO Enoxaparin Sodium 40 MG DAILY 08/27 1000 AC 08/28 SC 0909 Ezetimibe 10 MG DAILY 08/27 1121 AC 08/28 PO 0910 Morphine Sulfate 0.5 MG Q4P PRN 08/26 2100 DC IV Nicotinic Acid 500 MG DAILY 08/27 1121 AC 08/28 PO 0910 Norepinephrine 4 MG Q24H 08/26 2230 DC 08/27 Sodium Chloride 250 ML IV 0158 Phosphate 250 MG ONCE ONE 08/28 0600 DC 08/28 PO 08/28 0601 0907 Sodium Chloride 1,000 ML .Q24H 08/26 2315 DC 08/28 IV 08/28 2314 0010 Tramadol HCl 50 MG Q6 PRN 08/28 1000 AC PO Tramadol HCl 50 MG ONCE ONE 08/27 1600 DC 08/27 PO 08/27 1601 1646 Results Last 48 Hrs of Labs/Mics: Laboratory Tests 08/28/16 0410: Anion Gap 6, Estimated GFR > 60, Glucose 79, Calcium 8.5, Phosphorus 2.1 L, Magnesium 2.2, Total Bilirubin 0.5, AST 26, ALT 46, Albumin 2.3 L, CBC w Diff NO MAN DIFF REQ, RBC 4.47 L, MCV 96.8 H, MCH 32.2 H, RDW 14.5, MPV 8.7, Gran % 80.4 H, Lymphocytes % 11.0 L, Monocytes % 6.5, Eosinophils % 1.7, Basophils % 0.4, Absolute Granulocytes 8.0 H, Absolute Lymphocytes 1.1 L, Absolute Monocytes 0.7 H, Absolute Eosinophils 0.2, Absolute Basophils 0, PUBS MCHC 33.3 08/27/16 1110: PT 14.6 H, INR 1.40 H 08/27/16 1100: Troponin I 0.07 08/27/16 0440: Anion Gap 7, Estimated GFR > 60, Glucose 114 H, Lactic Acid 0.7, Uric Acid 5.8, Calcium 8.1 L, Phosphorus 2.5, Magnesium 1.8, Total Bilirubin 0.6, AST 41, ALT 61, Troponin I 0.11 *H, Jih-D-Cgybwcmgacy Pept 4370 H, Albumin 2.8 L, CBC w Diff MAN DIFF ORDERED, RBC 4.86, MCV 96.1 H, MCH 32.2 H, RDW 14.0, MPV 8.5, Gran % 89.0 H, Lymphocytes % 4.9 L, Monocytes % 6.0, Eosinophils % 0, Basophils % 0.1, Absolute Granulocytes 15.7 H, Segmented Neutrophils 85 H, Band Neutrophils 5, Absolute Lymphocytes 0.9 L, Lymphocytes 2 L, Monocytes 8, Absolute Monocytes 1.1 H, Absolute Eosinophils 0, Absolute Basophils 0, Platelet Estimate ADEQUATE, Polychromasia 1+, Poikilocytosis 1+, Ovalocytes 1+, PUBS MCHC 33.5, Fld Total RBCs Counted 100 08/26/16 2349: Troponin I 0.11 *H 08/26/16 2255: pH 7.38, pCO2 30 L, pO2 74 L, HCO3 17 L, ABG O2 Sat (Measured) 93.0 L, Carboxyhemoglobin 2.8, O2 Concentration % 2L, Temperature 98.5, O2 Delivery Method NC, Phlebotomy Draw Site RIGHT BRACHIAL 08/26/162009: Lactic Acid 1.0 08/26/16 1755: Urine Color YEL, Urine Clarity CLEAR, Urine pH 6.5, Ur Specific [place] 1.010, Urine Protein NEG, Urine Ketones NEG, Urine Nitrite NEG, Urine Bilirubin NEG, Urine Urobilinogen 0.2, Ur Leukocyte Esterase SMALL H, Ur Microscopic SEDIMENT EXAMINED, Urine RBC RARE, Urine WBC 1-3 H, Ur Epithelial Cells OCCAS, Urine Hemoglobin NEG, Urine Glucose NEG 08/26/16 1730: Anion Gap 9, Estimated GFR > 60, BUN/Creatinine Ratio 34.3 H, Glucose 147 H, Lactic Acid 2.6 H, Calcium 10.1, Total Bilirubin 0.9, AST 31, ALT 49, Alkaline Phosphatase 69, Troponin I 0.04, Total Protein 6.5, Albumin 3.8, Globulin 2.7, Albumin/Globulin Ratio 1.4, CBC w Diff MAN DIFF ORDERED, RBC 5.64, MCV 95.4 H, MCH 32.0 H, RDW 14.1, MPV 8.2, Gran % 92.1 H, Lymphocytes % 2.3 L, Monocytes % 5.2, Eosinophils % 0.3, Basophils % 0.1, Absolute Granulocytes 13.3 H, Segmented Neutrophils 82 H, Band Neutrophils 6 H, Absolute Lymphocytes 0.3 L, Lymphocytes 7 L, Monocytes 4, Absolute Monocytes 0.8 H, Eosinophils 1, Absolute Eosinophils 0, Absolute Basophils 0, Platelet Estimate ADEQUATE, Normochromic RBCs VERIFIED, Anisocytosis 1+, Macrocytic Cells 1+, PUBS MCHC 33.5 , Lyme Disease Antibody Pending Microbiology 08/26 2329 UPPER RESP: Surveillance Culture - COMP 08/26 2329 GI: Surveillance Culture - COMP Assessment/Plan Assessment/Plan The patient has improved hemodynamically. His elevated troponin was probably due to demand ischemia. I recommend one more day of telemetry monitoring and then it probably can be discontinued. I recommend some Lasix to reduce the fluid burden that he received initially to avoid gross congestive heart failure. I would check with infectious disease to see if an abdominal ultrasound would be useful in determining the etiology of his septic picture. I will review his echocardiogram. Continue telemetry? Yes
--- NOTE | 2016-08-28 13:35 | ECHOCARDIOGRAM REPORT ---
ASHLIE CHEUNG Age: 70 : 1945 Gender: M Exam Date: 08/28/2016 10:11 Exam Location: [facility] Ht (in): 68 Wt (lb): 193 BSA: 2.07 BP: 101 / 59 Ordering Physician: HENRY POWELL MD Referring Physician: Bala Andre MD Chief, SoC Technologist: Simran Almendarez [facility] Room Number: 112 Indications: HYPOTENSION Rhythm: Sinus Technical Quality: Good FINDINGS Left Ventricle Left ventricular cavity size at the upper limits of normal. Normal left ventricular wall thickness. The interventricular septum contracts well. The apex contracts well. The lateral huffman hypokinetic. The inferior and posterior huffman are akinetic. Left ventricular ejection fraction is estimated at 40-45 %. Abnormal relaxation filling pattern of the left ventricle for age (stage 1 diastolic dysfunction). Definity contrast was used to improve suboptimal left ventricular endocardial definition. Right Ventricle Normal right ventricular size and function. Catheter/pacemaker wire in the right ventricular cavity. Right Atrium Normal right atrial size. Catheter/pacemaker wire in the right atrial appendage. Left Atrium Mild left atrial dilatation. Mitral Valve Mild thickening/calcification of the mitral valve leaflets. Mild mitral annular calcification. Mild mitral regurgitation. Aortic Valve Focal thickening of the aortic valve cusps. No aortic stenosis. Trace aortic regurgitation. Tricuspid Valve Tricuspid valve is normal in structure and function. Mild tricuspid regurgitation. Right ventricular systolic pressure estimated to be elevated at 35-40 mmHg. Pulmonic Valve Pulmonic valve not well visualized, grossly normal. Trace pulmonic regurgitation. Pericardium No pericardial or pleural effusion. Great Vessels Normal size aortic root. CONCLUSIONS Left ventricular cavity size at the upper limits of normal. Normal left ventricular wall thickness. The interventricular septum contracts well. The apex contracts well. The lateral huffman hypokinetic. The inferior and posterior huffman are akinetic. Left ventricular ejection fraction is estimated at 40-45 %. Abnormal relaxation filling pattern of the left ventricle for age (stage 1 diastolic dysfunction). Definity contrast was used to improve suboptimal left ventricular endocardial definition. Catheter/pacemaker wire in the right ventricular cavity. Catheter/pacemaker wire in the right atrial appendage. Mild left atrial dilatation. Mild thickening/calcification of the mitral valve leaflets. Mild mitral annular calcification. Mild mitral regurgitation. Focal thickening of the aortic valve cusps. No aortic stenosis. Trace aortic regurgitation. Right ventricular systolic pressure estimated to be elevated at 35- 40 mmHg. Bala Andre M.D. (Electronically Signed) Final Date: 28 August 2016 13:34 MEASUREMENTS (Male / Female) Normal Values 2D ECHO LV Diastolic Diameter PLAX 5.7 cm 4.2 - 5.9 / 3.9 - 5.3 cm LV Systolic Diameter PLAX 4.4 cm 2.1 - 4.0 cm LV Fractional Shortening PLAX 22.8 % 25 - 46 % LV Ejection Fraction 2D Teich 45.2 % IVS Diastolic Thickness 1.0 cm LVPW Diastolic Thickness 1.0 cm LV Relative Wall Thickness 0.4 RV Internal Dim ED PLAX 3.0 cm 1.9 - 3.8 cm LVOT Diameter 2.1 cm Aortic Root Diameter 3.1 cm LA Systolic Diameter LX 4.1 cm 3.0 - 4.0 / 2.7 - 3.8 cm LA Volume 47.0 cm 18 - 58 / 22 - 52 cm Ascending Aorta Diameter 3.3 cm DOPPLER AV Peak Velocity 150.0 cm/s AV Peak Gradient 9.0 mmHg AV Mean Velocity 102.0 cm/s AV Mean Gradient 5.0 mmHg AV Velocity Time Integral 35.0 cm LVOT Peak Velocity 117.0 cm/s LVOT Peak Gradient 5.5 mmHg LVOT Mean Velocity 75.0 cm/s LVOT Mean Gradient 3.0 mmHg LVOT Velocity Time Integral 24.6 cm LVOT Stroke Volume 85.2 cm AV Area Cont Eq vti 2.4 cm AV Area Cont Eq pk 2.7 cm MV Peak Velocity 126.0 cm/s MV Peak Gradient 6.4 mmHg MV Mean Velocity 82.7 cm/s MV Mean Gradient 3.0 mmHg Mitral E Point Velocity 117.0 cm/s Mitral A Point Velocity 118.0 cm/s Mitral E to A Ratio 1.0 MV PHT Velocity 124.0 cm/s MV Deceleration Sutton 384.0 cm/s MV Pressure Half Time 96.9 ms MV Area PHT 2.3 cm MV Deceleration Time 161.0 ms TR Peak Velocity 267.0 cm/s TR Peak Gradient 28.5 mmHg Right Atrial Pressure 10.0 mmHg Pulmonary Artery Systolic Pressu 38.5 mmHg Right Ventricular Systolic Press 38.5 mmHg PV Peak Velocity 106.0 cm/s PV Peak Gradient 4.5 mmHg PV Mean Velocity 67.8 cm/s PV Mean Gradient 2.0 mmHg PV Velocity Time Integral 21.3 cm LV E' Lateral Velocity 7.6 cm/s Mitral E to LV E' Lateral Ratio 15.4 LV E' Septal Velocity 5.3 cm/s Mitral E to LV E' Septal Ratio 22.2
--- NOTE | 2016-08-28 14:02 | NUR ---
IV LASIX 20 GIVEN. PT HAS DIURESED >3000ML / 8 HRS.
[2016-08-28 16:00] VITALS: BP 143/80
--- NOTE | 2016-08-28 16:48 | NUR ---
RIJ TLC REMOVED FROM BY DR MCCARTHY. NO COMPLICATIONS.
--- NOTE | 2016-08-28 18:19 | NUR ---
TELE ROOM 174-2 AVAILABLE. REPORT CALLED TO SHNANAN KOO.
[2016-08-28 23:07] VITALS: BP 124/78
--- NOTE | 2016-08-29 06:48 | PN- Housestaff ---
THUY CHAU,SINDI 08/29/16 0647: Subjective Follow-up For: weakness, lethargy and dizziness, fever , hypotension leukocytosis cellulitis over the right ankle questionable right lower quadrant tenderness Complaints: no complaints Tele-Events Since Last Visit: ivana NSR, ist degree block, 60-70 , this morning he was single pace at 59 Subjective: the patient was examined by me this morning at bed side , he is feeling better , there have been no arrythemia, his lower limb erythema and edema improved significantly , Review of Systems Constitutional: Reports: no symptoms. EENTM: Reports: no symptoms. Cardiovascular: Reports: no symptoms. Respiratory: Reports: no symptoms. Gastrointestinal: Reports: no symptoms. Genitourinary: Reports: no symptoms. Musculoskeletal: Reports: no symptoms. Skin: Reports: no symptoms. Neurological/Psychological: Reports: no symptoms. Hematologic/Endocrine: Reports: no symptoms. Immunologic/Allergic: Reports: no symptoms. Objective Last 24 Hrs of Vital Signs/I&O Vital Signs Date Time Temp Pulse Resp B/P B/P Pulse O2 O2 Flow FiO2 Mean Ox Delivery Rate 08/29 0720 98.7 69 18 110/72 93 Room Air 08/29 0400 16 93 Room Air 08/29 0000 91 Room Air 08/28 2307 98.4 70 16 124/78 91 Room Air 08/28 1600 97 Room Air 08/28 1600 98.2 71 18 143/80 98 Room Air Room Air Intake & Output 08/29 1600 /03 0800 07/ 0000 Intake Total 110 Output Total 600 Balance -600 110 Intake, IV 10 Intake, Oral 100 Output, Urine 600 Physical Exam General Appearance: Alert, Oriented X3, Cooperative, No Acute Distress Skin: No Rashes, No Breakdown, mild erythema and edema on right lower extremity Skin Temp/Moisture Exam: Warm/Dry Sepsis Skin Exam (color): Normal for Ethnicity HEENT: Atraumatic, PERRLA, EOMI, Mucous Membr. moist/pink Neck: Supple, No LAD Cardiovascular: Regular Rate, Normal S1, Normal S2, No Murmurs Lungs: Clear to Auscultation, Normal Air Movement Abdomen: Normal Bowel Sounds, Soft Neurological: Normal Speech, Strength at 5/5 X4 Ext, Normal Tone, Sensation Intact, Cranial Nerves 3-12 NL Extremities: No Clubbing, No Cyanosis (mild right ll edema) Vascular: Normal Pulses Current Medications: Current Medications Sig/Yamilet Start time Last Medication Dose Route Stop Time Status Admin Acetaminophen 650 MG Q6P PRN 08/26 2100 AC PO Acetaminophen 1,000 MG Q6P PRN 08/26 2100 AC 08/28 IV 0909 Aspirin Buffered 81 MG DAILY 08/27 1000 AC 08/28 PO 0910 Ceftriaxone Sodium 1,000 MG Q24H 08/27 1405 AC 08/28 IV 1308 Enoxaparin Sodium 40 MG DAILY 08/27 1000 AC 08/28 SC 0909 Ezetimibe 10 MG DAILY 08/27 1121 AC 08/28 PO 0910 Furosemide 20 MG ONCE ONE 08/28 1130 DC 08/28 IV 08/28 1131 1201 Morphine Sulfate 0.5 MG Q4P PRN 08/26 2100 DC IV Nicotinic Acid 500 MG DAILY 08/27 1121 AC 08/28 PO 0910 Sodium Chloride 1,000 ML .Q24H 08/26 2315 DC 08/28 IV 08/28 2314 0010 Tramadol HCl 50 MG Q6 PRN 08/28 1000 AC PO Last 24 Hrs of Lab/Stefan Results Last 24 Hrs of Labs/Mics: Laboratory Tests 08/29/16 0625: Anion Gap 7, Estimated GFR > 60, BUN/Creatinine Ratio 21.4, CBC w Diff NO MAN DIFF REQ, RBC 5.03, MCV 95.2 H, MCH 32.4 H, RDW 13.8, MPV 8.5, Gran % 72.3, Lymphocytes % 14.1 L, Monocytes % 7.5, Eosinophils % 5.7 H, Basophils % 0.4, Absolute Granulocytes 5.2, Absolute Lymphocytes 1.0 L, Absolute Monocytes 0.5, Absolute Eosinophils 0.4, Absolute Basophils 0, PUBS MCHC 34.0 08/28/16 1700: Phosphorus Cancelled Assessment/Plan Assessment: Assessmant: This gentleman was transferred from ICU yesterday after showing remarkable improvement of his bood pressure and being hemodynamically stable , he does not have any chest pain or EKG changes suggestive of PA which made his elevated troponin level in the past few days to be most likely due to demand ischemia ratrher than pure PA, windows server architect recommended one more day of telemetry monitoring and then it probably can be discontinued, his echocardiogram showed Left ventricular ejection fraction is estimated at 40-45%, Abnormal relaxation filling pattern of the left ventricle for age (stage 1 diastolic dysfunction). problems and plan: Problem #1 hypotension most likely secondary to sepis , now recovering todays blood pressure is 110/72 * will Continue to trend white count. * will Continue to monitor vitals, intake and output, awake overnight monitor. * will DC IV ceftriaxone today, and start Augmentin 875 mg po every 12 hours to complete a seven-day course of antibiotics (until September 02) as per ID recommendation * We will hold all the antihypertensive medications for now. * will do Elevation/warm compresses right leg as per ID recommendation * will Consider CT of the abdomen and pelvis if right lower quadrant tenderness recur ( currently the patient is pain free) Problem #2 history of coronary artery disease status post CABG and drug-eluting stents. * Patient was on baby aspirin, will continue aspirin daily. * restart Plavix at 75mg daily unless and procedure is anticipated, as per cardiology recommendation Problem #3 history of hypertension. * will restart his metoprolol on low dose of 12.5 md /day as per cardiology recommendation * Problem #4 history of hyperlipidemia. * will be kept on Nicotinic acid Problem #6 history of PTSD. * We will hold off all his home medications for now, as the medication list was not confirmed. He is full code. DVT prophylaxis with Lovenox. Mild/moderate and severe pain pathway. Problem List: 1. Septic shock 2. Hypotension 3. CAD S/P BYPASS- 4 VESSELS 4. Peripheral vascular disease Pain Ratin Pain Location: N/A Pain Goal: Remain pain free Pain Plan: morphine acetaminophen Tomorrow's Labs & Rationales: BMP, CBC, patient is followed up for sepsis , follow his electrolytes as he was hypotensive DVT/Prophylaxis: pharmacological DUONG HOLDEN MD 08/29/16 2201: Attending MD Review Statement Attending Statement Attending MD Statement: examined this patient, discuss w/resident/PA/REGIONAL MAINTENANCE MANAGER, agreed w/resident/PA/REGIONAL MAINTENANCE MANAGER, reviewed EMR data (avail), discussed with case mgmt, amended to note Attending Assessment/Plan: The patient was seen and discussed with house staff. Appreciate ID/Cardiology follow-up. No obvious source of infection. Should be able to switch to po Abx tomorrow (Vantin or Augmentin) with course as outlined by ID. HR decreased to 40 's- pacer interrogated and appears to be functioning per cardiology. Note- this patient receives all of his medication from the [place] system (has no coverage from Medicare). If he is discharged will need to fax/call PCP [place] to allow her to E-prescribe in [place]. Note- the [place] pharmacy is not open tomorrow (August 30). PCP is Tracy Rodriguez APRN and he also sees Dr. Olivares in Cardiology and Marlene TORRES in Cardiology).
[2016-08-29 07:20] VITALS: BP 110/72
[2016-08-29 08:05] LABS: ABSOLUTE BASOPHIL COUNT 0 /CUMM (0.0-0.2); ABSOLUTE EOSINOPHIL COUNT 0.4 /CUMM (0.0-0.7); ABSOLUTE GRANULOCYTE CT 5.2 /CUMM (1.4-6.5); ABSOLUTE MONOCYTE COUNT 0.5 /CUMM (0.10-0.60); BASOPHIL % 0.4 % (0.0-2.0); EOSINOPHIL % 5.7 % (0-5); GRANULOCYTE % 72.3 % (42.2-75.2); HEMATOCRIT 47.9 % (42-52); MEAN CORPUSCULAR HGB 32.4 PG (27.0-31.0); MEAN CORPUSCULAR VOLUME 95.2 FL (80.0-94.0); MEAN PLATELET VOLUME 8.5 FL (7.4-10.4); PLATELET COUNT 119 /CUMM (130-400); RBC DISTRIBUTION WIDTH 13.8 % (11.5-14.5); RED BLOOD CELL CT 5.03 /CUMM (4.70-6.10); WHITE BLOOD CELL COUNT 7.2 /CUMM (4.8-10.8)
--- NOTE | 2016-08-29 08:12 | NUR ---
0630 PATIENT HAS SLEPT WELL OVERNIGHT, DENIES ANY C/O DISOMFORT, SKIN PINK, WARM AND DRY, WINDOW DRAPER CONTINUES SINUS WITH OCCASIONAL PVC AND OCCASIONAL PACED BEAT, PATIENT RESTING QUIETLY, AWAITING AM MD ROUNDS
--- NOTE | 2016-08-29 10:06 | PN- Infect Dx ---
Subjective Subjective: Afebrile without complaints Objective Last 24 Hrs of Vital Signs/I&O Vital Signs Date Time Temp Pulse Resp B/P B/P Pulse O2 O2 Flow FiO2 Mean Ox Delivery Rate 08/30 719 98.7 69 18 110/72 93 Room Air 08/29 0400 16 93 Room Air 08/29 0000 91 Room Air 08/28 2307 98.4 70 16 124/78 91 Room Air 08/28 1600 97 Room Air 08/28 1600 98.2 71 18 143/80 98 Room Air Room Air Intake & Output 08/29 1600 08/29 0800 08/29 0000 Intake Total 110 Output Total 600 Balance -600 110 Intake, IV 10 Intake, Oral 100 Output, Urine 600 Physical Exam Other Physical Findings: He appears comfortable in no acute distress Lungs scattered crackles at the bases Heart regular rhythm with no murmur Abdomen is soft, nontender with positive bowel sounds Extremities right leg swelling compared to the left, with mild tenderness on the medial aspect of his right leg above the medial malleolus, with no erythema and with full range of motion of the right ankle Results Last 24 Hours of Lab Results: Laboratory Tests 08/29 08/28 0625 1700 Chemistry Sodium (137 - 145 mmol/L) 138 Potassium (3.5 - 5.1 mmol/L) 4.0 Chloride (98 - 107 mmol/L) 108 H Carbon Dioxide (22 - 30 mmol/L) 23 Anion Gap (5 - 16) 7 BUN (9 - 20 mg/dL) 15 Creatinine (0.7 - 1.2 mg/dL) 0.7 Estimated GFR (>60 ml/min) > 60 BUN/Creatinine Ratio (7 - 25 %) 21.4 Phosphorus Cancelled Hematology CBC w Diff NO MAN DIFF REQ WBC (4.8 - 10.8 /CUMM) 7.2 RBC (4.70 - 6.10 /CUMM) 5.03 Hgb (14.0 - 18.0 G/DL) 16.3 Hct (42 - 52 %) 47.9 MCV (80.0 - 94.0 FL) 95.2 H MCH (27.0 - 31.0 PG) 32.4 H RDW (11.5 - 14.5 %) 13.8 Plt Count (130 - 400 /CUMM) 119 L MPV (7.4 - 10.4 FL) 8.5 Gran % (42.2 - 75.2 %) 72.3 Lymphocytes % (20.5 - 51.1 %) 14.1 L Monocytes % (1.7 - 9.3 %) 7.5 Eosinophils % (0 - 5 %) 5.7 H Basophils % (0.0 - 2.0 %) 0.4 Absolute Granulocytes (1.4 - 6.5 /CUMM) 5.2 Absolute Lymphocytes (1.2 - 3.4 /CUMM) 1.0 L Absolute Monocytes (0.10 - 0.60 /CUMM) 0.5 Absolute Eosinophils (0.0 - 0.7 /CUMM) 0.4 Absolute Basophils (0.0 - 0.2 /CUMM) 0 PUBS MCHC (33.0 - 37.0 G/DL) 34.0 Last 24 Hours of Stefan Results: Blood cultures 2 August 26 negative Urine culture August 26 negative Assessment/Plan Impression: Improved with temperatures and white blood cell count now normal on empiric treatment with Ceftriaxone Day 3 of treatment for possible sepsis, with no obvious source, with blood and urine cultures negative and with CTA of the chest also negative. His right ankle inflammation might suggest cellulitis, though a DVT should be ruled out. Suggestion: 1. Doppler of the right lower extremity 2. Elevation/warm compresses right leg 3. Discontinue Ceftriaxone 4. Begin Augmentin 875 mg po every 12 hours to complete a seven-day course of antibiotics (until September 02)
--- NOTE | 2016-08-29 10:27 | PN- Cardiology ---
Subjective Subjective: * No chest discomfort, shortness of breath or lightheadedness * sinus rhythm * hemodynamically stable on antibiotic therapy Objective Vital Signs and I&Os Vital Signs Date Time Temp Pulse Resp B/P B/P Pulse O2 O2 Flow FiO2 Mean Ox Delivery Rate 08/29 0720 98.7 69 18 110/72 93 Room Air 08/29 0400 16 93 Room Air 08/29 0000 91 Room Air 08/28 2307 98.4 70 16 124/78 91 Room Air 08/28 1600 97 Room Air 08/28 1600 98.2 71 18 143/80 98 Room Air Room Air Intake & Output 08/29 1600 08/29 0800 08/29 0000 08/28 1600 08/28 0800 08/28 0000 Intake Total 110 1730 380 819 Output Total 600 4020 600 750 Balance -600 110 -2290 -220 69 Intake, IV 10 190 380 499 Intake, Oral 100 1540 320 Output, Urine 600 4020 600 750 Physical Exam: General: WD/ WN male in NAD; alert and oriented x 3, decreased memory Neck: no JVD. no carotid bruit Heart : RRR w/o mumur Lungs: clear bilaterally Extremties: no edema Assessment/Plan Assessment/Plan * This patient is much improved and now appears hemodynamically stable in a sinus rhythm with no evidence of decompensated heart failure. He did have a borderline rise in cardiac enzymes in the setting of hypotension and sepsis that was likely related to increased myocardial demand. The patient is currently protected from bradycardia by his pacemaker. I would restart Metoprolol at a small dose of 12.5mg BID and restart Plavix at 75mg daily unless and procedure is anticipated. Continue telemetry? Yes
--- NOTE | 2016-08-29 12:31 | NUR ---
This RN called by telephone solicitor to report pt having episodes of bradycardia where pacemaker is not firing. Spoke to Dr Salazar who will follow up for ? pacemaker interrogation. Pt bradycardic to 40-50s and asymptomatic.
[2016-08-29 14:33] VITALS: BP 108/60
--- NOTE | 2016-08-29 15:55 | Event Note ---
Event Note Event Note: On telemetry monitoring patient is showing abnormal rhythm. I went and saw the telemetry monitoring. I contacted the [employer] company to evaluate the pacemaker. I informed Dr. [place], About the abnormal rhythm and he suggested the same [employer] called back and confirmed that the pace maker is working fine
--- NOTE | 2016-08-29 16:00 | NUR ---
NO EPISODES OF BRADYCARDIA NOTED [employer] IN TO INTEROOGATE PACER
--- NOTE | 2016-08-29 17:13 | ULTRASOUND REPORT ---
EXAMINATION: US TRIPLEX LOWER EXTREMITY, RIGHT CLINICAL INFORMATION: Edema COMPARISON: None TECHNIQUE: Color-flow triplex imaging with spectral analysis and compression Doppler were performed on the lower extremity. FINDINGS: Respiratory variation, normal compression and augmented flow are noted throughout the left lower extremity. The visualized common femoral vein, superficial femoral vein, profunda femoral vein, popliteal vein and midcalf peroneal and posterior tibial venous segments show no evidence of deep venous thrombosis. There is no Mendoza's cyst. IMPRESSION: No evidence of deep venous thrombosis involving the lower extremity.
[2016-08-30 06:40] VITALS: BP 112/70
--- NOTE | 2016-08-30 07:48 | PN- Housestaff ---
Subjective Follow-up For: weakness, lethargy and dizziness, fever , hypotension leukocytosis cellulitis over the right ankle questionable right lower quadrant tenderness Complaints: no complaints Tele-Events Since Last Visit: 60-71, SNR MT: 0.26-0.29 Subjective: the patient was examined by me this morning at bed side , he is feeling better , there have been no arrythemia, his lower limb erythema improved significantly , but still has bilateral 2+ pitting edema Review of Systems Constitutional: Denies: no symptoms. EENTM: Denies: no symptoms. Cardiovascular: Denies: no symptoms. Respiratory: Denies: no symptoms. Gastrointestinal: Denies: no symptoms. Skin: Denies: no symptoms. Objective Last 24 Hrs of Vital Signs/I&O Vital Signs Date Time Temp Pulse Resp B/P B/P Pulse O2 O2 Flow FiO2 Mean Ox Delivery Rate 08/30 0921 75 112/70 08/30 0640 98.4 63 20 112/70 92 Room Air 08/29 2127 78 98/62 08/29 1610 68 08/29 1433 98.8 76 18 108/60 92 Room Air Intake & Output 08/30 1600 08/30 0800 08/30 0000 Intake Total 120 320 Output Total 1125 250 Balance -1005 70 Intake, Oral 120 320 Output, Urine 1125 250 Physical Exam General Appearance: Alert, Oriented X3, Cooperative, No Acute Distress Skin: No Rashes, No Breakdown, No Significant Lesion Skin Temp/Moisture Exam: Warm/Dry Sepsis Skin Exam (color): Normal for Ethnicity HEENT: Atraumatic, PERRLA, EOMI Cardiovascular: Regular Rate, Normal S1, Normal S2, No Murmurs Lungs: Clear to Auscultation, Normal Air Movement Abdomen: Normal Bowel Sounds, Soft, No Tenderness Extremities: bilateral 2+ pitting edema in LL Current Medications: Current Medications Sig/Yamilet Start time Last Medication Dose Route Stop Time Status Admin Acetaminophen 650 MG Q6P PRN 08/26 2100 AC PO Acetaminophen 1,000 MG Q6P PRN 08/26 2100 AC 08/28 IV 0909 Amoxicillin/ 875 MG Q12 08/29 2200 AC 08/30 Clavulanate Potassium PO 0920 Aspirin Buffered 81 MG DAILY 08/27 1000 AC 08/30 PO 0920 Ceftriaxone Sodium 1,000 MG Q24H 08/27 1405 DC 08/28 IV 1308 Clopidogrel Bisulfate 75 MG DAILY 08/29 1327 AC 08/30 PO 0921 Enoxaparin Sodium 40 MG DAILY 08/27 1000 AC 08/30 SC 0921 Ezetimibe 10 MG DAILY 08/27 1121 AC 08/30 PO 0921 Metoprolol Tartrate 12.5 MG BID 08/29 1327 AC 08/30 PO 0921 Nicotinic Acid 500 MG DAILY 08/27 1121 AC 08/30 PO 0921 Tramadol HCl 50 MG Q6 PRN 08/28 1000 AC PO Last 24 Hrs of Lab/Stefan Results Last 24 Hrs of Labs/Mics: Laboratory Tests 08/30/16 0707: Anion Gap 5, Estimated GFR > 60, BUN/Creatinine Ratio 24.3, CBC w Diff NO MAN DIFF REQ, RBC 5.06, MCV 95.1 H, MCH 32.0 H, RDW 13.9, MPV 8.3, Gran % 61.3, Lymphocytes % 18.7 L, Monocytes % 9.6 H, Eosinophils % 10.0 H, Basophils % 0.4, Absolute Granulocytes 3.7, Absolute Lymphocytes 1.1 L, Absolute Monocytes 0.6, Absolute Eosinophils 0.6, Absolute Basophils 0, PUBS MCHC 33.6 Assessment/Plan Assessment: Assessmant: This gentleman was transferred from ICU on 08/28/16 after showing remarkable improvement of his bood pressure and being hemodynamically stable , he does not have any chest pain or EKG changes suggestive of MD which made his elevated troponin level in the past few days to be most likely due to demand ischemia ratrher than pure MD, his echocardiogram showed Left ventricular ejection fraction is estimated at 40-45%, Abnormal relaxation filling pattern of the left ventricle for age (stage 1 diastolic dysfunction), Patient remained stable was normal sinus rhythm, yesterday he was bradycardic and pacemaker were suspected to be nonfunctional [employer] were contacted and confirmed the pacemaker is working fine, Patient is stable and will most likely be discarged today after discussing it with cardiology and attending problems and plan: Problem #1 hypotension most likely secondary to sepis , now recovering todays blood pressure is 112/70 * Continue to trend white count, today its 6.1 * will Continue to monitor vitals, intake and output, 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 * continue Augmentin 875 mg po every 12 hours to complete a seven-day course of antibiotics (until September 02) as per ID recommendation( today is day 2, he only had one dose yesterday night) * will do Elevation/warm compresses right leg as per ID recommendation * Doppler ultrasound yesterday showed no DVT of lower extremity * will Consider CT of the abdomen and pelvis if right lower quadrant tenderness recur ( currently the patient is pain free) Problem #2 history of coronary artery disease status post CABG and drug-eluting stents. * Patient was on baby aspirin, will continue aspirin daily. * restart Plavix at 75mg daily unless and procedure is anticipated, as per cardiology recommendation Problem #3 history of hypertension. * will restart his metoprolol on low dose of 12.5 md /day as per cardiology recommendation Problem #4 history of hyperlipidemia. * will be kept on Nicotinic acid Problem #6 history of PTSD. * We will hold off all his home medications for now, as the medication list was not confirmed. He is full code. DVT prophylaxis with Lovenox. Mild/moderate and severe pain pathway. Problem List: 1. CAD S/P BYPASS- 4 VESSELS 2. Hypotension 3. Septic shock 4. Peripheral vascular disease Pain Ratin Pain Location: N/A Pain Goal: Remain pain free Pain Plan: TYLENOL TAB PO 650 Q6 PRN FOR PAIN SCAL 1-3 OFIRMEV IV 1000 MG Q 6 PRN FOR PAIN SCALE 4-6 Tomorrow's Labs & Rationales: N/A PATIENT WILL BE DISCHARGED DVT/Prophylaxis: pharmacological
[2016-08-30 08:06] LABS: ABSOLUTE BASOPHIL COUNT 0 /CUMM (0.0-0.2); ABSOLUTE EOSINOPHIL COUNT 0.6 /CUMM (0.0-0.7); ABSOLUTE GRANULOCYTE CT 3.7 /CUMM (1.4-6.5); ABSOLUTE LYMPH COUNT 1.1 /CUMM (1.2-3.4); ABSOLUTE MONOCYTE COUNT 0.6 /CUMM (0.10-0.60); BASOPHIL % 0.4 % (0.0-2.0); GRANULOCYTE % 61.3 % (42.2-75.2); HEMATOCRIT 48.1 % (42-52); MEAN CORPUSCULAR HGB CONC 33.6 G/DL (33.0-37.0); MEAN CORPUSCULAR VOLUME 95.1 FL (80.0-94.0); MEAN PLATELET VOLUME 8.3 FL (7.4-10.4); PLATELET COUNT 154 /CUMM (130-400); RBC DISTRIBUTION WIDTH 13.9 % (11.5-14.5); RED BLOOD CELL CT 5.06 /CUMM (4.70-6.10); WHITE BLOOD CELL COUNT 6.1 /CUMM (4.8-10.8)
--- NOTE | 2016-08-30 08:57 | Patient Discharge Instructions ---
Discharge Instructions General Discharge Information You were seen/treated for: sepsis Special Instructions: 1. please complete antibiotic course as instructed. 2. please f/u with [facility] within 1 week of discharge 3. Please f/u with Dr Montana within 1 week of discharge. Diet Recommended Diet: Heart Healthy Activity Full Activity/No Limits: Yes (as tolerated) Acute Coronary Syndrome Inclusion Criteria At DC or during hospital stay patient has or had the following: ACS DIAGNOSIS No Discharge Core Measures Meds if any: Prescribed or Continued at Discharge Meds if any: NOT Prescribed or Continued at Discharge Congestive Heart Failure Inclusion Criteria At DC or during hospital stay patient has or had the following: CHF DIAGNOSIS No Discharge Core Measures Meds if any: Prescribed or Continued at Discharge Meds if any: NOT Prescribed or Continued at Discharge Cerebrovascular accident Inclusion Criteria At DC or during hospital stay patient has or had the following: CVA/TIA Diagnosis No Discharge Core Measures Meds if any: Prescribed or Continued at Discharge Meds if any: NOT Prescribed or Continued at Discharge Venous thromboembolism Inclusion Criteria VTE Diagnosis No VTE Type NONE VTE Confirmed by (Test) NONE Discharge Core Measures - Per Current guidelines, there needs to be overlap - treatment for the first 5 days of Warfarin therapy. - If discharged on Warfarin prior to 5 days of - overlap therapy, the patient will need to be - assessed for post discharge needs including - *Post discharge parental anticoagulation - *Warfarin and/or parental anticoagulation education - *Follow up date to check INR post discharge At least 5 days overlap therapy as Inpatient No Meds if any: Prescribed or Continued at Discharge Note: Overlap Therapy is Warfarin and Anticoagulant Meds if any: NOT Prescribed or Continued at Discharge
[2016-08-30] MEDS ORDERED: CLOPIDOGREL75 M1 PO (09:04)
[2016-08-30] MEDS ORDERED: AUGMENTIN 875-1 EACH PO ×2 (09:04→11:55)
[2016-08-30] MEDS ORDERED: METOPROLOL TART25 M1 PO (09:04)
[2016-08-30 09:21] VITALS: BP 112/70
[2016-08-30] MEDS ORDERED: TOPROL XL25 M1 PO (11:56)
--- NOTE | 2016-08-30 13:57 | PN- Att Addend ---
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, agreed w/resident/PA/JEWEL CORNER BRUSHING MACHINE OPERATOR, reviewed EMR data (avail), discussed w/nursing Attending Assessment/Plan: Laboratory Tests 08/30/16 0707: Anion Gap 5, Estimated GFR > 60, BUN/Creatinine Ratio 24.3, CBC w Diff NO MAN DIFF REQ, RBC 5.06, MCV 95.1 H, MCH 32.0 H, RDW 13.9, MPV 8.3, Gran % 61.3, Lymphocytes % 18.7 L, Monocytes % 9.6 H, Eosinophils % 10.0 H, Basophils % 0.4, Absolute Granulocytes 3.7, Absolute Lymphocytes 1.1 L, Absolute Monocytes 0.6, Absolute Eosinophils 0.6, Absolute Basophils 0, PUBS MCHC 33.6 Vital Signs Date Time Temp Pulse Resp B/P B/P Pulse O2 O2 Flow FiO2 Mean Ox Delivery Rate 08/30 0921 75 112/70 08/30 0640 98.4 63 20 112/70 92 Room Air 08/29 2127 78 98/62 08/29 1610 68 08/29 1433 98.8 76 18 108/60 92 Room Air Dc home on po augmentin and we decreased the metoprolol to 12.5mg bid. see dc summary for more details.
--- NOTE | 2016-08-31 13:41 | Discharge Summary ---
Visit Information Visit Dates Admission Date: 08/26/16 Discharge Date: 08/30/16 Hospital Course Course Attending Physician: DAX GARBER Primary Care Physician: ALMA BURTON APRN [facility] Course: This gentleman was transferred from ICU on 08/28/16 after showing remarkable improvement of his bood pressure and being hemodynamically stable , he does not have any chest pain or EKG changes suggestive of MS which made his elevated troponin level in the past few days to be most likely due to demand ischemia ratrher than pure MS, his echocardiogram showed Left ventricular ejection fraction is estimated at 40-45%, Abnormal relaxation filling pattern of the left ventricle for age (stage 1 diastolic dysfunction), Patient remained stable was normal sinus rhythm, yesterday he was bradycardic and pacemaker were suspected to be nonfunctional [employer] were contacted and confirmed the pacemaker is working fine, Patient is stable and will most likely be discarged today after discussing it with cardiology and attending Problem #1 hypotension most likely secondary to sepis : patient was admitted for hypotension most likely secondary to sepis, he was suspected to have sepsis due to cellulitis ,Doppler ultrasound showed no DVT of lower extremity, he was started on ceftriaxon and then switched to augmentin, his vitals were stable and didn't have any fever or leucocytosis , his LL erythema improved significantly during his hospital stay. he was discharged on the second day of augmentin use, he was advised to Elevate/warm compresses right leg as per ID recommendati, his WBC on discharge was normal (6.1) Problem #2 history of coronary artery disease status post CABG and drug-eluting stents. * Patient was kept baby aspirin,daily, Plavix was restarted at 75mg daily unless and procedure is anticipated, as per cardiology recommendation Problem #3 history of hypertension: was kept on metoprolol on low dose of 12.5 md /day as per cardiology recommendation Problem #4 history of hyperlipidemia.was kept on Nicotinic acid Problem #6 history of PTSD. * home meds were kept off during hospital stay Allergies: Coded Allergies: NO KNOWN ALLERGIES (UNKNOWN 08/29/16) Disposition Summary Disposition Principal Diagnosis: hypotension secondary to sepi Additional Diagnosis: 1. CAD S/P BYPASS- 4 VESSELS 2. Peripheral vascular disease Discharge Disposition: home health services Discharge Instructions General Discharge Information Code Status: Full Code Patient's Diet: Heart Healthy Patient's Activity: as tolerated Follow-Up Instructions/Appts: 1. please complete antibiotic course as instructed. 2. please f/u with [facility] within 1 week of discharge 3. Please f/u with Dr Montana within 1 week of discharge. Medications at Discharge Discharge Medications: Stop taking the following medications: Metoprolol Succinate (Metoprolol Succinate) 25 MG TAB ORAL DAILY Acetaminophen (Acetaminophen) (Unknown Strength) TABLET ORAL as needed for PAIN Continue taking these medications: Ezetimibe (Zetia) 10 MG TABLET 1 Tablet ORAL DAILY Comments: Last Taken: 08/30/16 Time: 930 AM Tamsulosin HCl (Flomax) 0.4 MG CAP.ER.24H 1 Capsule ORAL DAILY Comments: NOT TAKEN Multivitamin (Multi-Day Vitamins) 1 EACH TABLET 1 Tablet ORAL DAILY Comments: Last Taken: NOT GIVEN IN HOSPITAL Time: Aspirin (Ecotrin*) 81 MG TABLET. 1 Tablet ORAL DAILY Comments: Last Taken: 08/30/16 Time: 930 AM Niacinamide (Niacin) (Unknown Strength) TABLET 500 Milligram ORAL DAILY Comments: Last Taken: 08/30/16 Time: 0930 AM Calcium Carbonate (Calcium) (Unknown Strength) TABLET Unknown Dose ORAL DAILY Comments: Last Taken: NOT GIVEN IN HOSPITAL Time: Cholecalciferol (Vitamin D3) (Vitamin D) (Unknown Strength) TABLET Unknown Dose ORAL DAILY Comments: Last Taken: NOT GIVEN IN HOSPITAL Time: Dm/P-Ephed/Acetaminoph/Doxylam (Nathalie-[place] Plus Cold+Flu Pkt) (Unknown Strength) POWD.PACK Unknown Dose ORAL As Directed Comments: Last Taken: NOT GIVEN IN HOSPITAL Time: Primidone (Mysoline) 50 MG TABLET 0.5 Tablet ORAL DAILY Comments: NOT TAKEN Colestipol HCl (Colestid) 1 GRAM TABLET 4 Tablet ORAL TWICE DAILY Instructions: LAST PRESCRIBED IN 2014 Comments: NOT TAKEN Lisinopril (Lisinopril) 2.5 MG TABLET 1 Tablet ORAL DAILY Comments: NOT TAKEN Clopidogrel Bisulfate (Clopidogrel) 75 MG TABLET 1 Tablet ORAL DAILY Days = 30 Comments: Last Taken:08/30/16 Time:0930AM This prescription has been renewed Start taking the following new medications: Metoprolol Tartrate (Metoprolol Tartrate) 25 MG TABLET 0.5 Tablet ORAL TWICE DAILY Days = 30 No Refills Comments: Last Taken:7/4/17 Time:0930 AM Amoxicillin/Potassium Clav (Augmentin 875-125 Tablet) 875 MG-125 MG TABLET 1 Tablet ORAL TWICE DAILY Qty = 7 No Refills Comments: Last Taken:08/30/16 Time:0930AM Copies To: ALMA BURTON APRN Attending MD Review Statement Documenting Attending: BETSY CHAU,JUDE Marroquin Other Findings: Agree with the above discharge plan. Please see my separate attending note for more details.
== END 2016-08-30 13:40 | disposition home health service (06) | DRG 871 ==
LOC: ERH 17:02 → 1NO 19:05 → CRI 19:05 → ERHI 19:05 → ENRESERV 21:23 → CRI 22:52 → 1NO 08-28 18:57 → ENPENDDIS 08-30 12:38 → 1NO 08-30 13:40
PROVIDERS: Internal Medicine; Internal Medicine Cardiovascular Disease; Internal Medicine Endocrinology, Diabetes & Metabolism; Physician Assistant; Student in an Organized Health Care Education/Training Program; ADMIT Internal Medicine
PROC: 4B02XSZ Measurement of Cardiac Pacemaker, External Approach (ICD-10-PCS; principal; 2016-08-26)
PROC: 02HV33Z Insertion of Infusion Device into Superior Vena Cava, Percutaneous Approach (ICD-10-PCS; 2016-08-26)
DX: A41.9 Sepsis, unspecified organism (principal); R65.21 Severe sepsis with septic shock; I24.8 Other forms of acute ischemic heart disease; I50.42 Chronic combined systolic (congestive) and diastolic (congestive) heart failure; I11.0 Hypertensive heart disease with heart failure; L03.115 Cellulitis of right lower limb; I25.10 Atherosclerotic heart disease of native coronary artery without angina pectoris; Z95.5 Presence of coronary angioplasty implant and graft; Z95.1 Presence of aortocoronary bypass graft; E78.5 Hyperlipidemia, unspecified; F43.10 Post-traumatic stress disorder, unspecified; I73.9 Peripheral vascular disease, unspecified; Z95.0 Presence of cardiac pacemaker; R00.1 Bradycardia, unspecified; H91.90 Unspecified hearing loss, unspecified ear; G71.11 Myotonic muscular dystrophy; N40.0 Benign prostatic hyperplasia without lower urinary tract symptoms; G47.33 Obstructive sleep apnea (adult) (pediatric); F17.210 Nicotine dependence, cigarettes, uncomplicated; I25.2 Old myocardial infarction; M35.3 Polymyalgia rheumatica; I44.0 Atrioventricular block, first degree
CPT/HCPCS: 1NSP; 86618; CCU; 36415; 81001; 82436; 87040; 87070; 87086; 93005; 93010; 96360; 96361; 96365; 96375; 97110-GO; 97112-GO; 97116-GO; 97161-GP; 97530-GO; 99291; C8929; J0131; J0696; J1650; J1940; J7040; Q9957

== ENCOUNTER 2016-09-14 19:10 | Inpatient (IN) | payer OTHER ==
[~2016-09-14] VITALS: Ht 172.7 cm; Wt 76.2 kg
[~2016-09-14 19:10] MED LIST changes: +AUGMENTIN 875-1 EACH PO; -CALCIUM600 M2 PO; +CALCIUM600 M3 PO; +COLESTID1 G1 PO; +METOPROLOL TART25 M1 PO; +MYSOLINE50 M1 PO; +TOPROL XL25 M1 PO
--- NOTE | 2016-09-14 19:53 | NUR ---
PER FAMILY JUST DISCHARGED S/P SEPSIS ON 08/30/16. TODAY WITH FEVER AND WEAKNESS " THINK THE SEPSIS IS BACK" SL LETHARGIC IN TRIAGE
--- NOTE | 2016-09-14 20:04 | NUR ---
URINE TRIO AND 1ST SET BLOOD CULTURES DRAWN AND SENT FROM TRIAGE. PT APPEARS ILL, AND HAS RIGORS,
--- NOTE | 2016-09-14 20:19 | ED GENERAL ADULT ---
History of Present Illness General Chief Complaint: General Adult Stated Complaint: WEAKNESS FEVER Source: patient, family, old records Exam Limitations: no limitations Vital Signs & Intake/Output Vital Signs & Intake/Output Vital Signs Date Time Temp Pulse Resp B/P B/P Pulse O2 O2 Flow FiO2 Mean Ox Delivery Rate 09/16 1505 99.3 70 18 110/60 94 Room Air 09/16 1129 73 122/70 09/16 0718 98.9 73 20 132/78 92 Room Air 09/15 2218 98.1 76 20 104/66 93 Room Air ED Intake and Output 09/16 0000 09/15 1200 Intake Total 1840 750 Output Total 2750 1350 Balance -910 -600 Intake, IV 1440 450 Intake, Oral 400 300 Number 0 Bowel Movements Output, Urine 2750 1350 Patient 168 lb Weight Weight Reported by Patient Measurement Method Allergies Coded Allergies: NO KNOWN ALLERGIES (UNKNOWN 08/29/16) Triage Note: PER FAMILY JUST DISCHARGED S/P SEPSIS ON 08/30/16. TODAY WITH FEVER AND WEAKNESS " THINK THE SEPSIS IS BACK" SL LETHARGIC IN TRIAGE Triage Nurses Notes Reviewed? yes Onset: Abrupt Duration: getting worse Timing: recent history Injury Environment: home Severity: severe Severity Numbers: 7 HPI: Patient is a 70-year-old male with a past medical history of CAD, CABG, RIGHT CORONARY STENTS, pacemaker placement, patient's green chain marker is from the MD, peripheral vascular disease status post aorto bifemoral bypass and left subclavian angioplasty, CHF, hypertension, myotonic dystrophy, BPH, obstructive sleep apnea on CPAP and polymyalgia rheumatica in which patient was admitted to [facility] to the ICU on 03/28/2016 for concerns of sepsis where patient was discharged on August 30 in which all records indicate that there was no clear etiology of patient's sepsis origin. Patient states that since his discharge for the past 2 weeks he still states that he hasn't fully recovered and regained his strength however today after waking him up from a 4 hour nap at approximately 1600 he started complaining of severe jaw is weakness and fatigue. Patient had significant difficulty ambulating to his private vehicle to presents to the emergency room due to generalized weakness Patient did not take any medications for symptoms. complaints of tactile fevers patient denies any chills headache blurred vision neck pain back pain ear pain sore throat facial droop and slurred speech, chest pain cough shortness of breath hemoptysis arm pain jaw pain palpitations diaphoresis, nausea vomiting abdominal pain dysuria hematuria skin redness Denies any pain currently Is noted through old records the patient had echocardiogram estimating EF to be 40-45%. (CAROLANN CARRILLO,MOISES) Reconcile Medications Aspirin (Ecotrin*) 81 MG TABLET.DR 1 TAB PO DAILY HEART/BLOOD (Reported) Calcium (Elemental-Fr Calcarb) (Calcium) (Unknown Strength) TABLET 1 TAB PO DAILY SUPPLEMENT (Reported) Cholecalciferol (Vitamin D3) (Vitamin D) (Unknown Strength) TABLET (Unknown Dose) PO DAILY SUPPLEMENT (Reported) Clopidogrel Bisulfate (Clopidogrel) 75 MG TABLET 1 TAB PO DAILY BLOOD THINNER Colestipol HCl (Colestid) 1 GRAM TABLET 4 TAB PO BID CHOLESTEROL (Reported) LAST PRESCRIBED IN 2014 Ezetimibe (Zetia) 10 MG TABLET 1 TAB PO DAILY CHOLESTEROL (Reported) Lisinopril 2.5 MG TABLET 1 TAB PO DAILY BP (Reported) Metoprolol Tartrate 25 MG TABLET 0.5 TAB PO BID blood pressure Multivitamin (Multi-Day Vitamins) 1 EACH TABLET 1 TAB PO DAILY SUPPLEMENT ( Reported) Niacinamide (Niacin) (Unknown Strength) TABLET 500 MG PO DAILY SUPPLEMENT ( Reported) Primidone (Mysoline) 50 MG TABLET 0.5 TAB PO DAILY BP (Reported) Tamsulosin HCl (Flomax) 0.4 MG CAP.ER.24H 1 CAP PO DAILY PROSTATE (Reported) (MICHELLE CHAU,ANETA Garcia) Past History Travel History Traveled to [place] past 21 day No Medical History Any Pertinent Medical History? see below for history Neurological: NONE EENT: NONE Cardiovascular: CAD, diastolic CHF, myocardial infarction, systolic CHF Respiratory: NONE Gastrointestinal: NONE Hepatic: NONE Renal: NONE Musculoskeletal: NONE (myotonic dystrophy) Psychiatric: NONE Endocrine: NONE Blood Disorders: NONE Cancer(s): NONE History of MRSA: No History of VRE: No History of CDIFF: No Influenza Vaccine: 02/27/06 Surgical History Surgical History: hernia repair-umbilical, femoral bypass 20 years ago, status post CABG, meniscus surgery for [id number] disc disease, recent major plasty to the right coronary artery andleft subclavian, rotator cuff surgery. Psychosocial History Who do you live with Spouse Services at Home Nursing What is your primary language Egyptian Tobacco Use: Never used Family History Family History, If Any: MOTHER (HTN). Hx Contributory? No (MOISES ZAMAN) Review of Systems Review of Systems Constitutional: Reports: see HPI, fever, weakness. EENTM: Reports: no symptoms. Respiratory: Reports: no symptoms. Cardiovascular: Reports: no symptoms. GI: Reports: no symptoms. Genitourinary: Reports: no symptoms. Musculoskeletal: Reports: no symptoms. Skin: Reports: no symptoms. Neurological/Psychological: Reports: no symptoms. Hematologic/Endocrine: Reports: no symptoms. Immunologic/Allergic: Reports: no symptoms. All Other Systems: Reviewed and Negative (MOISES ZAMAN) Physical Exam Physical Exam General Appearance: no apparent distress, comfortable Peripheral Pulses: 2+ dorsalis pedis (R), 2+ dorsalis pedis (L) Comments: Well-developed well-nourished person in no acute distress HEENT: Normal EENT exam, extraocular motion intact, no nystagmus. Pupils equally round and reactive to light and accommodation. Nose is atraumatic. External auditory canal and Tympanic membranes clear. Pharynx normal. No swelling or edema. Neck: Supple, no lymphadenopathy, normal range of motion without pain or tenderness Normal inspection full active range of motion noted Back: Nontender, no CVA tenderness. Normal inspection full active range of motion noted Cardiovascular: Regular rate and rhythms no murmurs rubs or gallops, normal JVP Respiratory: Chest nontender. No respiratory distress.breath sounds clear to auscultation bilaterally Abdomen: Soft, nontender nondistended, no appreciable organomegaly. Normal bowel sounds. No ascites Extremity: +1 bilateral lower extremity pitting edema, no calf tenderness to palpation, normal and equal pulses. Neuro: Alert oriented x3, motor sensory normal, cranial nerves II through XII grossly intact. Skin: No appreciable rash on exposed skin, skin is warm and dry. Psych: Mood and affect is normal, memory and judgment is normal. Core Measures ACS in differential dx? No CVA/TIA Diagnosis: No Severe Sepsis Present: No BC x2: Yes Lactic Acid x2: Yes IV ABX Broad Spectrum: Yes NS/LR Started: Yes Septic Shock Present: No (MOISES ZAMAN) Progress Differential Diagnoses I considered the following diagnoses in my evaluation of the patient: [Sepsis, UTI, pneumonia, otitis media, otitis externa, encephalitis, spinal abscess, discitis, cardiomyopathy, myocardial infarction, vasculitis, appendicitis, cholecystitis, cellulitis,] Plan of Care: Orders Procedure Date/time Status CBC WITHOUT DIFFERENTIAL 09/17 599 Active BASIC ELECTROLYTES PLUS BUN&CR 09/17 599 Active C-REACTIVE PROTEIN 09/16 618 Complete Nursing Misc 09/16 UNK Complete Current Medications Sig/Yamilet Start time Last Medication Dose Stop Time Status Admin Dextrose 25 GM ONCE ONE 09/16 0815 CAN (Dextrose 50%) 09/16 0816 Polyethylene Glycol 17 GM AT BEDTIME 09/15 2200 AC 09/15 (Miralax) 213 Senna/Docusate Sodium 1 TAB AT BEDTIME 09/15 2200 AC 09/15 (Senokot S) 2136 Aspirin Buffered 81 MG DAILY 09/15 1000 AC 09/16 (Ecotrin) 1129 Cholecalciferol 1,000 IU DAILY 09/15 1000 AC 09/16 (Vitamin D) 1129 Clopidogrel Bisulfate 75 MG DAILY 09/15 1000 AC 09/16 (Plavix) 1129 Enoxaparin Sodium 40 MG DAILY 09/15 1000 AC 09/16 (Lovenox) 1130 Ezetimibe 10 MG DAILY 09/15 1000 AC 09/16 (Zetia) 1129 Metoprolol Tartrate 12.5 MG BID 09/15 1000 AC 09/16 (Lopressor) 1129 Multivitamins 1 TAB DAILY 09/15 1000 AC 09/16 Therapeutic 1129 (Theragran-M Vitamins Tabs) Primidone 25 MG DAILY 09/15 1000 AC 09/16 (Mysoline 50MG. 1130 Tablet) Acetaminophen 650 MG Q6P PRN 09/15 0130 AC (Tylenol) Tramadol HCl 50 MG Q6P PRN 09/15 0130 AC (Ultram) Laboratory Tests 09/16/16 07: CBC w Diff NO MAN DIFF REQ, RBC 4.71, MCV 95.9 H, MCH 31.9 H, RDW 14.3, MPV 8.6, Gran % 59.8, Lymphocytes % 18.8 L, Monocytes % 12.0 H, Eosinophils % 9.0 H, Basophils % 0.4, Absolute Granulocytes 3.6, Absolute Lymphocytes 1.1 L, Absolute Monocytes 0.7 H, Absolute Eosinophils 0.5, Absolute Basophils 0, PUBS MCHC 33.3, ESR Westergren 10, IgE Pending 09/16/16 0619: Anion Gap 6, Estimated GFR > 60, BUN/Creatinine Ratio 26.7 H, C-Reactive Prot, Quant 6.2 H, C-React Prot High Sens > 15.0 H Patient on initial examination was alert and oriented and has no meningeal signs on exam Patient's physical exam was unremarkable however it is noted to be warm due to patient being febrile Clear lungs auscultation unremarkable ENT exam nontender abdomen Patient's blood pressure was stable upon admission Patient does have concerns of sepsis however no severe sepsis is noted or septic shock. There is no clear etiology of patient's presenting fever weakness and sepsis (MOISES ZAMAN) Diagnostic Imaging: Viewed by Me: Radiology Read. CXR Impression: no acute abnormality, no infiltrates Initial ED EKG: normal p-waves, normal QRS complex, normal sinus rhythm, 83 BPM Prior EKG: unchanged Comments: PATIENT: ASHLIE CHEUNG PRESENT AGE: 70 PATIENT ACCOUNT NO: [id number] : 46 LOCATION: [facility] ORDERING PHYSICIAN: MOISES CARRILLO SERVICE DATE: 09/14/16 EXAM TYPE: RAD - XRY-PORTABLE CHEST XRAY EXAMINATION: XR PORTABLE CHEST CLINICAL INFORMATION: Weakness. Fever. COMPARISON: Chest x-ray 08/26/2016 6:08 PM TECHNIQUE: Portable frontal view of the chest was obtained. 9:19 PM FINDINGS: Status post median sternotomy. Pacemaker lead in right atrium and right ventricle. Lung volume low with central vascular prominence and increased lung markings. These are less pronounced however than the prior chest x-ray of 08/26/2016. No focal dense consolidation. IMPRESSION: 1. Low inspiratory effort with mild central vascular prominence increased lung markings, less pronounced than the chest x-ray of 08/26/2016. 2. No focal dense consolidation. DICTATED BY: AMALIA GORDON MD DATE/TIME DICTATED:09/14/162129 (MOISES ZAMAN) Departure Departure Disposition: STILL A PATIENT Condition: Guarded Clinical Impression Primary Impression: Sepsis Secondary Impressions: Fever, Leukocytosis Referrals: ALMA BURTON APRN (PCP/Family) Departure Forms: Customer Survey General Discharge Information Admission Note Spoke With: CRESENCIO DIAS MD Documentation of Exam: Documentation of any treatments & extenuating circumstances including Concerns Regarding Discharge (functional status, medication knowledge or non-compliance, living conditions, etc.) that warrant an admission rather than observation: [ Discussed patient with Dr. DIAS who agrees with general medicine admission for concerns of sepsis with unknown etiology. Cultures are pending patient requires IV fluids and broad-spectrum antibiotics and infectious disease consultation.] (MOISES ZAMAN) PA/METAL BONDING HELPER Co-Sign Statement Statement: ED Attending supervision documentation- [X] I saw and evaluated the patient. I have also reviewed all the pertinent lab results and diagnostic results. I agree with the findings and the plan of care as documented in the PA's/METAL BONDING HELPER's documentation. [X] I have reviewed the ED Record and agree with the PA's/METAL BONDING HELPER's documentation. [] Additions or exceptions (if any) to the PAs/METAL BONDING HELPER's note and plan are summarized below: [] (MICHELLE CHAU,ANETA Garcia) Critical Care Note Critical Care Note Critical Care Time: 30-74 min (MOISES ZAMAN)
--- NOTE | 2016-09-14 21:18 | NUR ---
pt blood sent to the lab blue 2 sst,lav,blue,dueñas
[2016-09-14 21:30] LABS: ABSOLUTE BASOPHIL COUNT 0.1 /CUMM (0.0-0.2); ABSOLUTE EOSINOPHIL COUNT 0.1 /CUMM (0.0-0.7); ABSOLUTE LYMPH COUNT 0.6 /CUMM (1.2-3.4); ABSOLUTE MONOCYTE COUNT 0.9 /CUMM (0.10-0.60); BASOPHIL % 0.9 % (0.0-2.0); EOSINOPHIL % 0.8 % (0-5); HEMATOCRIT 44.5 % (42-52); MEAN CORPUSCULAR HGB 31.9 PG (27.0-31.0); MEAN CORPUSCULAR HGB CONC 33.7 G/DL (33.0-37.0); MEAN CORPUSCULAR VOLUME 94.6 FL (80.0-94.0); MEAN PLATELET VOLUME 8.2 FL (7.4-10.4); PLATELET COUNT 204 /CUMM (130-400); RBC DISTRIBUTION WIDTH 14.3 % (11.5-14.5); WHITE BLOOD CELL COUNT 12.7 /CUMM (4.8-10.8)
--- NOTE | 2016-09-14 21:35 | RADIOLOGY REPORT ---
EXAMINATION: XR PORTABLE CHEST CLINICAL INFORMATION: Weakness. Fever. COMPARISON: Chest x-ray 08/26/2016 6:08 PM TECHNIQUE: Portable frontal view of the chest was obtained. 9:19 PM FINDINGS: Status post median sternotomy. Pacemaker lead in right atrium and right ventricle. Lung volume low with central vascular prominence and increased lung markings. These are less pronounced however than the prior chest x-ray of 08/26/2016. No focal dense consolidation. IMPRESSION: 1. Low inspiratory effort with mild central vascular prominence increased lung markings, less pronounced than the chest x-ray of 08/26/2016. 2. No focal dense consolidation.
[2016-09-14 21:41] LABS: GRANULOCYTE % 86.7 % (42.2-75.2)
--- NOTE | 2016-09-14 21:46 | NUR ---
PT REPORTS RECENTLY BEING IN HOSPITAL FOR FEVERS AND CHILLS. TODAY PRESENTS WITH THE SAME STATING IT BEGAN THIS AFTERNOON. PT PLACED ON MONITOR, IV AND LABS OBTAINED. EKG COMPLETED. AT [facility]. PT HAS BAD BACK, BOUGHT IN EGG CRATE MATTRESS FOR PT. CELL FOR JACOBO IS [phone].
--- NOTE | 2016-09-15 00:06 | History & Physical ---
YOBANI CHAU,ANETA 09/15/16 0005: General Information and HPI MD Statement: I have seen and personally examined ASHLIE CHEUNG and documented this H&P. The patient is a 70 year old M who presented with a patient stated chief complaint of [weakness and fever]. 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 Pt was admitted to [facility] on 08/26-08/30/2016 for concerns of sepsis with the presumed source being cellulitis of the L leg. He was discharged home on Augmentin and finished the prescribed course. The cellulitis has cleared. Pt repots that he awoke from a nap today extremely weak, and febrile, stating that he could not even get out of bed on his own. He reports a home temperature reading of 102. He also states that he has not felt back to baseline since his discharge on 08/30 and that the weakness he felt today was worse than when he was initally admitted on his first hospitalization. Pt denies any nausea, vomiting, chills, headache,diaphoresis, blurred vision, sore throat, or change in appetite. He does report some nasal and sinus congestion. Allergies/Medications Allergies: Coded Allergies: NO KNOWN ALLERGIES (UNKNOWN 08/29/16) Home Med list Aspirin (Ecotrin*) 81 MG TABLET.DR 1 TAB PO DAILY HEART/BLOOD (Reported) Calcium (Elemental-Fr Calcarb) (Calcium) (Unknown Strength) TABLET (Unknown Dose) PO DAILY SUPPLEMENT (Reported) Cholecalciferol (Vitamin D3) (Vitamin D) (Unknown Strength) TABLET (Unknown Dose) PO DAILY SUPPLEMENT (Reported) Clopidogrel Bisulfate (Clopidogrel) 75 MG TABLET 1 TAB PO DAILY BLOOD THINNER Colestipol HCl (Colestid) 1 GRAM TABLET 4 TAB PO BID CHOLESTEROL (Reported) LAST PRESCRIBED IN 2014 Ezetimibe (Zetia) 10 MG TABLET 1 TAB PO DAILY CHOLESTEROL (Reported) Lisinopril 2.5 MG TABLET 1 TAB PO DAILY BP (Reported) Metoprolol Tartrate 25 MG TABLET 0.5 TAB PO BID blood pressure Multivitamin (Multi-Day Vitamins) 1 EACH TABLET 1 TAB PO DAILY SUPPLEMENT ( Reported) Niacinamide (Niacin) (Unknown Strength) TABLET 500 MG PO DAILY SUPPLEMENT ( Reported) Primidone (Mysoline) 50 MG TABLET 0.5 TAB PO DAILY BP (Reported) Tamsulosin HCl (Flomax) 0.4 MG CAP.ER.24H 1 CAP PO DAILY PROSTATE (Reported) Past History Travel History Traveled to [place] past 21 day No Medical History Neurological: NONE EENT: NONE Cardiovascular: CAD, diastolic CHF, myocardial infarction, systolic CHF Respiratory: NONE Gastrointestinal: NONE Hepatic: NONE Renal: NONE Musculoskeletal: NONE (myotonic dystrophy) Psychiatric: NONE Endocrine: NONE Blood Disorders: NONE Cancer(s): NONE History of MRSA: No History of VRE: No History of CDIFF: No Surgical History Surgical History: hernia repair-umbilical, femoral bypass 20 years ago, status post CABG, meniscus surgery for [id number] disc disease, recent major plasty to the right coronary artery andleft subclavian, rotator cuff surgery. Past Family/Social History Family History Relations & Conditions if any MOTHER (HTN). Psychosocial History Who Do You Live With? spouse, child Services at Home: Nursing Primary Language: Citizen [place] Functional Ability ADLs Independent: dressing, eating, toileting, bathing. Ambulation: independent IADLs Independent: transportation, medication admin. Needs Assist: shopping. Review of Systems Review of Systems Constitutional: Reports: see HPI. EENTM: Reports: see HPI. Cardiovascular: Reports: see HPI. Respiratory: Reports: see HPI. GI: Denies: abdominal pain, constipation, diarrhea. Genitourinary: Denies: dysuria, frequency, hematuria. Musculoskeletal: Reports: joint pain, muscle pain. Skin: Reports: no symptoms. Neurological/Psychological: Denies: numbness, paresthesia, tingling. Exam & Diagnostic Data Last 24 Hrs of Vital Signs/I&O Vital Signs Date Time Temp Pulse Resp B/P B/P Pulse O2 O2 Flow FiO2 Mean Ox Delivery Rate 09/15 0309 99.0 68 20 92/56 92 Room Air 09/15 0256 Room Air 09/15 0222 97.4 74 16 106/60 95 Room Air 09/14 2220 98.6 78 20 105/56 95 Room Air 09/14 2149 99.0 09/15 2147 99.0 72 20 101/55 94 Room Air 09/15 2143 94 Room Air 09/14 2049 101.8 09/14 1953 114/82 09/14 1952 101.8 77 26 88/42 92 Intake & Output 09/15 0800 09/15 0000 09/14 1600 Intake Total 2000 Output Total 600 Balance -600 2000 Intake, IV 2000 Output, Urine 600 Patient 168 lb 168 lb Weight Weight Reported by Patient Measurement Method Physical Exam General Appearance Alert, Oriented X3, Cooperative, No Acute Distress Skin No Rashes, No Breakdown, No Significant Lesion Skin Temp/Moisture Exam: Warm/Dry Sepsis Skin Exam (color): Normal for Ethnicity HEENT Atraumatic, PERRLA, EOMI, Mucous Membr. moist/pink Neck Supple, No JVD, +2 Carotid Pulse wo Bruit Lymphatic Cervical nl Cardiovascular Regular Rate, Normal S1, Normal S2, No Murmurs Lungs crackles appreciated at the L base Abdomen Soft, No Tenderness, No Hepatospenomegaly, No Masses Neurological Normal Speech, Sensation Intact, Cranial Nerves 3-12 NL Extremities No Clubbing, No Cyanosis, Normal Pulses, No Tenderness/Swelling Vascular Normal Pulses, Pulses Symmetrical Sepsis Peripheral Pulse Location: Dorsalis Pedis Sepsis Peripheral Pulse Exam: Normal Sepsis Cap Refill Exam: <2 Sec Diagnostic Data CXR Results IMPRESSION: 1. Low inspiratory effort with mild central vascular prominence increased lung markings, less pronounced than the chest x-ray of 08/26/2016. 2. No focal dense consolidation Assessment/Plan Assessment: pt is a 70 yo male with a hx of CAD, CABG with drug eluting stents placed over 20 years ago, pacemaker placement, peripheral vascular disease s/p aorto bifemoral bypass and left subclavian angioplasty, CHF, hypertension, myotonic dystrophy, BPH, obstructive sleep apnea polymyalgia rheumatica. recent previous admission to [facility] concerns of sepsis with the presumed source being cellulitis of the L leg. He was discharged home on Augmentin and finished the prescribed course. Pt repots that he awoke from a nap today extremely weak, and febrile,home temperature reading of 102. In the ED pt received 3 L NS, IV Ceftaz 1 time, IV Vanc 1 time. #Sepsis of unkown origin on presentation to the ED T101.8, BP 88/42, RR26, P77, PO2 92 on RA. Cellulitis which was the presumed cause of sepsis on previous admission has resolved. Pt never felt fully back to baseline after previous admission -admit to gen med - IVF rehydration, keeping in mind hx of CHF with EF 40-45% (echo 08/28/16) -panculture, watch off antibiotics until results - consult ID -serial ekg and troponin #Hx of CAD s/p CABG and drug eluting stent placement -c/w home meds below - ASA -plavix - metoprolol - zetia #DVT prophylaxis -lovenox #code status -full code As Ranked By This Provider Problem List: 1. CAD S/P BYPASS- 4 VESSELS 2. Fever 3. Sepsis Core Measures/Miscellaneous Acute Coronary Syndrome ACS Diagnosis: No Cerebrovascular Accident CVA/TIA Diagnosis: No Congestive Heart Failure CHF Diagnosis: Yes Date of most recent Echo: 08/28/16 Last Known EF %: 45 JOSEPHINE/ARB for EF <40%: Yes VTE (View Protocol) VTE Risk Factors: Acute medical illness, Age > 40, CHF or Resp failure No [facility] VTE prophylaxis d/t: No contraindications No VTE Pharm Prophylaxis d/t: No contraindications VTE Diagnosis: No VTE Type: NONE VTE Confirmed by (Test): NONE Sepsis (View Protocol) Severe Sepsis Present: No BC x2: Yes Lactic Acid x2: Yes IV ABX Broad Spectrum: Yes NS/LR Started: Yes Septic Shock Septic Shock Present: No BC x2: Yes Lactic Acid: Yes IV ABX Broad Spectrum: Yes Focused Exam Completed: Yes NS/LR 30ml/kg w/in 3hrs: Yes IV Vasopressors started: No Miscellaneous Documentation Attending Case D[facility]ed With: [facility] Primary Care Physician: ALMA BURTON APRN Patient sees these Specialists [place] Level of Patient Care: General Surgical Consults Needed: Consulting Specialty: Infectious Disease [facility]Z [facility]/15/16 0528: Attending MD Review Statement Attending Statement Attending MD Statement: examined this patient, discuss w/resident/PA/MULTIPLE DRUM SANDER HELPER, agreed w/resident/PA/MULTIPLE DRUM SANDER HELPER Attending Assessment/Plan: 70 yo M with h/o CAD s/p CABG and right coronary stent, PVD s/p aorto-femoral bypass and left subclavian angioplasty, BPH, first-degree AV block, polymyalgia rheumatica, ROLAND not using CPAP, combined systolic and diastolic heart failure, s /p pacemaker, recently admitted to [facility] (08/26 -08/30) for septic shock in the setting of right ankle cellulitis, returns today for c/o weakness, fatigue and fever of 102 at home. Since discharge, he has not really felt back to baseline. He denies any focal symptoms of cough, dyspnea, nausea, vomiting, abdominal pain, diarrhea or urinary symptoms. Vitals: Tmax 101.8, HR 60-80's, BP 88/42 --> 114/82 --> 106/60 --> 92/56, sats 92-95% on RA. Exam: awake, alert but lethargic, responds to questions appropriately, oriented x 3, neck supple, skin warm and dry, Chest bibasilar crackles (L>R), Heart S1S2 regular, Abd soft, NT, No obvious SSTI, LE: b/l edema +. Labs: WBC 12.7, macrocytosis, Na 134, BUN 24, glucose 112, lactic acid 1.3, trop neg, proBNP 2400, albumin 3.0. thyroid functions normal. UA clear, small LE , WBC 1-3. Lyme ab pending. CXR: low inspiratory effort with mild central vascular prominence increased lung markings, no focal consolidation. EKG: SR, 1st degree AV block, old IWMI, no acute changes. Echo (2017): EF 40-45%, stage 1 diastolic dysfunction, pulm htn. 1. SIRS, no clear source of infection and hypotension. GM admit, panculture, patient received 3 L NS bolus in the ER, will continue maintenance fluids, monitor for fluid overload given h/o CHF. Patient received IV ceftaz and Vanco in the ER. Since I do not have a clear source, will watch off antibiotics. Consult ID in AM. Serial EKG and troponin to rule out ACS. No need to repeat Echo. Hold lisinopril and tamosulosin. Please add on a urine tox screen. 2. CAD s/p CABG. Ct. Aspirin, plavix, metoprolol and zetia. DVT ppx Lovenox. Full code. TORI WILDER MD 09/15/16 0812: Resident Review Statement Resident Statement: examined this patient, discussed with healthcare administration internship, agreed with healthcare administration internship, reviewed EMR data (avail), discussed with nursing Other Findings: 70 years old male with past medical history of coronary artery disease status post CABG, stent placement, pacemaker placement, peripheral vascular disease status post angioplasty and stents, congestive heart failure, hypertension, obstructive sleep apnea not on CPAP since few years, polymyalgia rheumatica, myotonic dystrophy, degenerative joint disease, BPH, and a recent admission to [facility] discharge on 08/30/2016 for septic shock requiring ICU admission and IV pressors came into the emergency department for complaints of weakness and difficulty walking around, and fever of 102F. Patient was discharged with Augmentin which the patient complied with, but he felt that he was never back to his baseline. Since yesterday, after taking a nap he felt very weak, fatigued, and had trouble walking around. He denied any chest pain, shortness of breath, leg swelling more than usual, any fall, sick contacts, travel history. His vital signs when he came in was: Blood pressure 88/42, temperature 101.8, pulse 77, respiration 22, SPO2 92% on room air. He responded well to 2 L of normal saline bolus and his blood pressure came up to 106/60. All this time, the patient was not in distress, and was well-oriented to time, place and person. He has b/l mild pitting leg edema, otherwise normal physical findings. He also received 1 dose of vancomycin and ceftazidime in the ED. Currently, the patient is being admitted in the general medical floor for management of following issues: #Sepsis of unknown origin Patient fulfills criteria of sepsis when he came in with fever, low blood pressure, tachypnea but was responsive to IV fluids so did not have septic shock. The origin of sepsis is not obvious. * We'll follow patient off antibiotics for now pending cultures, and check for new signs/symptoms of focus of infection * If patient spikes temperature, will send cultures again and start on IV vancomycin and ceftazidime * Continue IV fluids and closely watch for changes in vital signs * Consult infectious disease service in the morning regarding workup and course of antibiotics #Will continue home medications for cardiac medical history, BPH, and other conditions. #Diet: Heart healthy diet #DVT ppx: Lovenox #Code status: Full code
--- NOTE | 2016-09-15 00:28 | NUR ---
HOUSESTAFF IN TO [facility] PT.
--- NOTE | 2016-09-15 01:04 | NUR ---
CONT TO AWAIT BED ASSIGNMENT.
--- NOTE | 2016-09-15 02:04 | NUR ---
PT GOING TO ROOM 185-1
--- NOTE | 2016-09-15 02:21 | NUR ---
REPORT GIVEN TO FRANCES, PT APPEARS MUCH BETTER THAN AT TRIAGE, ALTHOUGH SLEEPY. VSS NO FEVER
--- NOTE | 2016-09-15 03:00 | NUR ---
REPORT RECEIEVD FROM HANANE BERRY IN ED. PT ARRIVED TO UNIT VIA STRETCHER. AMBULATED FROM STRETCHER TO BED WITH 1 ASSIST, WEAK GAIT. PT AOX3, ON ROOM AIR. LUNGS CLEAR. OFF TELE. VITALS STABLE OTHER THAN BP OF 92/52. DR TORI WILDER MADE AWARE OF BP. NS INFUSING AT 75ML/HR THROUGH #20 IN RF. PT STATES HE FEELS TIRED, OTHER THAN THAT OFFERS NO COMPLAINTS. ORIENTED TO ROOM AND CALL BARNARD. WILL CONTINUE TO MONITOR.
[2016-09-15 03:09] VITALS: BP 92/56
--- NOTE | 2016-09-15 05:22 | Admission Certification ---
Admission Certification Certification Statement - As attending physician, I certify that at the time of - admission, based on clinical presentation, severity of - symptoms, need for further diagnostic testing and - therapeutic interventions, and risk of adverse outcomes - without in-hospital treatment, in my clinical assessment, - this patient requires an acute hospital stay for a minimum - of two nights or longer. I have also considered psychsocial - factors such as support system, advanced age, financial - issues, cognitive issues, and failed out-patient treatments, - past re-admission history, safety of patient, and lack of - compliance as applicable. Specific rationale supporting this admission is: Systemic inflammatory response syndrome (SIRS), hypotension that responded to IV fluids, no clear source of infection.
[2016-09-15 08:01] VITALS: BP 90/54
[2016-09-15 08:11] LABS: ABSOLUTE BASOPHIL COUNT 0 /CUMM (0.0-0.2); ABSOLUTE EOSINOPHIL COUNT 0.2 /CUMM (0.0-0.7); ABSOLUTE GRANULOCYTE CT 6.7 /CUMM (1.4-6.5); ABSOLUTE MONOCYTE COUNT 0.7 /CUMM (0.10-0.60); BASOPHIL % 0 % (0.0-2.0); EOSINOPHIL % 2.2 % (0-5); GRANULOCYTE % 77.8 % (42.2-75.2); HEMATOCRIT 42.6 % (42-52); MEAN CORPUSCULAR HGB 32.1 PG (27.0-31.0); MEAN CORPUSCULAR HGB CONC 33.7 G/DL (33.0-37.0); MEAN CORPUSCULAR VOLUME 95.1 FL (80.0-94.0); MEAN PLATELET VOLUME 8.6 FL (7.4-10.4); PLATELET COUNT 165 /CUMM (130-400); RBC DISTRIBUTION WIDTH 14.3 % (11.5-14.5); RED BLOOD CELL CT 4.48 /CUMM (4.70-6.10); WHITE BLOOD CELL COUNT 8.6 /CUMM (4.8-10.8)
[2016-09-15 10:48] VITALS: BP 90/50
[2016-09-15 11:00] VITALS: BP 104/52; BP 104/66
--- NOTE | 2016-09-15 11:55 | PN- Att Addend ---
Attending Addendum Attending Brief Note "70 yo M with h/o CAD s/p CABG and right coronary stent, PVD s/p aorto-femoral bypass and left subclavian angioplasty, BPH, first-degree AV block, polymyalgia rheumatica, ROLAND not using CPAP, combined systolic and diastolic heart failure, s /p pacemaker, recently admitted to [facility] (08/26 -08/30) for septic shock in the setting of right ankle cellulitis, returns today for c/o weakness, fatigue and fever of 102 at home. Since discharge, he has not really felt back to baseline. He denies any focal symptoms of cough, dyspnea, nausea, vomiting, abdominal pain, diarrhea or urinary symptoms. Vitals: Tmax 101.8, HR 60-80's, BP 88/42 --> 114/82 --> 106/60 --> 92/56, sats 92-95% on RA. Exam: awake, alert but lethargic, responds to questions appropriately, oriented x 3, neck supple, skin warm and dry, Chest bibasilar crackles (L>R), Heart S1S2 regular, Abd soft, NT, No obvious SSTI, LE: b/l edema +. Labs: WBC 12.7, macrocytosis, Na 134, BUN 24, glucose 112, lactic acid 1.3, trop neg, proBNP 2400, albumin 3.0. thyroid functions normal. UA clear, small LE , WBC 1-3. Lyme ab pending. CXR: low inspiratory effort with mild central vascular prominence increased lung markings, no focal consolidation. EKG: SR, 1st degree AV block, old IWMI, no acute changes. Echo (2017): EF 40-45%, stage 1 diastolic dysfunction, pulm htn. " 1. SIRS, no clear source of infection and hypotension. GM admit, panculture, patient received 3 L NS bolus in the ER, will continue maintenance fluids, monitor for fluid overload given h/o CHF. Patient received IV ceftaz and Vanco in the ER. Since I do not have a clear source, will watch off antibiotics. Consult ID in AM. Serial EKG and troponin to rule out ACS. No need to repeat Echo. Hold lisinopril and tamosulosin. Please add on a urine tox screen. 2. CAD s/p CABG. Ct. Aspirin, plavix, metoprolol and zetia. DVT ppx Lovenox. Full code. Continue plan for admitting physician, ID called, f/u ID
--- NOTE | 2016-09-15 13:01 | NUR ---
1200 - PATIENT STATES HE HAS A BURNING SENSATION TO BILATERAL PALMS OF HANDS WELL BEHIND THE EARS. INFECTIOUS DISEASE DOCTOR AT BEDSIDE AND STATED IT MAY BE A SIDE EFFECT OF AN ANTIBIOTIC GIVEN THE PREVIOUS EVENING. MD MASTERS NOTIFIED. AT THIS TIME VSS. PATIENT CALM AND IN BED.
--- NOTE | 2016-09-15 14:38 | Cons- Infect Disease ---
General Information and HPI Consulting Request Date of Consult: 09/15/16 Requested By: ELENA GABRIEL MD Reason for Consult: Fever Source of Information: patient, primary team. Exam Limitations: no limitations History of Present Illness: 70 y/o WM with h/o CAD s/p CABG and right coronary stent, PVD s/p aorto-femoral bypass and left subclavian angioplasty, BPH, first-degree AV block, polymyalgia rheumatica, ROLAND not using CPAP, combined systolic and diastolic heart failure, s /p pacemaker, recently admitted to [facility] (08/26 -08/30) for septic shock in the setting of right ankle cellulitis, returns today for c/o weakness, fatigue and fever of 102 at home. Since discharge, he has not really felt back to baseline. He denies any focal symptoms of cough, dyspnea, nausea, vomiting, abdominal pain, diarrhea or urinary symptoms. Reports skin itching; per RN also the skin redness was worse after receiving his medication today. He has persistent erythema b/l LE's. When asked how he is feeling, he answered back " you tell me'. Denies being outdoors sun tanning. Vitals previuos day: Tmax 101.8, HR 60-80's, BP 88/42 --> 114/82 --> 106/60 --> 92/56, sats 92-95% on RA. Currently feeling better; afebrile. Allergies/Medications Allergies: Coded Allergies: NO KNOWN ALLERGIES (UNKNOWN 08/29/16) Home Med List: Aspirin (Ecotrin*) 81 MG TABLET.DR 1 TAB PO DAILY HEART/BLOOD (Reported) Calcium (Elemental-Fr Calcarb) (Calcium) (Unknown Strength) TABLET (Unknown Dose) PO DAILY SUPPLEMENT (Reported) Cholecalciferol (Vitamin D3) (Vitamin D) (Unknown Strength) TABLET (Unknown Dose) PO DAILY SUPPLEMENT (Reported) Clopidogrel Bisulfate (Clopidogrel) 75 MG TABLET 1 TAB PO DAILY BLOOD THINNER Colestipol HCl (Colestid) 1 GRAM TABLET 4 TAB PO BID CHOLESTEROL (Reported) LAST PRESCRIBED IN 2014 Ezetimibe (Zetia) 10 MG TABLET 1 TAB PO DAILY CHOLESTEROL (Reported) Lisinopril 2.5 MG TABLET 1 TAB PO DAILY BP (Reported) Metoprolol Tartrate 25 MG TABLET 0.5 TAB PO BID blood pressure Multivitamin (Multi-Day Vitamins) 1 EACH TABLET 1 TAB PO DAILY SUPPLEMENT ( Reported) Niacinamide (Niacin) (Unknown Strength) TABLET 500 MG PO DAILY SUPPLEMENT ( Reported) Primidone (Mysoline) 50 MG TABLET 0.5 TAB PO DAILY BP (Reported) Tamsulosin HCl (Flomax) 0.4 MG CAP.ER.24H 1 CAP PO DAILY PROSTATE (Reported) Current Medications: Current Medications Sig/Yamilet Start time Last Medication Dose Route Stop Time Status Admin Acetaminophen 650 MG Q6P PRN 09/15 0130 AC PO Acetaminophen 0 .STK-MED ONE 09/15 2051 DC IV Acetaminophen 1,000 MG ONCE ONE 09/14 2044 DC 09/14 N/A 1 UNIT IV 09/14 Aspirin Buffered 81 MG DAILY 09/15 1000 AC 09/15 PO 1104 Ceftazidime 1,000 MG ONCE ONE 09/14 2199 DC 09/14 IV 09/14 Cholecalciferol 1,000 IU DAILY 09/15 1000 AC 09/15 PO 1105 Clopidogrel Bisulfate 75 MG DAILY 09/15 1000 AC 09/15 PO 1105 Enoxaparin Sodium 40 MG DAILY 09/15 1000 AC 09/15 SC 1104 Ezetimibe 10 MG DAILY 09/15 1000 AC 09/15 PO 1105 Metoprolol Tartrate 12.5 MG BID 09/15 1000 AC 09/15 PO 1103 Multivitamins 1 TAB DAILY 09/15 1000 AC 09/15 Therapeutic PO 1103 Nicotinic Acid 500 MG DAILY 09/15 1000 AC 09/15 PO 1105 Non-Formulary 0 SEE ADMIN CRITERIA 09/15 0345 DC Medication ANY Patient Medication 1 ED .STK-MED ONE 09/15 1402 [place] Teaching ED 09/15 1403 Polyethylene Glycol 17 GM AT BEDTIME 09/150 AC PO Primidone 25 MG DAILY 09/15 1000 AC 09/15 PO 1105 Senna/Docusate Sodium 1 TAB AT BEDTIME 09/15 2199 AC PO Sodium Chloride 1,000 ML .[id number] 09/15 0145 AC 09/15 IV 09/16 0424 0249 Sodium Chloride 1,000 ML BOLUS ONE 09/14 2199 DC 09/14 IV 09/14 2258 2158 Sodium Chloride 1,000 ML BOLUS ONE 09/14 2129 DC 09/14 IV 09/14 2228 213 Sodium Chloride 1,000 ML BOLUS ONE 09/14 2029 DC 09/14 IV 09/14 Tamsulosin HCl 0.4 MG DAILY 09/15 1000 AC 09/15 PO 1104 Tramadol HCl 50 MG Q6P PRN 09/15 0130 AC PO Vancomycin HCl 1,000 MG ONCE ONE 09/14 2199 DC 09/14 Sodium Chloride 250 ML IV 09/142 2246 Past History Travel History Traveled to [place] past 21 day No Medical History Blood Transfusion Hx: No Neurological: NONE EENT: NONE Cardiovascular: CAD, diastolic CHF, myocardial infarction, systolic CHF Respiratory: NONE Gastrointestinal: NONE Hepatic: NONE Renal: NONE Musculoskeletal: NONE (myotonic dystrophy) Psychiatric: NONE Endocrine: NONE Blood Disorders: NONE Cancer(s): NONE History of MRSA: No History of VRE: No History of CDIFF: No Isolation History: Standard Surgical History Surgical History: hernia repair-umbilical, femoral bypass 20 years ago, status post CABG, meniscus surgery for L5-[id number] disc disease, recent major plasty to the right coronary artery andleft subclavian, rotator cuff surgery. Family History Relations & Conditions If Any: MOTHER (HTN). Psychosocial History Who Do You Live With? spouse, child Services at Home: Nursing Primary Language: Nepali Smoking Status: Former Smoker Functional Ability ADLs Independent: dressing, eating, toileting, bathing. Ambulation: independent IADLs Independent: transportation, medication admin. Needs Assist: shopping. Review of Systems Comments Limited ROS as noted; 12 points reviewed. Exam & Diagnostic Data Last 24 Hrs of Vital Signs/I&O Vital Signs Date Time Temp Pulse Resp B/P B/P Pulse O2 O2 Flow FiO2 Mean Ox Delivery Rate 09/15 1113 18 92 Room Air 09/15 1104 73 90/50 09/15 1103 73 90/50 09/15 1100 104/66 09/15 1100 69 104/52 09/15 1048 90/50 09/15 0801 98.7 73 20 90/54 90 Room Air 09/15 0800 93 Room Air 09/15 0309 99.0 68 20 92/56 92 Room Air 09/15 0256 Room Air 09/15 0222 97.4 74 16 106/60 95 Room Air 09/14 2220 98.6 78 20 105/56 95 Room Air 09/14 2150 99.0 09/14 2148 99.0 72 20 101/55 94 Room Air 09/144 94 Room Air 09/14 2049 101.8 09/14 1953 114/82 09/14 1952 101.8 77 26 88/42 92 Intake & Output 09/15 1600 09/15 0800 09/15 0000 Intake Total 750 2000 Output Total 600 1350 Balance -600 -600 2000 Intake, IV 450 2000 Intake, Oral 300 Output, Urine 600 1350 Patient 168 lb 168 lb Weight Weight Reported by Patient Measurement Method Physical Exam Other Physical Findings: General Appearance Alert, Oriented X3, Cooperative, No Acute Distress Skin Generalized bright erythema involving face, chest. LE's + redness + increased warmth, no tenderness w/ palpation HEENT Atraumatic, EOMI, Mucous Membr. moist/pink Neck Supple, No JVD, +2 Carotid Pulse w/o Bruit Lymphatic No BASHIR Cardiovascular Regular Rate, Normal S1, Normal S2, No Murmur Lungs BS present, no rales Abdomen Soft, No Tenderness, No Hepatospenomegaly, No Masses Neurological Normal Speech, Sensation Intact, Cranial Nerves 3-12 NL Extremities No Clubbing, No Cyanosis, Normal Pulses, +edema LE's Vascular Normal Pulses, Pulses Symmetrical Last 24 Hours of Lab Results: Laboratory Tests 09/15 09/15 09/15 1130 0820 0631 Chemistry Sodium (137 - 145 mmol/L) 138 Potassium (3.5 - 5.1 mmol/L) 4.1 Chloride (98 - 107 mmol/L) 111 H Carbon Dioxide (22 - 30 mmol/L) 22 Anion Gap (5 - 16) 6 BUN (9 - 20 mg/dL) 16 Creatinine (0.7 - 1.2 mg/dL) 0.6 L Estimated GFR (>60 ml/min) > 60 BUN/Creatinine Ratio (7 - 25 %) 26.7 H Creatine Kinase (55 - 170 U/L) 174 H Troponin I (<0.11 ng/ml) 0.04 Hematology CBC w Diff NO MAN DIFF REQ WBC (4.8 - 10.8 /CUMM) 8.6 RBC (4.70 - 6.10 /CUMM) 4.48 L Hgb (14.0 - 18.0 G/DL) 14.4 Hct (42 - 52 %) 42.6 MCV (80.0 - 94.0 FL) 95.1 H MCH (27.0 - 31.0 PG) 32.1 H RDW (11.5 - 14.5 %) 14.3 Plt Count (130 - 400 /CUMM) 165 MPV (7.4 - 10.4 FL) 8.6 Gran % (42.2 - 75.2 %) 77.8 H Lymphocytes % (20.5 - 51.1 %) 11.6 L Monocytes % (1.7 - 9.3 %) 8.4 Eosinophils % (0 - 5 %) 2.2 Basophils % (0.0 - 2.0 %) 0 L Absolute Granulocytes (1.4 - 6.5 /CUMM) 6.7 H Absolute Lymphocytes (1.2 - 3.4 /CUMM) 1.0 L Absolute Monocytes (0.10 - 0.60 /CUMM) 0.7 H Absolute Eosinophils (0.0 - 0.7 /CUMM) 0.2 Absolute Basophils (0.0 - 0.2 /CUMM) 0 PUBS MCHC (33.0 - 37.0 G/DL) 33.7 Toxicology Urine Opiates Screen (>2000 NG/ML) < 100.00 Methadone Screen (>300 NG/ML) < 40 Barbiturate Screen (>200 NG/ML) 70 Ur Phencyclidine Scrn (>25 NG/ML) < 6.00 Amphetamines Screen (>1000 NG/ML) < 100 U Benzodiazepines Scrn (>200 NG/ML) < 85 Urine Cocaine Screen (>300 NG/ML) < 50 Urine Cannabis Screen (>50 NG/ML) < 5.00 09/14 09/14 09/14 2322 2115 2115 Chemistry Sodium (137 - 145 mmol/L) 134 L Potassium (3.5 - 5.1 mmol/L) 4.1 Chloride (98 - 107 mmol/L) 105 Carbon Dioxide (22 - 30 mmol/L) 22 Anion Gap (5 - 16) 7 BUN (9 - 20 mg/dL) 24 H Creatinine (0.7 - 1.2 mg/dL) 0.7 Estimated GFR (>60 ml/min) > 60 BUN/Creatinine Ratio (7 - 25 %) 34.3 H Glucose (65 - 99 mg/dL) 112 H Lactic Acid (0.7 - 2.1 mmol/L) Cancelled 1.3 Calcium (8.4 - 10.2 mg/dL) 9.1 Magnesium (1.6 - 2.3 mg/dL) 2.1 Total Bilirubin (0.2 - 1.3 mg/dL) 0.4 AST (17 - 59 U/L) 27 ALT (21 - 72 U/L) 37 Alkaline Phosphatase (< 127 U/L) 71 Troponin I (<0.11 ng/ml) 0.04 Ufi-[id number] Pept (<125 pg/mL) 2400 H Total Protein (6.3 - 8.2 g/dL) 5.3 L Albumin (3.5 - 5.0 g/dL) 3.0 L Globulin (1.9 - 4.2 gm/dL) 2.3 Albumin/Globulin Ratio (1.1 - 2.2 %) 1.3 TSH (0.270 - 4.200 uIU/mL) 0.866 Free T4 (0.78 - 2.44 ng/dL) 0.98 Hematology CBC w Diff NO MAN DIFF REQ WBC (4.8 - 10.8 /CUMM) 12.7 H RBC (4.70 - 6.10 /CUMM) 4.70 Hgb (14.0 - 18.0 G/DL) 15.0 Hct (42 - 52 %) 44.5 MCV (80.0 - 94.0 FL) 94.6 H MCH (27.0 - 31.0 PG) 31.9 H RDW (11.5 - 14.5 %) 14.3 Plt Count (130 - 400 /CUMM) 204 MPV (7.4 - 10.4 FL) 8.2 Gran % (42.2 - 75.2 %) 86.7 H Lymphocytes % (20.5 - 51.1 %) 4.7 L Monocytes % (1.7 - 9.3 %) 6.9 Eosinophils % (0 - 5 %) 0.8 Basophils % (0.0 - 2.0 %) 0.9 Absolute Granulocytes (1.4 - 6.5 /CUMM) 11.0 H Absolute Lymphocytes (1.2 - 3.4 /CUMM) 0.6 L Absolute Monocytes (0.10 - 0.60 /CUMM) 0.9 H Absolute Eosinophils (0.0 - 0.7 /CUMM) 0.1 Absolute Basophils (0.0 - 0.2 /CUMM) 0.1 PUBS MCHC (33.0 - 37.0 G/DL) 33.7 Serology Lyme Disease Antibody (RATIO) 0.09 09/15 1999 Urines Urine Color (YEL,AMB,STR) STRAW Urine Clarity (CLEAR) CLEAR Urine pH (5.0 - 8.0) 6.5 Ur Specific [place] (1.001 - 1.035) 1.015 Urine Protein (NEG,<30 MG/DL) NEG Urine Ketones (NEG) NEG Urine Nitrite (NEG) NEG Urine Bilirubin (NEG) NEG Urine Urobilinogen (0.1 - 1.0 EU/dl) 0.2 Ur Leukocyte Esterase (NEG) SMALL H Ur Microscopic SEDIMENT EXAMINED Urine RBC (0 - 5 /HPF) 1-3 Urine WBC (0 - 2 /HPF) 1-3 H Urine Bacteria (NEG/NONE) RARE H Urine Hemoglobin (NEG) NEG Urine Glucose (N MG/DL) NEG Last 24 Hours of Stefan Results: SPEC #: [id number] VIJI: 09/14/16 STATUS: RES RECD: 09/14/[address]: MOISES ZAMAN SOURCE: BLOOD ENTR: 09/14/[address] [facility] [address]: ALMA BURTON APRN SPDESC: 2ND/VENOUS ORDERED: BLOOD CULTURE Procedure Result > BLOOD CULTURE REPORT Preliminary 09/15/16 No growth after 1 day incubation. Specimen is examined continuously for 5 days before final report unless culture becomes positive. Diagnostic Data Recent Imaging Findings: SERVICE DATE: 09/14/16 EXAM TYPE: RAD - XRY-PORTABLE CHEST XRAY EXAMINATION: XR PORTABLE CHEST CLINICAL INFORMATION: Weakness. Fever. COMPARISON: Chest x-ray 08/26/2016 6:08 PM TECHNIQUE: Portable frontal view of the chest was obtained. 9:19 PM FINDINGS: Status post median sternotomy. Pacemaker lead in right atrium and right ventricle. Lung volume low with central vascular prominence and increased lung markings. These are less pronounced however than the prior chest x-ray of 08/26/2016. No focal dense consolidation. IMPRESSION: 1. Low inspiratory effort with mild central vascular prominence increased lung markings, less pronounced than the chest x-ray of 08/26/2016. 2. No focal dense consolidation. Assessment/Plan Assessment/Plan Impression: 70 y/o WM with h/o CAD s/p CABG and right coronary stent, PVD s/p aorto-femoral bypass and left subclavian angioplasty, BPH, first-degree AV block, polymyalgia rheumatica, ROLAND not using CPAP, combined systolic and diastolic heart failure, s /p pacemaker, recently admitted to [facility] (08/26 -08/30) for septic shock in the setting of right ankle cellulitis readmitted 09/14/16. SIRS of unclear etiology Fever resolved (? dehydration) Skin diffuse erythema (eval allergic reaction to iv vancomycin or side effect to niacin) Posibble residual LE's cellulitis Suggestion: 1. Observe off antibiotics. 2. If recurrent fever repeat BCx2. 3. CBC, BMP, ESR, CRP in am. 4. Check Ig E level. Consult Acknowledgment - Thank you for your consult request.
[2016-09-15 14:40] VITALS: BP 98/62
[2016-09-15 22:18] VITALS: BP 104/66
--- NOTE | 2016-09-16 07:11 | PN- Housestaff ---
GUERRERO SEGURA 09/16/16 0711: Subjective Follow-up For: fever of unknown origin Complaints: no complaints Subjective: Seen and examined patient offers no complaints. Denies fever, chills. Is able to walk independently to the bathroom and states that his appetite is at baseline. Review of Systems Constitutional: Denies: chills, diaphoresis, fever, malaise, weakness, unexplained weight loss. Cardiovascular: Denies: chest pain, edema, orthopena, palpitations, peripheral edema, syncope. Respiratory: Denies: cough, hemoptysis, orthopnea, short of breath, sputum production, stridor, wheezing. Gastrointestinal: Reports: constipation. Denies: abdominal pain, bloating, diarrhea, distention, bowel incontinence, melena, nausea, bloody stool, changes in stool, vomiting, steatorrhea. Genitourinary: Denies: discharge, dysuria, frequency, hematuria, hesitation, nocturia, pain, urgency. Objective Last 24 Hrs of Vital Signs/I&O Vital Signs Date Time Temp Pulse Resp B/P B/P Pulse O2 O2 Flow FiO2 Mean Ox Delivery Rate 09/16 0718 98.9 73 20 132/78 92 Room Air 09/15 2218 98.1 76 20 104/66 93 Room Air 09/15 1440 99.0 73 18 98/62 93 Room Air 09/15 1130 18 93 Room Air 09/15 1113 18 92 Room Air 09/15 1104 66 104/52 09/15 1103 73 90/50 09/15 1100 104/66 09/15 1100 69 104/52 09/15 1048 90/50 Intake & Output 09/16 1600 09/16 0800 09/16 0000 Intake Total 700 1000 Output Total 1450 1100 Balance -750 -100 Intake, IV 500 600 Intake, Oral 200 400 Number 0 Bowel Movements Output, Urine 1450 1100 Physical Exam General Appearance: Alert, Oriented X3, Cooperative, No Acute Distress Cardiovascular: Regular Rate, Normal S1, Normal S2 Lungs: Clear to Auscultation, Normal Air Movement Abdomen: Normal Bowel Sounds, Soft, No Tenderness Current Medications: Current Medications Sig/Yamilet Start time Last Medication Dose Route Stop Time Status Admin Acetaminophen 650 MG Q6P PRN 09/15 0130 AC PO Aspirin Buffered 81 MG DAILY 09/15 1000 AC 09/15 PO 1104 Cholecalciferol 1,000 IU DAILY 09/15 1000 AC 09/15 PO 1105 Clopidogrel Bisulfate 75 MG DAILY 09/15 1000 AC 09/15 PO 1105 Dextrose 25 GM ONCE ONE 09/16 0815 CAN IV 09/16 0816 Enoxaparin Sodium 40 MG DAILY 09/15 1000 AC 09/15 SC 1104 Ezetimibe 10 MG DAILY 09/15 1000 AC 09/15 PO 1105 Metoprolol Tartrate 12.5 MG BID 09/15 1000 AC 09/15 PO 1103 Multivitamins 1 TAB DAILY 09/15 1000 AC 09/15 Therapeutic PO 1103 Nicotinic Acid 500 MG DAILY 09/15 1000 AC 09/15 PO 1105 Patient Medication 1 ED .STK-MED ONE 09/15 1402 [place] Teaching ED 09/15 1403 Polyethylene Glycol 17 GM AT BEDTIME 09/15 2200 AC 09/15 PO 2136 Primidone 25 MG DAILY 09/15 1000 AC 09/15 PO 1105 Senna/Docusate Sodium 1 TAB AT BEDTIME 09/15 2200 AC 09/15 PO 2136 Sodium Chloride 1,000 ML .[id number] 09/15 0145 DC 09/15 IV 09/16 0424 1706 Tamsulosin HCl 0.4 MG DAILY 09/15 1000 DC 09/15 PO 1104 Tramadol HCl 50 MG Q6P PRN 09/15 0130 AC PO Last 24 Hrs of Lab/Stefan Results Last 24 Hrs of Labs/Mics: Laboratory Tests 09/16/16 0713: CBC w Diff Pending, WBC Pending, RBC Pending, Hgb Pending, Hct Pending, MCV Pending, MCH Pending, RDW Pending, Plt Count Pending, MPV Pending, PUBS MCHC Pending, ESR Westergren Pending, IgE Pending 09/16/16 0619: Sodium Pending, Potassium Pending, Chloride Pending, Carbon Dioxide Pending, Anion Gap Pending, BUN Pending, Creatinine Pending, BUN/Creatinine Ratio Pending , C-React Prot High Sens Pending 09/15/16 1130: Urine Opiates Screen < 100.00, Methadone Screen < 40, Barbiturate Screen 70, Ur Phencyclidine Scrn < 6.00, Amphetamines Screen < 100, U Benzodiazepines Scrn < 85, Urine Cocaine Screen < 50, Urine Cannabis Screen < 5.00 Assessment/Plan Assessment: 70 year old gentleman with h/o CAD s/p CABG and right coronary stent, PVD s/p aorto-femoral bypass and left subclavian angioplasty, BPH, first-degree AV block , ROLAND not using CPAP, combined systolic and diastolic heart failure, s/p pacemaker, recently admitted to [place] (08/26 -08/30) for septic shock in the setting of right ankle cellulitis, current admission for continuing weakness, fatigue and fever of 102 at home. assessment and plan: Fever of unknown origin: unclear etiology at this time. possibly drug induced. IgE pending will discontinue possible causes: Tamsulosin and Niacin his PCP was informed as will as his of the change Hypertension continue metoprolol and restart lisinopril upon discharge. BPH will discontinue tamsulosin Peripheral vascular disease continue with aspirin and plavix Hyperlipidemia DVT prophylaxis with subcutaneous Lovenox Problem List: 1. Fever 2. Leukocytosis 3. Peripheral vascular disease Pain Ratin Pain Location: na Pain Goal: Pain 4 or less Pain Plan: current regimen Tomorrow's Labs & Rationales: cbc/bep Consulting Request: Consulting Specialty: Infectious Disease ELENA GABRIEL 09/16/16 1255: Attending MD Review Statement Attending Statement Attending MD Statement: examined this patient, discuss w/resident/PA/CHIEF CLERK, agreed w/resident/PA/CHIEF CLERK, discussed with family, reviewed EMR data (avail), discussed with nursing, discussed with case mgmt, reviewed images, amended to note Attending Assessment/Plan: 70 o/m with extensive cardiac history in past, PVD in past, BPH, chf s/p pacemaker, readmited for fever of unexpalined origin, Patient had extensive w/u 2 weeks ago including CTA chest negative for clots, infections, tumors. USG b/l lower extremity negative for clots. Patient has elevated CRP with leukocytosis which resolved on its own. ID is consulted during this admission which recommend to observe off abx and watch for sign/symptoms. updated about the plan. Continue follow ID and monitor hemodynamcis, d/salvador tamsulosin and niacin today possible allergic reaction. gi/dvt prophyalxis
[2016-09-16 07:18] VITALS: BP 132/78
[2016-09-16 08:29] LABS: ABSOLUTE BASOPHIL COUNT 0 /CUMM (0.0-0.2); ABSOLUTE EOSINOPHIL COUNT 0.5 /CUMM (0.0-0.7); ABSOLUTE GRANULOCYTE CT 3.6 /CUMM (1.4-6.5); ABSOLUTE LYMPH COUNT 1.1 /CUMM (1.2-3.4); ABSOLUTE MONOCYTE COUNT 0.7 /CUMM (0.10-0.60); BASOPHIL % 0.4 % (0.0-2.0); GRANULOCYTE % 59.8 % (42.2-75.2); HEMATOCRIT 45.2 % (42-52); MEAN CORPUSCULAR HGB 31.9 PG (27.0-31.0); MEAN CORPUSCULAR HGB CONC 33.3 G/DL (33.0-37.0); MEAN CORPUSCULAR VOLUME 95.9 FL (80.0-94.0); MEAN PLATELET VOLUME 8.6 FL (7.4-10.4); PLATELET COUNT 163 /CUMM (130-400); RBC DISTRIBUTION WIDTH 14.3 % (11.5-14.5); RED BLOOD CELL CT 4.71 /CUMM (4.70-6.10); WHITE BLOOD CELL COUNT 6.1 /CUMM (4.8-10.8)
--- NOTE | 2016-09-16 14:21 | Patient Discharge Instructions ---
Discharge Instructions General Discharge Information You were seen/treated for: fever You had these procedures: chest xray Watch for these problems: fever, rash, shortness of breath Special Instructions: please follow up with your PCP within one week of discharge. Please stop taking your Niacin and Tamsulosin Acute Coronary Syndrome Inclusion Criteria At DC or during hospital stay patient has or had the following: ACS DIAGNOSIS No Discharge Core Measures Meds if any: Prescribed or Continued at Discharge Meds if any: NOT Prescribed or Continued at Discharge Congestive Heart Failure Inclusion Criteria At DC or during hospital stay patient has or had the following: CHF DIAGNOSIS No Discharge Core Measures Meds if any: Prescribed or Continued at Discharge Meds if any: NOT Prescribed or Continued at Discharge Cerebrovascular accident Inclusion Criteria At DC or during hospital stay patient has or had the following: CVA/TIA Diagnosis No Discharge Core Measures Meds if any: Prescribed or Continued at Discharge Meds if any: NOT Prescribed or Continued at Discharge Venous thromboembolism Inclusion Criteria VTE Diagnosis No VTE Type NONE VTE Confirmed by (Test) NONE Discharge Core Measures - Per Current guidelines, there needs to be overlap - treatment for the first 5 days of Warfarin therapy. - If discharged on Warfarin prior to 5 days of - overlap therapy, the patient will need to be - assessed for post discharge needs including - *Post discharge parental anticoagulation - *Warfarin and/or parental anticoagulation education - *Follow up date to check INR post discharge At least 5 days overlap therapy as Inpatient No Meds if any: Prescribed or Continued at Discharge Note: Overlap Therapy is Warfarin and Anticoagulant Meds if any: NOT Prescribed or Continued at Discharge
[2016-09-16 15:05] VITALS: BP 110/60
--- NOTE | 2016-09-16 15:05 | PN- Infect Dx ---
Subjective Subjective: Patient feeling better; only mild skin itching and flushing of the skin after taking am meds (Flomax discontinued). No fever. No redness LE's. Review of Systems Comments: 12 points reviewed as noted, otherwise negative. Objective Last 24 Hrs of Vital Signs/I&O Vital Signs Date Time Temp Pulse Resp B/P B/P Pulse O2 O2 Flow FiO2 Mean Ox Delivery Rate 09/16 1129 73 122/70 09/16 0718 98.9 73 20 132/78 92 Room Air 09/15 2218 98.1 76 20 104/66 93 Room Air Intake & Output 09/16 1600 09/16 0800 09/16 0000 Intake Total 700 1000 Output Total 1450 1100 Balance -750 -100 Intake, IV 500 600 Intake, Oral 200 400 Number 0 Bowel Movements Output, Urine 1450 1100 Physical Exam Other Physical Findings: General Appearance Alert, Oriented X3, Cooperative, No Acute Distress Skin Mild residual erythema involving face, chest. LE's w/o redness HEENT Atraumatic, EOMI, Mucous Membr. moist/pink Neck Supple, No JVD, +2 Carotid Pulse w/o Bruit Lymphatic No BASHIR Cardiovascular Regular Rate, Normal S1, Normal S2, No Murmur Lungs BS present, no rales Abdomen Soft, No Tenderness, No Hepatospenomegaly, No Masses Neurological Normal Speech, Sensation Intact, Cranial Nerves 3-12 NL Extremities No Clubbing, No Cyanosis, Normal Pulses, +edema LE's Vascular Normal Pulses, Pulses Symmetrical Results Last 24 Hours of Lab Results: Laboratory Tests 09/16 09/16 0713 0619 Chemistry Sodium (137 - 145 mmol/L) 139 Potassium (3.5 - 5.1 mmol/L) 4.8 Chloride (98 - 107 mmol/L) 111 H Carbon Dioxide (22 - 30 mmol/L) 22 Anion Gap (5 - 16) 6 BUN (9 - 20 mg/dL) 16 Creatinine (0.7 - 1.2 mg/dL) 0.6 L Estimated GFR (>60 ml/min) > 60 BUN/Creatinine Ratio (7 - 25 %) 26.7 H C-Reactive Prot, Quant (<1.0 mg/dL) 6.2 H C-React Prot High Sens (1.0 - 3.0 mg/L) > 15.0 H Hematology CBC w Diff NO MAN DIFF REQ WBC (4.8 - 10.8 /CUMM) 6.1 RBC (4.70 - 6.10 /CUMM) 4.71 Hgb (14.0 - 18.0 G/DL) 15.0 Hct (42 - 52 %) 45.2 MCV (80.0 - 94.0 FL) 95.9 H MCH (27.0 - 31.0 PG) 31.9 H RDW (11.5 - 14.5 %) 14.3 Plt Count (130 - 400 /CUMM) 163 MPV (7.4 - 10.4 FL) 8.6 Gran % (42.2 - 75.2 %) 59.8 Lymphocytes % (20.5 - 51.1 %) 18.8 L Monocytes % (1.7 - 9.3 %) 12.0 H Eosinophils % (0 - 5 %) 9.0 H Basophils % (0.0 - 2.0 %) 0.4 Absolute Granulocytes (1.4 - 6.5 /CUMM) 3.6 Absolute Lymphocytes (1.2 - 3.4 /CUMM) 1.1 L Absolute Monocytes (0.10 - 0.60 /CUMM) 0.7 H Absolute Eosinophils (0.0 - 0.7 /CUMM) 0.5 Absolute Basophils (0.0 - 0.2 /CUMM) 0 PUBS MCHC (33.0 - 37.0 G/DL) 33.3 ESR Westergren (0 - 10 MM) 10 Immunology IgE Pending Last 24 Hours of Stefan Results: [facility] #: [id number] VIJI: 09/14/16 STATUS: RES RECD: 09/14/[address] [facility] [address]: MOISES ZAMAN SOURCE: BLOOD ENTR: 09/14/16 [facility] DR: ALMA BURTON APRN SPDESC: 2ND/VENOUS ORDERED: BLOOD CULTURE Procedure Result > BLOOD CULTURE REPORT Preliminary 09/15/16 No growth after 1 day incubation. Specimen is examined continuously for 5 days before final report unless culture becomes positive. Recent Imaging Studies: SERVICE DATE: 09/14/16 EXAM TYPE: RAD - XRY-PORTABLE CHEST XRAY EXAMINATION: XR PORTABLE CHEST CLINICAL INFORMATION: Weakness. Fever. COMPARISON: Chest x-ray 08/26/2016 6:08 PM TECHNIQUE: Portable frontal view of the chest was obtained. 9:19 PM FINDINGS: Status post median sternotomy. Pacemaker lead in right atrium and right ventricle. Lung volume low with central vascular prominence and increased lung markings. These are less pronounced however than the prior chest x-ray of 08/26/2016. No focal dense consolidation. IMPRESSION: 1. Low inspiratory effort with mild central vascular prominence increased lung markings, less pronounced than the chest x-ray of 08/26/2016. 2. No focal dense consolidation. DICTATED BY: AMALIA GORDON MD DATE/TIME DICTATED:09/14/162129 CEO:QUETA DATE/TIME TRANSCRIBED:09/14/162129 CONFIDENTIAL, DO NOT COPY WITHOUT APPROPRIATE AUTHORIZATION. Assessment/Plan Impression: 70 y/o WM with h/o CAD s/p CABG and right coronary stent, PVD s/p aorto-femoral bypass and left subclavian angioplasty, BPH, first-degree AV block, polymyalgia rheumatica, ROLAND not using CPAP, combined systolic and diastolic heart failure, s /p pacemaker, recently admitted to [facility] (08/26 -08/30) for septic shock in the setting of right ankle cellulitis readmitted 09/14/16. SIRS of unclear etiology Fever (resolved) Generalized rash (evaluate for allergic reaction to medication or foods) Suggestion: 1. Continue to observe off antibiotics. 2. If recurrent fever please repeat BCx2. 3. Trend CBC, BMP. 4. Consider 24 h 5 HIAA urine level and plasma level; eval carcinoid syndrome.
--- NOTE | 2016-09-16 15:23 | Discharge Summary ---
Visit Information Visit Dates Admission Date: 09/14/16 Discharge Date: 09/17/16 Hospital Course Course Attending Physician: ELENA GABRIEL MD Primary Care Physician: ALMA BURTON APRN Consulting Request: Consulting Specialty: Infectious Disease Hospital Course: 70 -year-old gentleman past medical history significant for CAD s/p CABG and right coronary stent, PVD s/p aorto-femoral bypass and left subclavian angioplasty, BPH, first-degree AV block, ROLAND not using CPAP, combined systolic and diastolic heart failure, s/p pacemaker, recent admission to [facility] (08/26 -08/30) for septic shock in the setting of right ankle cellulitis, discharged on Augmentin. Admitted to [facility] for weakness, fatigue and documented fever of 102 at home. Labs on admission: WBC 12.7, macrocytosis, Na 134, BUN 24, glucose 112, lactic acid 1.3, trop neg, proBNP 2400, albumin 3.0. thyroid functions normal. UA clear , small LE, WBC 1-3. Lyme ab negative CXR: low inspiratory effort with mild central vascular prominence increased lung markings, no focal consolidation. EKG: SR, 1st degree AV block, old IWMI, no acute changes. Echo (2017): EF 40-45%, stage 1 diastolic dysfunction, pulm htn. He was admitted to general medicine and following issues were addressed: Fever of unknown origin: Day of admission his MAXIMUM TEMPERATURE was unclear etiology at this time. The following day He reported skin itching and burning and flushing sensation in his ears and face associated with facial erythema. Per RN also the skin redness was worse after receiving his medication. ID was consulted and was thought to be possibly drug induced allergic reaction. Preliminary blood cultures showed no growth. IgE level was sent and was found to be normal. His Tamsulosin and Niacin was thought to be possible causes and was discontinued. His PCP and his was informed of the change. Hypertension His metoprolol was continued during his stay and lisinopril which was held intially held due to hypotension was restarted upon discharge. BPH Discontinued tamsulosin secondary to possible allergic reaction. Peripheral vascular disease Aspirin and Plavix were continued DVT prophylaxis with subcutaneous Lovenox He was a full code. Complications: none Allergies: Coded Allergies: NO KNOWN ALLERGIES (UNKNOWN 08/29/16) Significant Procedures: SERVICE DATE: 09/14/16 EXAM TYPE: RAD - XRY-PORTABLE CHEST XRAY FINDINGS: Status post median sternotomy. Pacemaker lead in right atrium and right ventricle. Lung volume low with central vascular prominence and increased lung markings. These are less pronounced however than the prior chest x-ray of 08/26/2016. No focal dense consolidation. IMPRESSION: 1. Low inspiratory effort with mild central vascular prominence increased lung markings, less pronounced than the chest x-ray of 08/26/2016. 2. No focal dense consolidation. Disposition Summary Disposition Principal Diagnosis: drug induced allergic reaction Additional Diagnosis: bph htn PVD Discharge Disposition: home or self care Discharge Instructions General Discharge Information Code Status: Full Code Patient's Diet: heart healthy Patient's Activity: as tolerated Follow-Up Instructions/Appts: follow up with PCP within one week of discharge. stop taking Niacin and Tamsulosin Medications at Discharge Discharge Medications: Stop taking the following medications: Tamsulosin HCl (Flomax) 0.4 MG CAP.ER.24H ORAL DAILY Niacinamide (Niacin) (Unknown Strength) TABLET ORAL DAILY Colestipol HCl (Colestid) 1 GRAM TABLET ORAL TWICE DAILY Continue taking these medications: Ezetimibe (Zetia) 10 MG TABLET 1 Tablet ORAL DAILY Comments: Last Taken: 09/17/16 Time: 930 AM Multivitamin (Multi-Day Vitamins) 1 EACH TABLET 1 Tablet ORAL DAILY Comments: Last Taken: 09/17/16 Time:0930 Aspirin (Ecotrin*) 81 MG TABLET.DR 1 Tablet ORAL DAILY Comments: Last Taken: 09/17/16 Time: 930 AM Calcium (Elemental-Fr Calcarb) (Calcium) (Unknown Strength) TABLET 1 Tablet ORAL DAILY Comments: NOT TAKEN IN HOSPITAL, TAKE AT HOME Cholecalciferol (Vitamin D3) (Vitamin D) (Unknown Strength) TABLET Unknown Dose ORAL DAILY Comments: Last Taken: 09/17/16 Time:0930 Primidone (Mysoline) 50 MG TABLET 0.5 Tablet ORAL DAILY Comments: Last Taken:09/17/16 Time:09 Lisinopril (Lisinopril) 2.5 MG TABLET 1 Tablet ORAL DAILY Comments: DID NOT TAKE THIS MED IN HOSP. TAKE NEXT DOSE AT HOME Metoprolol Tartrate (Metoprolol Tartrate) 25 MG TABLET 0.5 Tablet ORAL TWICE DAILY Days = 30 Comments: Last Taken:09/17/16 Time:0930 AM Clopidogrel Bisulfate (Clopidogrel) 75 MG TABLET 1 Tablet ORAL DAILY Days = 30 Comments: Last Taken:09/17/16 Time:0930AM Copies To: ALMA BURTON APRN Attending MD Review Statement Documenting Attending: ELENA GABRIEL MD
[2016-09-16 21:36] VITALS: BP 132/70
[2016-09-17 07:17] VITALS: BP 120/75
[2016-09-17 07:46] LABS: ABSOLUTE BASOPHIL COUNT 0 /CUMM (0.0-0.2); ABSOLUTE EOSINOPHIL COUNT 0.5 /CUMM (0.0-0.7); ABSOLUTE GRANULOCYTE CT 3.4 /CUMM (1.4-6.5); ABSOLUTE LYMPH COUNT 1.3 /CUMM (1.2-3.4); ABSOLUTE MONOCYTE COUNT 0.7 /CUMM (0.10-0.60); BASOPHIL % 0.4 % (0.0-2.0); EOSINOPHIL % 8.7 % (0-5); GRANULOCYTE % 58.1 % (42.2-75.2); HEMATOCRIT 46.5 % (42-52); MEAN CORPUSCULAR HGB 31.9 PG (27.0-31.0); MEAN CORPUSCULAR HGB CONC 33.8 G/DL (33.0-37.0); MEAN CORPUSCULAR VOLUME 94.4 FL (80.0-94.0); MEAN PLATELET VOLUME 8.6 FL (7.4-10.4); PLATELET COUNT 161 /CUMM (130-400); RBC DISTRIBUTION WIDTH 14.2 % (11.5-14.5); RED BLOOD CELL CT 4.92 /CUMM (4.70-6.10); WHITE BLOOD CELL COUNT 5.9 /CUMM (4.8-10.8)
--- NOTE | 2016-09-17 08:47 | PN- Housestaff ---
Subjective Follow-up For: fever of unknown origin Subjective: Patient has no complaints. No acute events overnight Review of Systems Constitutional: Reports: see HPI. Objective Last 24 Hrs of Vital Signs/I&O Vital Signs Date Time Temp Pulse Resp B/P B/P Pulse O2 O2 Flow FiO2 Mean Ox Delivery Rate 09/17 0939 64 120/75 09/17 0717 98.3 64 18 120/75 93 Room Air 09/16 2248 94 Room Air 09/16 2222 73 132/70 09/16 2136 99.7 73 20 132/70 94 Room Air 09/16 1505 99.3 70 18 110/60 94 Room Air Intake & Output 09/17 1600 09/17 0800 09/17 0000 Intake Total Output Total 250 Balance -250 Output, Urine 250 Physical Exam General Appearance: Alert, Oriented X3, Cooperative, No Acute Distress HEENT: Atraumatic, PERRLA Neck: Supple, No JVD, No thryomegaly Current Medications: Current Medications Sig/Yamilet Start time Last Medication Dose Route Stop Time Status Admin Acetaminophen 650 MG Q6P PRN 09/15 0130 DCD PO Aspirin Buffered 81 MG DAILY 09/15 1000 DCD 09/17 PO 0940 Cholecalciferol 1,000 IU DAILY 09/15 1000 DCD 09/17 PO 0939 Clopidogrel Bisulfate 75 MG DAILY 09/15 1000 DCD 09/17 PO 0939 Enoxaparin Sodium 40 MG DAILY 09/15 1000 DCD 09/16 SC 1130 Ezetimibe 10 MG DAILY 09/15 1000 DCD 09/17 PO 0939 Metoprolol Tartrate 12.5 MG BID 09/15 1000 DCD 09/17 PO 0939 Multivitamins 1 TAB DAILY 09/15 1000 DCD 09/17 Therapeutic PO 0939 Polyethylene Glycol 17 GM AT BEDTIME 09/15 2199 DCD 09/15 PO 2136 Primidone 25 MG DAILY 09/15 1000 DCD 09/17 PO 0939 Senna/Docusate Sodium 1 TAB AT BEDTIME 09/15 2199 DCD 09/15 PO 2136 Tramadol HCl 50 MG Q6P PRN 09/15 0130 DCD PO Last 24 Hrs of Lab/Stefan Results Last 24 Hrs of Labs/Mics: Laboratory Tests 09/17/16 0630: Anion Gap 8, Estimated GFR > 60, BUN/Creatinine Ratio 25.0, CBC w Diff NO MAN DIFF REQ, RBC 4.92, MCV 94.4 H, MCH 31.9 H, RDW 14.2, MPV 8.6, Gran % 58.1, Lymphocytes % 21.5, Monocytes % 11.3 H, Eosinophils % 8.7 H, Basophils % 0.4, Absolute Granulocytes 3.4, Absolute Lymphocytes 1.3, Absolute Monocytes 0.7 H, Absolute Eosinophils 0.5, Absolute Basophils 0, PUBS MCHC 33.8 Assessment/Plan Assessment: 70 year old gentleman with h/o CAD s/p CABG and right coronary stent, PVD s/p aorto-femoral bypass and left subclavian angioplasty, BPH, first-degree AV block , ROLAND not using CPAP, combined systolic and diastolic heart failure, s/p pacemaker, recently admitted to [facility] (08/26 -08/30) for septic shock in the setting of right ankle cellulitis, current admission for continuing weakness, fatigue and fever of 102 at home. assessment and plan: Fever of unknown origin: unclear etiology at this time. possibly drug induced. IgE pending will discontinue possible causes: Tamsulosin and Niacin his PCP was informed as will as his of the change Hypertension continue metoprolol and restart lisinopril upon discharge. BPH will discontinue tamsulosin Peripheral vascular disease continue with aspirin and plavix Hyperlipidemia DVT prophylaxis with subcutaneous Lovenox Disposition-Patient stable to be discharged home Problem List: 1. Fever 2. Leukocytosis 3. Peripheral vascular disease Pain Ratin Pain Location: N/A Pain Goal: Pain 4 or less Pain Plan: Current reg Tomorrow's Labs & Rationales: None Consulting Request: Consulting Specialty: Infectious Disease
[2016-09-17 09:39] VITALS: BP 120/75
== END 2016-09-17 10:30 | disposition home health service (06) | DRG 864 ==
LOC: ERH 19:10 → 1NO 22:43 → ERHI 22:43 → ENRESERV 09-15 02:00 → 1NO 09-15 02:26
PROVIDERS: Internal Medicine; Physician Assistant; Student in an Organized Health Care Education/Training Program; ADMIT Student in an Organized Health Care Education/Training Program
DX: R50.9 Fever, unspecified (principal); I11.0 Hypertensive heart disease with heart failure; I50.42 Chronic combined systolic (congestive) and diastolic (congestive) heart failure; R65.10 Systemic inflammatory response syndrome (SIRS) of non-infectious origin without acute organ dysfunction; L29.9 Pruritus, unspecified; I73.9 Peripheral vascular disease, unspecified; N40.0 Benign prostatic hyperplasia without lower urinary tract symptoms; I25.10 Atherosclerotic heart disease of native coronary artery without angina pectoris; Z95.1 Presence of aortocoronary bypass graft; Z95.5 Presence of coronary angioplasty implant and graft; I44.0 Atrioventricular block, first degree; G47.33 Obstructive sleep apnea (adult) (pediatric); Z95.0 Presence of cardiac pacemaker; T44.6X5A Adverse effect of alpha-adrenoreceptor antagonists, initial encounter; M35.3 Polymyalgia rheumatica; I25.2 Old myocardial infarction
CPT/HCPCS: 1NSP; 86618; ERO; 36415; 80307; 81001; 82436; 87040; 87070; 87086; 93005; 93010; 96374; 99291; J0131; J1650